=== PATIENT | female | born 1970 | race Caucasian/White ===

== ENCOUNTER 2019-02-11 14:37 | Inpatient (IN) | payer OTHER ==
--- NOTE | 2019-02-11 16:55 | ED ---
Chest Pain HPI - General Chief Complaint: Chest Pain Stated Complaint: chest pain Time Seen by Provider: 02/11/19 14:40 Source: patient, RN/MD, EMS, RN notes reviewed Mode of arrival: EMS - History of Present Illness Initial Comments: Is a 48-year-old female history of heart disease and several stents in the LAD who presents from an outside facility for further evaluation of chest pain. He presented to the other facility with chest pain she did have workup done including troponins a CAT scan of the chest no evidence of pulmonary emboli however due to her symptoms and no cardiac availability she was sent to this facility. She currently is pain-free she denies any fevers chills nausea vomiting sweats or other symptoms she did recently quit smoking in the last 6 months MD Complaint: chest pain, other - Related Data Home Medications Medication Instructions Recorded Confirmed Aspirin EC [Ecotrin Low Dose] 81 mg PO DAILY 02/11/19 02/11/19 Allergies Allergy/AdvReac Type Severity Reaction Status Date / Time cephalexin [From Keflex] Allergy Rash/Hives Verified 02/11/19 15:42 isosorbide [From Imdur] Allergy Anaphylaxis Verified 02/11/19 15:42 Review of Systems ROS Statement: Those systems with pertinent positive or pertinent negative responses have been documented in the HPI. ROS Other: All systems not noted in ROS Statement are negative. EKG Findings - EKG Results: EKG: interpreted by PRINCESS (EKG shows sinus rhythm a 67. Interval 168 QRS duration 70 QT since QTC 438/462 unifocal PVCs noted) Past Medical History Past Medical History: Coronary Artery Disease (CAD), Myocardial Infarction (MD) History of Any Multi-Drug Resistant Organisms: None Reported Past Surgical History: Section, Heart Catheterization With Stent Past Psychological History: No Psychological Hx Reported Smoking Status: Former smoker Past Alcohol Use History: None Reported Past Drug Use History: None Reported General Exam - General Exam Comments Initial Comments: This is a well-developed well-nourished awake alert oriented 3 female General appearance: alert, in no apparent distress Head exam: Present: atraumatic, normocephalic, normal inspection Eye exam: Present: normal appearance, PERRL, EOMI. Absent: scleral icterus, conjunctival injection, periorbital swelling ENT exam: Present: normal exam, mucous membranes moist Neck exam: Present: normal inspection. Absent: tenderness, meningismus, lymphadenopathy Respiratory exam: Present: normal lung sounds bilaterally. Absent: respiratory distress, wheezes, rales, rhonchi, stridor Cardiovascular Exam: Present: regular rate, normal rhythm, normal heart sounds. Absent: systolic murmur, diastolic murmur, rubs, gallop, clicks GI/Abdominal exam: Present: soft, normal bowel sounds. Absent: distended, tenderness, guarding, rebound, rigid Extremities exam: Present: normal inspection, full ROM, normal capillary refill. Absent: tenderness, pedal edema, joint swelling, calf tenderness Back exam: Present: normal inspection Neurological exam: Present: alert, oriented X3, CN II-XII intact Psychiatric exam: Present: normal affect, normal mood Skin exam: Present: warm, dry, intact, normal color. Absent: rash Course Vital Signs 02/11/19 02/11/19 14:48 16:36 Temperature 97.8 F Pulse Rate 60 56 L Respiratory 18 16 Rate Blood Pressure 104/65 125/74 O2 Sat by Pulse 98 99 Oximetry Chest Pain MDM - MDM Did review the materials from the outside facility I did discuss the case with Dr. Smith patient will be admitted with cardiology consultation. Disposition Clinical Impression: Unstable angina pectoris, PVC's (premature ventricular contractions) Disposition: ADMITTED IP TO THIS HOSP Condition: Fair Referrals: None,Stated [Primary Care Provider] - 1-2 days
[2019-02-11] MEDS ORDERED: NITROGLYCERIN SL TABS 0.4 MG TAB SUBLINGUAL PRN (17:02)
[2019-02-11] MEDS ORDERED: HEPARIN SODIUM,PORCINE 5,000 UNIT/ML 1 ML VIAL IV ONE (17:02)
[2019-02-11] MEDS ORDERED: HEPARIN SOD,PORK IN 0.45% NACL 25,000 UNIT in 0.45% NACL 1 250ML.BAG IV SCH (17:15)
[2019-02-11] MEDS ORDERED: ACETAMINOPHEN TAB 325 MG TAB PO PRN (17:23)
--- NOTE | 2019-02-11 17:28 | P.HPIM ---
History of Present Illness H&P Date: 02/11/19 Chief Complaint: Chest pain transfer from [facility] The patient is a 48-year-old female with a past medical history of, essential hypertension, coronary artery disease with stenting of the mid LAD 04/30/17, history of AL who presents to the ER after being transferred from [facility] where she initially presented earlier today with chest pain. Apparently the patient began having chest pain at rest while she was watching TV, she reports chest squeezing and tightness on the left side of her chest with some associated nausea and dry heaves and radiation into her left upper extremity. She reports some shortness of breath and diaphoresis. She denies any lower extremity swelling, she denies palpitations. The patient reported taking a single dose of nitroglycerin with no improvement subsequent repeat dose of nitroglycerin improved her discomfort now rating it at a 2 out of 10. The patient is a former smoker and quit smoking approximate 6 months ago The patient reports her last heart catheterization was when she had her AL in 2011 at [facility] performed by Dr. Ospina. The portion reports that she was supposed to be taking Plavix but has been unable to fill any of her medications secondary to losing insurance over a year ago. She only reports to be taking a daily baby aspirin. The patient had a workup with a negative troponin less than 0.012, chest x-ray showed basilar atelectasis. EKG apparently showed ventricular bigeminy, CTA of the chest was negative for PE but was consistent with calcifications along the left cardiac silhouett, there is nonspecific thickening of the adrenal gland correlate for adrenal hyperplasia. Her other labs were relatively benign Review of Systems Pertinent positives per HPI all other review of systems was negative Past Medical History Past Medical History: Coronary Artery Disease (CAD), Myocardial Infarction (AL) History of Any Multi-Drug Resistant Organisms: None Reported Past Surgical History: Section, Heart Catheterization With Stent Past Psychological History: No Psychological Hx Reported Smoking Status: Former smoker Past Alcohol Use History: None Reported Past Drug Use History: None Reported Medications and Allergies Home Medications Medication Instructions Recorded Confirmed Type Aspirin EC [Ecotrin Low Dose] 81 mg PO DAILY 02/11/19 02/11/19 History Allergies Allergy/AdvReac Type Severity Reaction Status Date / Time cephalexin [From Keflex] Allergy Rash/Hives Verified 10/16/19 15:42 isosorbide [From Imdur] Allergy Anaphylaxis Verified 02/11/19 15:42 Physical Exam Vitals: Vital Signs Temp Pulse Resp BP Pulse Ox 02/11/19 16:36 56 L 16 125/74 99 02/11/19 14:48 97.8 F 60 18 104/65 98 Intake and Output 02/11/19 02/11/19 02/11/19 06:59 14:59 22:59 Other: Weight 81.647 kg Constitutional: No acute distress, conversant, pleasant Eyes: Anicteric sclerae, moist conjunctiva, no lid-lag, PERRLA ENMT: NC/AT,Oropharynx clear, no erythema, exudates Neck:Supple, FROM, no masses, or JVD, No carotid bruits; No thyromegaly Lungs: Clear to auscultation, Clear to percussion, Normal respiratory effort, no accessory muscle use Cardiovascular: Heart regular in rate and rhythm, No murmurs, gallops, or rubs no peripheral edema Abdominal: Soft Nontender, nom distended, no guarding, no rebound or rigidity, Normoactive bowel sounds No hepatomegaly, No splenomegaly, No palpable mass No abdominal wall hernia noted Skin: Normal temperature, tone, texture, turgor, No induration No subcutaneous nodules, No rash, lesions, No ulcers Extremities:No digital cyanosis No clubbing, Pedal pulses intact and symmetrical Radial pulses intact and symmetrical Normal gait and station, No calf tenderness Psychiatric: Alert and oriented to person, place and time, Appropriate affect Intact judgement Neuro: Muscles Strength 5/5 in all 4 extremities, Sensation to light touch grossly present throughout, Cranial nerves II-XII grossly intact. No focal sensory deficits Assessment and Plan Assessment: Chest pain Coronary artery disease with history of stenting History of AL Essential hypertension Dyslipidemia Former smoker Plan: The patient observation anticipated less than 2 midnight stay with chest pain in a patient with a history of AL with CAD with stenting and has been noncompliant with pharmacological therapy over the last year secondary to losing insurance. She is continued on chest pain protocol to rule out ACS, continue to trend her cardiac enzymes initial has been negative, EKG did show ventricular bigeminy without any acute sedation of ischemia. The patient will be started on dual antiplatelet therapy with Plavix and aspirin, we'll check a lipid panel and start her on statin therapy with Lipitor, the patient is continued on heparin drip per protocol will order echocardiogram consult cardiology and await further recommendations CODE STATUS: DNI CPR/chest compressions and medications are acceptable Expected dischar-2 days Surrogate decision-maker: Blaise Samaniegojuliane Jasen Anticipated discharge place: Home Prophylaxis SCDs heparin
[2019-02-11 17:48] VITALS: RESP 18
[2019-02-11] MEDS: NITROGLYCERIN OINT 1 INCH/GM PACKET TOPICAL SCH ×2 (20:56→20:59)
[2019-02-11] MEDS: METOPROLOL TARTRATE 25 MG TAB PO SCH (20:56)
[2019-02-11] MEDS: ATORVASTATIN 40 MG TAB PO SCH (20:56)
[2019-02-12] MEDS ORDERED: HEPARIN SODIUM,PORCINE 5,000 UNIT/ML 1 ML VIAL IV PRN (02:34)
[2019-02-12 04:20] LABS: Cholesterol 167 mg/dL (<200); HDL Cholesterol 46 mg/dL (40-60); LDL Cholesterol,Calculated 95 mg/dL (0-99); Triglycerides 131 mg/dL (<150)
[2019-02-12] MEDS ORDERED: CLOPIDOGREL 75 MG TAB PO SCH (09:00)
[2019-02-12] MEDS ORDERED: ASPIRIN 325 MG TAB PO SCH (09:00)
--- NOTE | 2019-02-12 09:09 | P.PN ---
Subjective Progress Note Date: 02/12/19 Principal diagnosis: cp Denies chest pain today, no abdominal pain, no shortness of breath. He had a run of V. tach overnight. Objective - Vital Signs Vital signs: Vital Signs Temp 98.0 F 02/12/19 07:00 Pulse 71 02/12/19 07:00 Resp 18 02/12/19 07:00 BP 106/69 02/12/19 07:00 Pulse Ox 99 02/12/19 07:15 Intake & Output 02/11/19 02/12/19 02/12/19 18:59 06:59 18:59 Intake Total 87.855 Balance 87.855 Weight 81.647 kg Intake: Intake, IV Titration 87.855 Amount Heparin Sod,Pork in 0.45% 87.855 NaCl 25,000 unit In 0.45 % NaCl 1 250ml.bag @ 12 UNITS/KG/HR 9.798 mls/hr IV .Q24H [facility] Rx#: [id number] Other: Voiding Method Toilet Toilet # Voids 1 - Exam Constitutional: No acute distress, conversant, pleasant Eyes: Anicteric sclerae, moist conjunctiva, no lid-lag, PERRLA ENMT: NC/AT Neck:Supple, FROM, no masses, or JVD Lungs: Clear to auscultation, Clear to percussion Cardiovascular: Heart regular in rate and rhythm Abdominal: Soft Nontender, non distended, no guarding, no rebound or rigidity, Skin: Normal temperature, tone, texture, turgor Extremities:No digital cyanosis No clubbing Psychiatric: Alert and oriented to person, place and time, Appropriate affect Intact judgement Neuro: Muscles Strength 5/5 in all 4 extremities, Sensation to light touch grossly present throughout, Cranial nerves II-XII grossly intact. No focal sensory deficits - Labs Labs: Abnormal Lab Results - Last 24 Hours (Table) 02/12/19 02/12/19 Range/Units 01:42 08:08 APTT 37.1 H 81.8 H (22.0-30.0) sec Assessment and Plan Plan: Chest pain: Continue to monitor, negative cardiac enzymes, appreciate cardiology input. Continue on Plavix and aspirin. On heparin Coronary artery disease with history of stenting and an episode of V. tach: Cardiology following, echo today, possible cath tomorrow History of ID negative cardiac enzymes: Monitor Essential hypertension: Continue lisinopril and metoprolol Dyslipidemia: Continue Lipitor Former smoker without evidence of withdrawal Change to inpatient Disposition: Pending clinical progression
[2019-02-12] MEDS: LISINOPRIL 5 MG TAB PO SCH (10:46)
[2019-02-12] MEDS: PANTOPRAZOLE 40 MG TABLET PO SCH (10:47)
[2019-02-12] MEDS: ASPIRIN 81 MG PO SCH (10:47)
[2019-02-12] MEDS ORDERED: AMINOPHYLLINE 500 MG/20 ML VIAL IV PRN (10:56)
[2019-02-12] MEDS ORDERED: CAFFEINE CITRATE 60 MG/3 ML VIAL IV PRN (10:56)
[2019-02-12] MEDS: METOPROLOL TARTRATE 25 MG TAB PO SCH (11:14)
[2019-02-12] MEDS ORDERED: SODIUM CHLORIDE 0.9% IV ONE (11:15)
[2019-02-12] MEDS ORDERED: DIPYRIDAMOLE IV ONE (11:15)
--- NOTE | 2019-02-12 11:17 | P.CRDCN ---
History of Present Illness History of present illness: This is a pleasant 48-year-old female past medical history significant for coronary artery disease and myocardial infarction in 2011 with stent placement to the mid-LAD then subsequent stenting to the mid-LAD again in 2014 and most recently in April 2017. She also states she has a history of an LV thrombus for which she was on coumadin however lost her insurance around 1-year ago and has not been on meds since that time. She quit smoking 6 months ago. Her cardiology care was all done at [facility]. We have been asked to see her in consultation for chest pain. She initially presented to [facility] and was transferred here for further cardiac evaluation. She states yesterday morning after waking up she was sitting down on the couch watching TV and she felt an acute onset of a squeezing pain in the left precordial region associated with shortness of breath, nausea with dry heaves and mild diaphoresis. The discomfort persisted for the car ride from [place] to [place] despite taking a nitro SL at home. On arrival there she was given 2 more nitro and aspirin. Shortly thereafter the discomfort subsided. She has had no further symptoms. There was no radiation to the arm, back, neck or jaw. She does states this felt different than when she had her GA in 2012 or the in-stent restenosis events. Telemetry tracings reviewed and last evening around 2119 she had a run of 11-beats of wide complex ventricular rhythm. EKG on arrival reveals sinus mechanism with PVC's, inferior Q-wave, poor R-wave progression with heart rate of 67. Chest x-ray obtained to [facility] is negative for an acute cardiopulmonary process. CT of the chest pain to [facility] is negative for pulmonary embolism with evidence of coronary calcification. Laboratory data reviewed, [facility] records reviewed creatinine 0.7, WBC 10.2 and troponin negative 1. Troponins obtained at this facility negative 3 with an LDL of 95. Current cardiac medications include aspirin 81 mg daily. At the time of my exam: CONSTITUTIONAL: Denies fever. Denies chills. EYES: Denies blurred vision. Denies vision changes. Denies eye pain. EARS, NOSE, MOUTH & THROAT: Denies headache. Denies sore throat. Denies ear pain. CARDIOVASCULAR: Denies chest pain. Denies shortness of breath. Denies orthopnea. Denies PND. Denies palpitations. RESPIRATORY: Denies cough. GASTROINTESTINAL: Denies abdominal pain. Denies diarrhea. Denies constipation. Denies nausea. Denies vomiting. MUSCULOSKELETAL: Denies myalgias. INTEGUMENTARY: Denies pruitis. Denies rash. NEUROLOGIC: Denies numbness. Denies tingling. Denies weakness. PSYCHIATRIC: Denies anxiety. Denies depression. ENDOCRINE: Denies fatigue. Denies weight change. Denies polydipsia. Denies polyurina. GENITOURINARY: Denies burning, hematuria or urgency with micturation. HEMATOLOGIC: Denies history of anemia. Denies bleeding. Blood pressure 106/69 heart rate 71 afebrile maintaining oxygen saturation on room air GENERAL: This is a 48-year-old female in no apparent distress at the time of my examination. HEENT: Head is atraumatic, normocephalic. Pupils are equal, round. Sclerae anicteric. Conjunctivae are clear. Mucous membranes of the mouth are moist. Neck is supple. There is no jugular venous distention. No carotid bruit is heard. LUNGS: Clear to auscultation no wheezes, rales or rhonchi. No chest wall tenderness is noted on palpation or with deep breathing. HEART: Regular rate and rhythm with systolic ejection murmur at the left sternal border, no rubs or gallops. S1 and S2 heard. ABDOMEN: Soft, nontender. Bowel sounds are heard. No organomegaly noted. EXTREMITIES: No evidence of peripheral edema and no calf tenderness noted. VASCULAR: Radial and dorsalis pedis pulses palpated, no evidence of clubbing. NEUROLOGIC: Patient is awake, alert and oriented x3. ASSESSMENT Chest pain, an acute coronary event has been ruled out. History of coronary artery disease s/p stent placement to the mid-LAD with in- stent restenosis History of LV thrombus in the past History of myocardial infarction 2012 Former nicotine dependence, quit 6 months ago PLAN Symptoms occur at rest are more atypical, however given her prior history and no medications for over 1-year we recommend cardiac catheterization. However, the patient would like to have a stress test first, she feels her symptoms are different than in the past when she has needed a stent. This is an agreeable plan. We have discussed the need for heart cath if the stress test is abnormal and she is agreeable to that. An acute coronary event has been ruled out. Obtain 2D echocardiogram and doppler study to assess cardiac structure and function. Decrease aspirin to 81 mg daily. Perform persantine stress test it assess for reversible cardiac ischemia. Thank you kindly for this consultation. Nurse Practitioner note has been reviewed, I agree with a documented findings and plan of care. Patient was seen and examined. Past Medical History Past Medical History: Coronary Artery Disease (CAD), Myocardial Infarction (GA) Additional Past Medical History / Comment(s): pt states she had a blood clot in left ventricle and was on coumadin for a period of time and now is off coumadin. Last Myocardial Infarction Date:: April 2017 History of Any Multi-Drug Resistant Organisms: None Reported Past Surgical History: Section, Heart Catheterization With Stent Past Anesthesia/Blood Transfusion Reactions: No Reported Reaction Additional Past Anesthesia/Blood Transfusion Reaction / Comment(s): pt states she has never had a blood transfusion. Date of Last Stent Placement:: Apr 2017 Past Psychological History: No Psychological Hx Reported Smoking Status: Former smoker Past Alcohol Use History: None Reported Past Drug Use History: None Reported - Past Family History Mother Family Medical History: No Reported History Additional Family Medical History / Comment(s): pt does not know. pt is adopted. Father Family Medical History: No Reported History Additional Family Medical History / Comment(s): pt does not know. pt is adopted. Medications and Allergies Home Medications Medication Instructions Recorded Confirmed Type Aspirin EC [Ecotrin Low Dose] 81 mg PO DAILY 02/11/19 02/11/19 History Allergies Allergy/AdvReac Type Severity Reaction Status Date / Time cephalexin [From Keflex] Allergy Rash/Hives Verified 02/11/19 15:42 isosorbide [From Imdur] Allergy Anaphylaxis Verified 02/11/19 15:42 Physical Exam Vitals: Vital Signs Temp Pulse Pulse Pulse Resp BP BP 02/12/19 07:15 02/12/19 07:00 98.0 F 71 18 106/69 02/12/19 04:00 98.3 F 53 L 18 140/78 02/12/19 00:00 98.2 F 56 L 18 117/72 02/11/19 17:47 97.6 F 65 18 02/11/19 17:31 98 F 63 16 123/75 10/16/19 16:36 56 L 16 125/74 02/11/19 14:48 97.8 F 60 18 104/65 BP Pulse Ox 02/12/19 07:15 99 02/12/19 07:00 100 02/12/19 04:00 99 02/12/19 00:00 98 02/11/19 17:47 117/70 99 02/11/19 17:31 99 02/11/19 16:36 99 02/11/19 14:48 98 Intake and Output 02/11/19 02/12/19 02/12/19 22:59 06:59 14:59 Intake Total 87.855 Balance 87.855 Intake: Intake, IV Titration 87.855 Amount Heparin Sod,Pork in 0.45% 87.855 NaCl 25,000 unit In 0.45 % NaCl 1 250ml.bag @ 12 UNITS/KG/HR 9.798 mls/hr IV .Q24H [facility] Rx#: [id number] Other: Voiding Method Toilet Toilet # Voids 1 Results Cardiac Enzymes 02/11/19 02/11/19 02/12/19 Range/Units 15:07 20:44 03:28 Troponin I <0.012 <0.012 <0.012 (0.000-0.034) ng/mL Coagulation 02/12/19 Range/Units 01:42 APTT 37.1 H (22.0-30.0) sec Lipids 02/12/19 Range/Units 03:28 Triglycerides 131 (<150) mg/dL Cholesterol 167 (<200) mg/dL HDL Cholesterol 46 (40-60) mg/dL Current Medications Generic Name Dose Route Start Last Admin Trade Name Freq PRN Reason Stop Dose Admin Acetaminophen 650 mg 02/11/19 17:23 Tylenol Tab PO Q4HR PRN Pain Aspirin 325 mg 02/12/19 09:00 Aspirin PO DAILY [facility] Atorvastatin Calcium 40 mg 02/11/19 21:00 02/11/19 20:56 Lipitor PO 40 mg HS JASMIN Administration Clopidogrel Bisulfate 75 mg 02/12/19 09:00 Plavix PO DAILY [facility] Heparin Sodium (Porcine) 0 unit 02/12/19 02:34 02/12/19 03:59 Heparin IV 4,000 unit PER PROTOCOL PRN Administration Low PTT Protocol Heparin Sodium/Sodium Chloride 250 mls @ 9.798 mls/hr 02/11/19 17:15 02/12/19 02:27 25,000 unit/ Sodium Chloride IV 15 units/kg/hr .Q24H [facility] 12.247 mls/hr Titration Protocol 12 UNITS/KG/HR Lisinopril 5 mg 02/12/19 09:00 Zestril PO DAILY [facility] Metoprolol Tartrate 25 mg 02/11/19 21:00 02/11/19 20:56 Lopressor PO 25 mg BID [facility] Administration Nitroglycerin 0.4 mg 02/11/19 17:02 Nitrostat SUBLINGUAL Q5M PRN Chest Pain Nitroglycerin 1 inch 02/11/19 18:00 02/11/19 20:59 Nitro-Bid Oint TOPICAL Not Given Q6HR [facility] Pantoprazole Sodium 40 mg 02/12/19 07:30 Protonix PO AC-BRKFST [facility] Intake and Output 02/11/19 02/12/19 02/12/19 22:59 06:59 14:59 Intake Total 87.855 Balance 87.855 Intake: Intake, IV Titration 87.855 Amount Heparin Sod,Pork in 0.45% 87.855 NaCl 25,000 unit In 0.45 % NaCl 1 250ml.bag @ 12 UNITS/KG/HR 9.798 mls/hr IV .Q24H [facility] Rx#: [id number] Other: Voiding Method Toilet Toilet # Voids 1
[2019-02-12] MEDS ORDERED: AMINOPHYLLINE 500 MG/20 ML VIAL IV ONE (12:26)
--- NOTE | 2019-02-12 13:22 | NM ---
EXAMINATION TYPE: NM stress persantine cardiolit DATE OF EXAM: 02/12/2019 COMPARISON: NONE HISTORY: Chest pain, shortness of breath, palpitations, and history of tobacco abuse TECHNIQUE: After the intravenous administration of 9.99 mCi Tc 99m Sestamibi - Cardiolite resting SP ECT images acquired 45 minutes post injection. The patient received 46.5 mg Persantine, 26.1 mCi Tc 99m Sestamibi - Stress images obtained 30 minute s post injection FINDINGS: Review of stress and rest SPECT images demonstrates no reversible perfusion abnormality. Moderate fix ed defects are seen of the cardiac apex and of the inferior lateral wall with corresponding abnormal wall motion. Gated analysis shows normal wall motion with an estimated left ventricular ejection frac tion of 41 %. TID is within normal limits measuring 1.02. IMPRESSION: 1. No scintigraphic evidence for reversible ischemia. 2. Moderate fixed defects of the cardiac apex and inferior lateral wall representing old infarcts. 3. Estimated left ventricular ejection fraction of 41%.
--- NOTE | 2019-02-12 18:52 | P.STRESS ---
- Stress Test Note Stress Test Results/Findings: Exam Performed: NM stress persantine cardiolite Exam Date: 02/12/19 Reason for Exam: CHEST PAIN Height: 5 ft 4 in Weight: 81.647 kg Protocol: PERSANTINE Stage: NA Duration of Exercise: NA Resting Heart Rate: 52 Resting Blood Pressure: 109/66 Maximum Achieved Heart Rate: 65 Maximum Achieved Blood Pressure: 140/71 85% PMHR: NA 100% PMHR: NA METS: NA Technologist Comment: Stress Test Results/Findings: This is a 48-year-old female with history of ischemic heart disease with previous stent placement who was admitted to the hospital with complaints of chest pain and shortness of breath and palpitations. EKGs and enzymes were negative. Stress data: Baseline EKG showed sinus rhythm with normal CA interval and QRS duration with small Q waves in inferior leads. Blood pressure at rest is 109/66 with a pulse rate of 52. A standard dose of Persantine was infused. EKGs taken during and after the infusion did not reveal any significant changes from the baseline. Occasional PVCs are noted. Final impression: #1. Negative Persantine stress test #2. Report on the nuclear images to be given by the radiologist
--- NOTE | 2019-02-12 18:53 | ECHOF ---
Referral Reason:Acute Coronary Syndrome MEASUREMENTS -------- HEIGHT: 162.6 cm WEIGHT: 81.6 kg BP: 140/70 RVIDd: 3.5 cm (< 3.3) IVSd: 1.3 cm (0.6 - 1.1) LVIDd: 5.1 cm (3.9 - 5.3) LVPWd: 1.2 cm (0.6 - 1.1) IVSs: 1.5 cm LVIDs: 3.6 cm LVPWs: 1.7 cm LA Diam: 4.8 cm (2.7 - 3.8) LAESV Index (A-L): 41.86 ml/m Ao Diam: 2.8 cm (2.0 - 3.7) AV Cusp: 2.1 cm (1.5 - 2.6) LA Diam: 4.0 cm (2.7 - 3.8) MV EXCURSION: 22.560 mm (> 18.000) MV EF SLOPE: 89 mm/s (70 - 150) EPSS: 0.9 cm MV E Brent: 0.91 m/s MV A Brent: 0.64 m/s MV E/A Ratio: 1.43 RAP: 5.00 mmHg RVSP: 21.84 mmHg TAPSE: 25.08 mm FINDINGS -------- Sinus rhythm. This was a techncally difficult study with suboptimal views, , Lumason utilized for enhancement of im ages. The left ventricular size is normal. Left ventricular wall thickness is normal. Overall left vent ricular systolic function is moderate-severely impaired with, an EF between 30 - 35 %. Anterseptal Hypokinesis Inferior Hypokinesis Septal Hypokinesis Hammond Hypokinesis. The right ventricle is normal in size. The left atrium is markedly dilated. LA is severely dilated >40 ml/m2 The right atrial size is normal. 5.0mg OF Lumason UTLIZED: 2 OR MORE WALL SEGMENTS NOT VISUALIZED. The aortic valve is trileaflet, and appears structurally normal. No aortic stenosis or regurgitation. Mild mitral annular calcification present. Mild mitral regurgitation is present. No regurgitation noted Right ventricular systolic pressure is normal at < 35 mmHg. There is no ev idence of pulmonary hypertension. There is no pulmonic regurgitation present. The aortic root size is normal. There is no pericardial effusion. CONCLUSIONS -------- 1. Sinus rhythm. 2. This was a techncally difficult study with suboptimal views, , Lumason utilized for enhancement of images. 3. The left ventricular size is normal. 4. Left ventricular wall thickness is normal. 5. Overall left ventricular systolic function is moderate-severely impaired with, an EF between 30 - 35 %. 6. Anterseptal Hypokinesis 7. Inferior Hypokinesis 8. Septal Hypokinesis 9. Hammond Hypokinesis. 10. The right ventricle is normal in size. 11. The left atrium is markedly dilated. 12. LA is severely dilated >40 ml/m2 13. The right atrial size is normal. 14. 5.0mg OF Lumason UTLIZED: 2 OR MORE WALL SEGMENTS NOT VISUALIZED. 15. The aortic valve is trileaflet, and appears structurally normal. No aortic stenosis or regurgitat ion. 16. Mild mitral annular calcification present. 17. Mild mitral regurgitation is present. 18. No regurgitation noted 19. Right ventricular systolic pressure is normal at < 35 mmHg. 20. There is no evidence of pulmonary hypertension. 21. There is no pulmonic regurgitation present. 22. The aortic root size is normal. 23. There is no pericardial effusion. STRAIGHT CUTTER MACHINE: Coco Ballesteros RDCS
[2019-02-12] MEDS: METOPROLOL TARTRATE 12.5 MG TAB PO SCH (20:24)
[2019-02-12] MEDS: ATORVASTATIN 40 MG TAB PO SCH (20:24)
[2019-02-13 06:39] LABS: HCT 37.4 % (34.0-46.0); HGB 12.4 gm/dL (11.4-16.0); MCH 31.2 pg (25.0-35.0); MCV 94.5 fL (80.0-100.0); Mean Platelet Volume 6.3; Platelet Count 252 k/uL (150-450); RBC 3.96 m/uL (3.80-5.40); RDW 13.1 % (11.5-15.5); WBC 8.9 k/uL (3.8-10.6)
[2019-02-13 06:43] LABS: ALT 28 U/L (9-52); AST 26 U/L (14-36); African American GFR (CKD) >90 (>60 ml/min/1.73 sqM); Albumin 3.5 g/dL (3.5-5.0); Alkaline Phosphatase 45 U/L (38-126); Anion Gap 6 mmol/L; Blood Urea Nitrogen 14 mg/dL (7-17); Calcium 8.4 mg/dL (8.4-10.2); Carbon Dioxide 28 mmol/L (22-30); Chloride 105 mmol/L (98-107); Glucose 92 mg/dL (74-99); Sodium 139 mmol/L (137-145); Total Bilirubin 0.3 mg/dL (0.2-1.3); Total Protein 6.3 g/dL (6.3-8.2)
[2019-02-13 07:43] LABS: Eosinophils # (M) 0.09 k/uL (0-0.7); Lymphocytes # (M) 2.94 k/uL (1.0-4.8); Monocytes # (M) 0.45 k/uL (0-1.0); Neutrophils % (M) 61 %; Nucleated Red Blood Cells 0 /100 WBC (0-0); Total Cells Counted 100
--- NOTE | 2019-02-13 09:51 | P.PN ---
Subjective This is a pleasant 48-year-old female past medical history significant for coronary artery disease and myocardial infarction in 2011 with stent placement to the mid-LAD then subsequent stenting to the mid-LAD again in 2014 and most recently in April 2017. She also states she has a history of an LV thrombus for which she was on coumadin however lost her insurance around 1-year ago and has not been on meds since that time. She quit smoking 6 months ago. She is seen and examined sitting up in bed in no acute distress. She denies an f urther symptoms of chest discomfort. No shortness of breath, dizziness or palpitations. Blood pressure 114/70 heart rate 58 afebrile maintaining oxygen saturation on room air. Persantine stress test is negative for reversible ischemia with a moderate fixed defect at the cardiac apex and inferior lateral wall. LVEF 41%. Echocardiogram revealed impaired LV systolic function with ejection fraction 30-35%, anterior septal, inferior, septal and apical hypokinesia, mild mitral regurgitation noted. Currently maintained on aspirin 81 mg daily, atorvastatin 40 mg daily, lisinopril 5 mg daily metoprolol 12.5 mg twice a day. Laboratory data reviewed, creatinine 0.74, potassium 4.0. GENERAL: This is a 48-year-old female in no apparent distress at the time of my examination. HEENT: Head is atraumatic, normocephalic. Pupils are equal, round. Sclerae anicteric. Conjunctivae are clear. Mucous membranes of the mouth are moist. Neck is supple. There is no jugular venous distention. No carotid bruit is heard. LUNGS: Clear to auscultation no wheezes, rales or rhonchi. No chest wall tende rness is noted on palpation or with deep breathing. HEART: Regular rate and rhythm with systolic ejection murmur at the left sternal border, no rubs or gallops. S1 and S2 heard. EXTREMITIES: No evidence of peripheral edema and no calf tenderness noted. ASSESSMENT Chest pain, an acute coronary event has been ruled out. History of coronary artery disease s/p stent placement to the mid-LAD with in- stent restenosis History of LV thrombus in the past History of myocardial infarction 2011 Former nicotine dependence, quit 6 months ago PLAN Stable for discharge from a cardiac perspective on the current regimen. Patient states she would like to follow-up in [place] for further cardiac care. A ppointment will be made for her to see Dr. Hart in the office in 2 weeks. Nurse Practitioner note has been reviewed, I agree with a documented findings and plan of care. Patient was seen and examined. Objective - Vital Signs Vital signs: Vital Signs Temp 98.5 F 02/13/19 08:00 Pulse 50 L 02/13/19 08:00 Resp 18 02/13/19 08:00 BP 114/70 02/13/19 08:00 Pulse Ox 98 02/13/19 08:00 Intake & Output 02/12/19 02/13/19 02/13/19 18:59 06:59 18:59 Weight 81.647 kg Other: Voiding Method Toilet Toilet # Voids 1 - Labs CBC & Chem 7: 02/13/19 06:11 02/13/19 06:11
[2019-02-13] MEDS: METOPROLOL TARTRATE 12.5 MG TAB PO SCH (09:59)
[2019-02-13] MEDS: ASPIRIN 81 MG PO SCH (09:59)
[2019-02-13] MEDS: LISINOPRIL 5 MG TAB PO SCH (09:59)
[2019-02-13] MEDS: PANTOPRAZOLE 40 MG TABLET PO SCH (09:59)
[2019-02-13 11:30] VITALS: BP 135/80; PULSE 60; TEMP 98.1
--- NOTE | 2019-02-13 12:29 | P.DS ---
Providers Date of admission: 02/12/19 09:09 Expected date of discharge: 02/13/19 Attending physician: Ishan Smith MD Consults: 02/11/19 17:02 Consult Physician Urgent Consulting Provider: Ab Mckeon Consult Reason/Comments: Chest pain, unstable angina, PVCs Do you want consulting provider notified?: Yes Primary care physician: Stated None Hospital Course: Diagnoses upon discharge: 1. Chest pain, unspecified etiology 2. History of left ventricular thrombus in the past 3. History of myocardial infarction 4. History of tobacco use without evidence of withdrawal 5. Hyperlipidemia 6. Essential hypertension 7. Coronary artery disease 8. Obesity BMI 30.9 9. Chronic systolic congestive heart failure ejection fraction 30-35% HPI: The patient is a 48-year-old female with a past medical history of, essential hypertension, coronary artery disease with stenting of the mid LAD 04/30/17, history of MT who presents to the ER after being transferred from [facility] where she initially presented earlier today with chest pain. Apparently the patient began having chest pain at rest while she was watching TV, she reports chest squeezing and tightness on the left side of her chest with some associated nausea and dry heaves and radiation into her left upper extremity. She reports some shortness of breath and diaphoresis. She denies any lower extremity swelling, she denies palpitations. The patient reported taking a single dose of nitroglycerin with no improvement subsequent repeat dose of nitroglycerin improved her discomfort now rating it at a 2 out of 10. The patient is a former smoker and quit smoking approximate 6 months ago The patient reports her last heart catheterization was when she had her MT in 2011 at [facility] performed by Dr. Ospina. The portion reports that she was supposed to be taking Plavix but has been unable to fill any of her medications secondary to losing insurance over a year ago. She only reports to be taking a daily baby aspirin. The patient had a workup with a negative troponin less than 0.012, chest x-ray showed basilar atelectasis. EKG apparently showed ventricular bigeminy, CTA of the chest was negative for PE but was consistent with calcifications along the left cardiac silhouett, there is nonspecific thickening of the adrenal gland correlate for adrenal hyperplasia. Her other labs were relatively benign Hospital course and treatment: Patient was admitted to the hospital with chest pain, cardiac enzymes were negative. 2-D echo was consistent with EF 30-35%, she was evaluated by cardiology, medications were optimized and prescribed by cardiology. She underwent a stress test which was negative. Her chest pain resolved, she remained hemodynamically stable. Labs were otherwise unremarkable. She was cleared for discharge by cardiology, she will be discharged home to follow-up with PCP and cardiology as an outpatient. Patient Condition at Discharge: Fair Plan - Discharge Summary Discharge Rx Participant: Yes New Discharge Prescriptions: New Atorvastatin [Lipitor] 40 mg PO HS #90 tab Metoprolol Tartrate [Lopressor] 12.5 mg PO BID #180 tab Lisinopril [Zestril] 5 mg PO DAILY #90 tab Aspirin 81 mg PO DAILY chew Pantoprazole [Protonix] 40 mg PO AC-BRKFST tablet. Continue Aspirin EC [Ecotrin Low Dose] 81 mg PO DAILY Discharge Medication List Aspirin EC [Ecotrin Low Dose] 81 mg PO DAILY 02/11/19 [History] Aspirin 81 mg PO DAILY chew 02/13/19 [Rx] Atorvastatin [Lipitor] 40 mg PO HS #90 tab 02/13/19 [Rx] Lisinopril [Zestril] 5 mg PO DAILY #90 tab 02/13/19 [Rx] Metoprolol Tartrate [Lopressor] 12.5 mg PO BID #180 tab 02/13/19 [Rx] Pantoprazole [Protonix] 40 mg PO AC-BRKFST tablet. 02/13/19 [Rx] Follow up Appointment(s)/Referral(s): None,Stated [Primary Care Provider] - 1-2 days Edwin Hart MD [STAFF PHYSICIAN] - 2 Weeks Activity/Diet/Wound Care/Special Instructions: Cardiac diet, activity as tolerated Discharge Disposition: HOME SELF-CARE
--- NOTE | 2019-02-13 12:49 | EST ---
Stress Test Results/Findings: Exam Performed: NM stress persantine cardiolite Exam Date: 02/12/19 Reason for Exam: CHEST PAIN Height: 5 ft 4 in Weight: 81.647 kg Protocol: PERSANTINE Stage: NA Duration of Exercise: NA Resting Heart Rate: 52 Resting Blood Pressure: 109/66 Maximum Achieved Heart Rate: 65 Maximum Achieved Blood Pressure: 140/71 85% PMHR: NA 100% PMHR: NA METS: NA Technologist Comment: Stress Test Results/Findings: This is a 48-year-old female with history of ischemic heart disease with previous stent placement who was admitted to the hospital with complaints of chest pain and shortness of breath and palpitations. EKGs and enzymes were negative. Stress data: Baseline EKG showed sinus rhythm with normal MT interval and QRS duration with small Q waves in inferior leads. Blood pressure at rest is 109/66 with a pulse rate of 52. A standard dose of Persantine was infused. EKGs taken during and after the infusion did not reveal any significant changes from the baseline. Occasional PVCs are noted. Final impression: #1. Negative Persantine stress test #2. Report on the nuclear images to be given by the radiologist SOUMYA
== END 2019-02-13 12:58 | disposition home or self-care (01) | DRG 313 ==
LOC: EC 14:37 → 1SOBS 17:02 → OBSVTOIN 02-12 09:09
PROVIDERS: ADMIT Family Medicine; ATTEND Family Medicine
DX: R07.89 Other chest pain (principal); I47.2 Ventricular tachycardia; I50.22 Chronic systolic (congestive) heart failure; E66.9 Obesity, unspecified; E78.5 Hyperlipidemia, unspecified; I11.0 Hypertensive heart disease with heart failure; I25.10 Atherosclerotic heart disease of native coronary artery without angina pectoris; I25.2 Old myocardial infarction; I49.3 Ventricular premature depolarization; Z68.30 Body mass index [BMI] 30.0-30.9, adult; Z79.82 Long term (current) use of aspirin; Z87.891 Personal history of nicotine dependence; Z95.5 Presence of coronary angioplasty implant and graft; T45.526A Underdosing of antithrombotic drugs, initial encounter; Z91.120 Patient's intentional underdosing of medication regimen due to financial hardship; Z86.718 Personal history of other venous thrombosis and embolism; Z88.1 Allergy status to other antibiotic agents
CPT/HCPCS: 36415; 78452; 80053; 80061; 84484; 85025; 85730; 93005; 93017; 93306; 94760; 96374; 99285

== ENCOUNTER 2019-11-04 20:38 | Emergency (ER) | payer OTHER ==
[2019-11-04] MEDS ORDERED: ACET/COD 300 MG/30 MG STARTER PACK 6 TAB BTL PO STA (22:32)
--- NOTE | 2019-11-04 22:35 | ED ---
Back Pain HPI - General Chief Complaint: Back Pain/Injury Stated Complaint: sciatic nerve pain Time Seen by Provider: 11/04/19 21:03 Source: patient Limitations: no limitations - History of Present Illness Initial Comments: Patient is a 49-year-old female with history of sciatica presenting to emergency Department with a chief complaint of sciatic. Patient states she has been dealing with sciatica-type symptoms radiating to the left lower extremity for approximately one year. Patient reports she woke up this morning with sudden onset of pain that starts near the left sacral region and radiates along the posterior aspect of the left lower extremity to the foot. Patient denies any saddle anesthesia, urinary bowel incontinence. Does report taking [id number] analgesics at home with minimal improvement in symptoms. Denies night sweats or chills. Denies recent weight loss. States she is currently going through difficulties with Medicaid and unable to obtain a primary care physician at this time. - Related Data Home Medications Medication Instructions Recorded Confirmed Aspirin EC [Ecotrin Low Dose] 81 mg PO DAILY 02/11/19 02/11/19 Previous Rx's Medication Instructions Recorded Aspirin 81 mg PO DAILY chew 02/13/19 Atorvastatin [Lipitor] 40 mg PO HS #90 tab 02/13/19 Lisinopril [Zestril] 5 mg PO DAILY #90 tab 02/13/19 Metoprolol Tartrate [Lopressor] 12.5 mg PO BID #180 tab 02/13/19 Pantoprazole [Protonix] 40 mg PO AC-BRKFST tablet. 02/13/19 Cyclobenzaprine [Flexeril] 10 mg PO TID PRN #15 tab 11/04/19 Lidocaine 5% Patch [Lidoderm] 1 patch TOPICAL DAILY #6 patch 11/04/19 Allergies Allergy/AdvReac Type Severity Reaction Status Date / Time cephalexin [From Keflex] Allergy Rash/Hives Verified 02/11/19 15:42 isosorbide [From Imdur] Allergy Anaphylaxis Verified 02/11/19 15:42 Review of Systems ROS Statement: Those systems with pertinent positive or pertinent negative responses have been documented in the HPI. ROS Other: All systems not noted in ROS Statement are negative. Past Medical History Past Medical History: Coronary Artery Disease (CAD), Myocardial Infarction ([place]) Additional Past Medical History / Comment(s): pt states she had a blood clot in left ventricle and was on coumadin for a period of time and now is off coumadin. Last Myocardial Infarction Date:: April 2017 History of Any Multi-Drug Resistant Organisms: None Reported Past Surgical History: Section, Heart Catheterization With Stent Past Anesthesia/Blood Transfusion Reactions: No Reported Reaction Additional Past Anesthesia/Blood Transfusion Reaction / Comment(s): pt states sh denise has never had a blood transfusion. Date of Last Stent Placement:: Apr 2017 Past Psychological History: No Psychological Hx Reported Smoking Status: Former smoker Past Alcohol Use History: None Reported Past Drug Use History: None Reported - Past Family History Mother Family Medical History: No Reported History Additional Family Medical History / Comment(s): pt does not know. pt is adopted. Father Family Medical History: No Reported History Additional Family Medical History / Comment(s): pt does not know. pt is adopted. General Exam Limitations: no limitations General appearance: alert, in no apparent distress, obese Head exam: Present: atraumatic, normocephalic, normal inspection Eye exam: Present: normal appearance, PERRL, EOMI Pupils: Present: normal accommodation ENT exam: Present: normal exam, normal oropharynx, mucous membranes moist. Absent: TM's normal bilaterally, normal external ear exam Neck exam: Present: normal inspection, full ROM. Absent: tenderness Respiratory exam: Present: normal lung sounds bilaterally. Absent: respiratory distress, wheezes Cardiovascular Exam: Present: regular rate, normal rhythm, normal heart sounds GI/Abdominal exam: Present: soft. Absent: distended, tenderness, guarding Extremities exam: Present: normal inspection, full ROM, normal capillary refill. Absent: tenderness Back exam: Present: normal inspection, tenderness, paraspinal tenderness, other (Positive leg raise test on the left leg.). Absent: full ROM (Lateral range of motion with extension.) Neurological exam: Present: alert, oriented X3 Psychiatric exam: Present: normal affect, normal mood Skin exam: Present: warm, dry, intact, normal color Course Vital Signs 11/04/19 20:50 Temperature 98.5 F Pulse Rate 85 Respiratory 16 Rate Blood Pressure 111/71 O2 Sat by Pulse 97 Oximetry Medical Decision Making - Medical Decision Making Patient is a 49-year-old female history of sciatica presenting to emergency Department with chief complaint of sciatica. On exam patient has positive leg raise test. No cauda equina. No red flags. Patient was given Toradol, Lidoderm patch and Flexeril. On reevaluation patient reports improvement in symptoms. She appears to have acute on chronic sciatica type pain. I gave the patient recommendations for a primary care physician as well as an orthopedic spine surgeon. Advised to return to emergency department if symptoms worsen. Will be discharged with Tylenol 3 starter pack, prescription of Flexeril and Lidoderm. Patient advised not to take the Flexeril and Tylenol 3 to go. She was advised about the side effects of medication. Return parameters were thoroughly discussed the patient was understanding and agreeable. Case discussed with physician. Disposition Clinical Impression: Sciatica of left side Disposition: HOME SELF-CARE Instructions (If sedation given, give patient instructions): Sciatica (ED), Lumbar Radiculopathy (ED), Lower Back Exercises (ED) Additional Instructions: Take prescribed medication as directed. Follow with primary care. Return to emergency department if symptoms worsen. Prescriptions: Cyclobenzaprine [Flexeril] 10 mg PO TID PRN #15 tab PRN Reason: Muscle Spasm Lidocaine 5% Patch [Lidoderm] 1 patch TOPICAL DAILY #6 patch Is patient prescribed a controlled substance at d/c from ED?: No Referrals: None,Stated [Primary Care Provider] - 1-2 days Stephane Gomez MD [REFERRING] - 1-2 days Denise Grey DO [Doctor of Osteopathic Medicine] - 1-2 days Time of Disposition: 22:39
[2019-11-06 09:42] VITALS: BP 117/65; PULSE 66; RESP 18; TEMP 97.9
== END 2019-11-04 23:12 | disposition home or self-care (01) ==
LOC: EC 20:38
DX: M54.32 Sciatica, left side (principal); I25.10 Atherosclerotic heart disease of native coronary artery without angina pectoris; I25.2 Old myocardial infarction; Z79.82 Long term (current) use of aspirin; Z88.1 Allergy status to other antibiotic agents; Z88.8 Allergy status to other drugs, medicaments and biological substances; Z95.5 Presence of coronary angioplasty implant and graft; Z87.891 Personal history of nicotine dependence
CPT/HCPCS: 99283

== ENCOUNTER 2019-11-05 22:14 | Emergency (ER) | payer OTHER ==
[2019-11-05] MEDS ORDERED: MORPHINE SULFATE 4 MG/ML SYRINGE IM STA (23:14)
[2019-11-05] MEDS ORDERED: KETOROLAC 60 MG/2 ML VIAL IM STA (23:14)
[2019-11-05] MEDS ORDERED: predniSONE 50 MG TAB PO STA (23:14)
[2019-11-05] MEDS ORDERED: ONDANSETRON ODT 4 MG TAB PO STA (23:14)
--- NOTE | 2019-11-05 23:54 | CT ---
EXAMINATION TYPE: CT lumbar spine wo con DATE OF EXAM: 11/05/2019 COMPARISON: None HISTORY: pain CT DLP: 1543.6 mGycm Automated exposure control for dose reduction was used. Images were obtained from the level of T12-S3 vertebra with no contrast. Normal spacing and alignment. Posterior elements are intact. Facet joints are intact. There is minor spurring of the endplates. There is no compression fracture. There is no lumbar paraspinal mass. I se e no bony destructive process. Sacroiliac joints appear intact. IMPRESSION: Minor degenerative spur formation. No fracture seen. No sign of any significant disc herniation or sp inal stenosis. There is noted sigmoid diverticulosis without diverticulitis.
--- NOTE | 2019-11-06 01:16 | ED ---
General Adult HPI - General Chief complaint: Back Pain/Injury Stated complaint: Pinched sciatic nerve Time Seen by Provider: 11/05/19 22:32 Source: patient, RN notes reviewed, old records reviewed Mode of arrival: wheelchair Limitations: no limitations - History of Present Illness Initial comments: 49-year-old female patient past history of chronic back pain sciatica NC chief complaint of left paralumbar back pain and left gluteal pain. Patient reports the symptoms of ongoing for years, worse the last week. Patient seen this [facility] department yesterday. Patient is unable to get a primary care provider. Patient is denying any paresthesias, weakness, loss of bowel or bladder control, recent falls or trauma. Denies any other areas of pain. States that she cannot Be as she is postmenopausal. Systemic: Pt denies fatigue, fever/chills, rash. Pt denies weakness, night sweats, weight loss. Neuro: Pt denies headache, visual disturbances, syncope or pre-syncope. HEENT: Pt denies ocular discharge or irritation, otalgia, rhinorrhea, pharyngitis or notable lymphadenopathy. Cardiopulmonary: Pt denies chest pain, SOB, heart palpitations, dyspnea on exertion. Abdominal/GI: Pt denies abdominal pain, n/v/d. : Pt denies dysuria, burning w/ urination, frequency/urgency. Denies new onset urinary or bowel incontinence. MSK: Pt denies loss of strength or function in extremities. Neuro: Pt denies new onset weakness, paresthesias. - Related Data Home Medications Medication Instructions Recorded Confirmed Aspirin EC [Ecotrin Low Dose] 81 mg PO DAILY 02/11/19 02/11/19 Previous Rx's Medication Instructions Recorded Aspirin 81 mg PO DAILY chew 02/13/19 Atorvastatin [Lipitor] 40 mg PO HS #90 tab 02/13/19 Lisinopril [Zestril] 5 mg PO DAILY #90 tab 02/13/19 Metoprolol Tartrate [Lopressor] 12.5 mg PO BID #180 tab 02/13/19 Pantoprazole [Protonix] 40 mg PO AC-BRKFST tablet. 02/13/19 Cyclobenzaprine [Flexeril] 10 mg PO TID PRN #15 tab 11/04/19 Lidocaine 5% Patch [Lidoderm] 1 patch TOPICAL DAILY #6 patch 11/04/19 predniSONE 50 mg PO DAILY #4 tab 11/06/19 Allergies Allergy/AdvReac Type Severity Reaction Status Date / Time cephalexin [From Keflex] Allergy Rash/Hives Verified 02/11/19 15:42 isosorbide [From Imdur] Allergy Anaphylaxis Verified 02/11/19 15:42 Review of Systems ROS Statement: Those systems with pertinent positive or pertinent negative responses have been documented in the HPI. ROS Other: All systems not noted in ROS Statement are negative. Past Medical History Past Medical History: Coronary Artery Disease (CAD), Myocardial Infarction ([place]) Additional Past Medical History / Comment(s): pt states she had a blood clot in left ventricle and was on coumadin for a period of time and now is off coumadin. Last Myocardial Infarction Date:: April 2017 History of Any Multi-Drug Resistant Organisms: None Reported Past Surgical History: Section, Heart Catheterization With Stent Past Anesthesia/Blood Transfusion Reactions: No Reported Reaction Additional Past Anesthesia/Blood Transfusion Reaction / Comment(s): pt states she has never had a blood transfusion. Date of Last Stent Placement:: Apr 2017 Past Psychological History: No Psychological Hx Reported Smoking Status: Former smoker Past Alcohol Use History: None Reported Past Drug Use History: None Reported - Past Family History Mother Family Medical History: No Reported History Additional Family Medical History / Comment(s): pt does not know. pt is adopted. Father Family Medical History: No Reported History Additional Family Medical History / Comment(s): pt does not know. pt is adopted. General Exam - General Exam Comments Initial Comments: Constitutional: NAD, AOX3, Pt has pleasant affect. HEENT: NC/AT, trachea midline, neck supple, no lymphadenopathy. Posterior pharynx non erythematous, without exudates. External ears appear normal, without discharge. Mucous membranes moist. Eyes PERRLA, EOM intact. There is no scleral icterus. No pallor noted. Cardiopulmonary: RRR, no murmurs, rubs or gallops, no JVD noted. Lungs CTAB in anterior and posterior proctor. No peripheral edema. Abdominal exam: Abdomen soft and non-distended. Abdomen non-tender to palpation in all 4 quadrants. Bowel sounds active in LLQ. No hepatosplenomegaly. No ecchymosis Neuro: CN II-XII grossly intact. No nuchal rigidity. No raccon eyes, no bradley sign, MSK: Left paralumbar left gluteal region is mildly tender to palpation. No skin changes. No midline Tenderness. No posterior calf tenderness bilaterally, homans sign negative bilaterally. Posterior tibialis +2 bilaterally. Sensation intact in upper and lower extremities. Full active ROM in upper and lower extremities, 5/5 stregnth. Left straight leg raise is positive. Patient is ambulatory. Limitations: no limitations Course Vital Signs 11/05/19 22:16 Temperature 98.3 F Pulse Rate 79 Respiratory 18 Rate Blood Pressure 119/60 O2 Sat by Pulse 98 Oximetry Medical Decision Making - Medical Decision Making 49-year-old female patient past history of chronic back pain sciatica [place] chief complaint of left paralumbar back pain and left gluteal pain. Patient reports the symptoms of ongoing for years, worse the last week. Patient seen this [facility] department yesterday. Patient is unable to get a primary care provider. Patient is denying any paresthesias, weakness, loss of bowel or bladder control, recent falls or trauma. Denies any other areas of pain. States that she cannot Be as she is postmenopausal. Pt VSS, afebrile. Physical exam displayed: Left paralumbar left gluteal region is mildly tender to palpation. No skin changes. No midline Tenderness. No posterior calf tenderness bilaterally, homans sign negative bilaterally. Posterior tibialis pulse +2 bilaterally. Sensation intact in upper and lower extremities. Full active ROM in upper and lower extremities, 5/5 stregnth. Left straight leg raise is positive. Patient is ambulatory. CT lumbar spine as a minor degenerative spur formation. No fracture seen. No sign of any significant disc herniation or spinal stenosis. Patient is feeling much improved. Patient discharged with outpatient orthopedic follow-up as well as steroids. Case discussed with Dr. Marvin. Disposition Clinical Impression: Lumbar back pain Disposition: HOME SELF-CARE Condition: Stable Instructions (If sedation given, give patient instructions): Acute Low Back Pain (ED) Additional Instructions: Take medications as directed. Follow-up with primary care provider and orthopedic consult tomorrow. Return to ER if condition worsens. Prescriptions: predniSONE 50 mg PO DAILY #4 tab Is patient prescribed a controlled substance at d/c from ED?: No Referrals: None,Stated [Primary Care Provider] - 1-2 days Denise Grey, [Doctor of Osteopathic Medicine] - 1-2 days Merlin Cartagena [STAFF PHYSICIAN] - 1-2 days
[2019-11-06 10:30] VITALS: BP 119/60; PULSE 79; RESP 18; TEMP 98.3
== END 2019-11-06 01:37 | disposition home or self-care (01) ==
LOC: EC 22:14
DX: G89.29 Other chronic pain (principal); M54.42 Lumbago with sciatica, left side; I25.10 Atherosclerotic heart disease of native coronary artery without angina pectoris; I25.2 Old myocardial infarction; Z79.82 Long term (current) use of aspirin; Z88.1 Allergy status to other antibiotic agents; Z88.8 Allergy status to other drugs, medicaments and biological substances; Z78.0 Asymptomatic menopausal state; Z87.891 Personal history of nicotine dependence; Z95.5 Presence of coronary angioplasty implant and graft
CPT/HCPCS: 72131; 96372 ×2; 99284; J2270; J1885; J7512

== ENCOUNTER 2019-11-08 00:14 | Emergency (ER) | payer OTHER ==
[2019-11-08 00:21] VITALS: TEMP 98.4
[2019-11-08] MEDS ORDERED: IBUPROFEN 400 MG TAB PO STA (01:00)
[2019-11-08] MEDS ORDERED: HYDROcodone/APAP 7.5-325MG 1 EACH TAB PO ONE (01:01)
[2019-11-08] MEDS ORDERED: ORPHENADRINE 30 MG/ML 2 ML VIAL IM STA (01:28)
[2019-11-08] MEDS ORDERED: KETOROLAC 60 MG/2 ML VIAL IM STA (01:28)
[2019-11-08 01:54] VITALS: BP 114/69; PULSE 60; RESP 18
--- NOTE | 2019-11-08 02:38 | ED ---
Back Pain HPI - General Chief Complaint: Back Pain/Injury Stated Complaint: Pinched sciatic nerve Time Seen by Provider: 11/08/19 00:25 Source: patient Limitations: no limitations - History of Present Illness Initial Comments: This patient is a 49-year-old woman who states she has history of previous sciatic back pain. Patient states she has had worsening of this over the past few days. She was seen here and given a starter pack of Tylenol with Codeine. She was given Flexeril. She states that she had taken these but they're not really helping the symptoms. She is not having any change in bladder or bowel function. No saddle anesthesia. MD Complaint: back pain -: days(s) Similar Symptoms Previously: Yes Place: home Radiation: left leg Severity: severe Severity scale (1-10): 10 Quality: burning, aching Consistency: constant Improves With: none Worsens With: sitting upright Associated Symptoms: denies other symptoms - Related Data Home Medications Medication Instructions Recorded Confirmed Aspirin EC [Ecotrin Low Dose] 81 mg PO DAILY 02/11/19 02/11/19 Previous Rx's Medication Instructions Recorded Aspirin 81 mg PO DAILY chew 02/13/19 Atorvastatin [Lipitor] 40 mg PO HS #90 tab 02/13/19 Lisinopril [Zestril] 5 mg PO DAILY #90 tab 02/13/19 Metoprolol Tartrate [Lopressor] 12.5 mg PO BID #180 tab 02/13/19 Pantoprazole [Protonix] 40 mg PO AC-BRKFST tablet. 02/13/19 Cyclobenzaprine [Flexeril] 10 mg PO TID PRN #15 tab 11/04/19 Lidocaine 5% Patch [Lidoderm] 1 patch TOPICAL DAILY #6 patch 11/04/19 predniSONE 50 mg PO DAILY #4 tab 11/06/19 HYDROcodone/APAP 7.5-325MG [[place] 1 tab PO Q4H PRN 3 Days #18 tab 11/08/19 7.5-325] Methocarbamol [Robaxin-750] 750 mg PO TID PRN #30 tablet 11/08/19 Allergies Allergy/AdvReac Type Severity Reaction Status Date / Time cephalexin [From Keflex] Allergy Rash/Hives Verified 02/11/19 15:42 isosorbide [From Imdur] Allergy Anaphylaxis Verified 02/11/19 15:42 Review of Systems ROS Statement: Those systems with pertinent positive or pertinent negative responses have been documented in the HPI. ROS Other: All systems not noted in ROS Statement are negative. Constitutional: Denies: fever, chills, weakness Respiratory: Denies: cough, dyspnea Cardiovascular: Denies: chest pain, palpitations, edema Gastrointestinal: Denies: abdominal pain, nausea, vomiting, diarrhea, constipation Genitourinary: Denies: dysuria, frequency, hematuria Musculoskeletal: Reports: as per HPI, back pain Skin: Denies: rash Neurological: Denies: weakness, numbness Past Medical History Past Medical History: Coronary Artery Disease (CAD), Myocardial Infarction ([place]) Additional Past Medical History / Comment(s): pt states she had a blood clot in left ventricle and was on coumadin for a period of time and now is off coumadin. Last Myocardial Infarction Date:: April 2017 History of Any Multi-Drug Resistant Organisms: None Reported Past Surgical History: Section, Heart Catheterization With Stent Past Anesthesia/Blood Transfusion Reactions: No Reported Reaction Additional Past Anesthesia/Blood Transfusion Reaction / Comment(s): pt states sh e has never had a blood transfusion. Date of Last Stent Placement:: Apr 2017 Past Psychological History: No Psychological Hx Reported Smoking Status: Former smoker Past Alcohol Use History: None Reported Past Drug Use History: None Reported - Past Family History Mother Family Medical History: No Reported History Additional Family Medical History / Comment(s): pt does not know. pt is adopted. Father Family Medical History: No Reported History Additional Family Medical History / Comment(s): pt does not know. pt is adopted. General Exam Limitations: no limitations General appearance: alert, in no apparent distress Head exam: Present: atraumatic, normocephalic Respiratory exam: Present: normal lung sounds bilaterally. Absent: respiratory distress, wheezes, rales, rhonchi, stridor Cardiovascular Exam: Present: regular rate, normal rhythm, normal heart sounds. Absent: systolic murmur, diastolic murmur, rubs, gallop GI/Abdominal exam: Present: soft. Absent: distended, tenderness, guarding, rebound, rigid, mass, pulsatile mass Extremities exam: Present: normal inspection, normal capillary refill. Absent: pedal edema, calf tenderness Neurological exam: Present: alert, reflexes normal. Absent: motor sensory deficit Skin exam: Present: warm, dry, intact, normal color. Absent: rash Course Vital Signs 11/08/19 11/08/19 00:18 01:53 Temperature 98.4 F Pulse Rate 83 60 Respiratory 16 18 Rate Blood Pressure 113/71 114/69 O2 Sat by Pulse 100 98 Oximetry Medical Decision Making - Medical Decision Making Patient's 49-year-old woman with exacerbation of lumbar radicular pain. She has had decent relief of symptoms with analgesia here and would like to go home for rest. No red flag signs or symptoms. Discussed appropriate follow-up with back specialist and having MRI. Patient will return should there be any worsening. Disposition Clinical Impression: Sciatica Disposition: HOME SELF-CARE Condition: Good Instructions (If sedation given, give patient instructions): Acute Low Back Pain (ED) Prescriptions: HYDROcodone/APAP 7.5-325MG [[place] 7.5-325] 1 tab PO Q4H PRN 3 Days #18 tab PRN Reason: Pain Methocarbamol [Robaxin-750] 750 mg PO TID PRN #30 tablet PRN Reason: pain Is patient prescribed a controlled substance at d/c from ED?: No Referrals: None,Stated [Primary Care Provider] - 1-2 days Denise Grey DO [Doctor of Osteopathic Medicine] - 1-2 days
== END 2019-11-08 03:05 | disposition home or self-care (01) ==
LOC: EC 00:14
DX: M54.42 Lumbago with sciatica, left side (principal); M54.16 Radiculopathy, lumbar region; I25.10 Atherosclerotic heart disease of native coronary artery without angina pectoris; I25.2 Old myocardial infarction; Z79.82 Long term (current) use of aspirin; Z87.891 Personal history of nicotine dependence; Z88.1 Allergy status to other antibiotic agents; Z88.8 Allergy status to other drugs, medicaments and biological substances
CPT/HCPCS: 96372 ×2; 99283; J2360; J1885

== ENCOUNTER 2020-06-23 06:48 | Emergency (ER) | payer OTHER ==
[2020-06-23 07:02] VITALS: BP 133/90; PULSE 75; RESP 20; TEMP 98.5
[2020-06-23] MEDS ORDERED: KETOROLAC 15 MG/ML 1 ML VIAL IM STA (07:22)
--- NOTE | 2020-06-23 07:27 | ED ---
General Adult HPI - General Chief complaint: Extremity Injury, Lower Stated complaint: Fall, R Knee Injury Time Seen by Provider: 06/23/20 07:04 Source: patient, family Mode of arrival: wheelchair Limitations: no limitations - History of Present Illness Initial comments: 49-year-old female presents to the emergency room for bilateral knee pain. Patient slipped on ice this morning and fell on her bilateral knees. Patient states she has severe arthritis in both of her knees and this worsened her pain. Sates her right knee is worse than her left. States she is able to walk but stifflegged. States it is painful to bend her knees. She did not hit her head. She did not sustain any other injuries. Patient has no other complaints at this time including shortness of breath, chest pain, abdominal pain, nausea or vomiting, headache, or visual changes. - Related Data Home Medications Medication Instructions Recorded Confirmed Aspirin EC [Ecotrin Low Dose] 81 mg PO DAILY 02/11/19 02/11/19 Previous Rx's Medication Instructions Recorded Aspirin 81 mg PO DAILY chew 02/13/19 Atorvastatin [Lipitor] 40 mg PO HS #90 tab 02/13/19 Metoprolol Tartrate [Lopressor] 12.5 mg PO BID #180 tab 02/13/19 Pantoprazole [Protonix] 40 mg PO AC-BRKFST tablet. 02/13/19 lisinopriL [Zestril] 5 mg PO DAILY #90 tab 02/13/19 Cyclobenzaprine [Flexeril] 10 mg PO TID PRN #15 tab 11/04/19 Lidocaine 5% Patch [Lidoderm] 1 patch TOPICAL DAILY #6 patch 11/04/19 predniSONE 50 mg PO DAILY #4 tab 11/06/19 HYDROcodone/APAP 7.5-325MG [[place] 1 tab PO Q4H PRN 3 Days #18 tab 11/08/19 7.5-325] Methocarbamol [Robaxin-750] 750 mg PO TID PRN #30 tablet 11/08/19 Allergies Allergy/AdvReac Type Severity Reaction Status Date / Time cephalexin [From Keflex] Allergy Rash/Hives Verified 02/11/19 15:42 isosorbide [From Imdur] Allergy Anaphylaxis Verified 02/11/19 15:42 Review of Systems ROS Statement: Those systems with pertinent positive or pertinent negative responses have been documented in the HPI. ROS Other: All systems not noted in ROS Statement are negative. Past Medical History Past Medical History: Coronary Artery Disease (CAD), Myocardial Infarction ([place]) Additional Past Medical History / Comment(s): pt states she had a blood clot in left ventricle and was on coumadin for a period of time and now is off coumadin. Last Myocardial Infarction Date:: April 2017 History of Any Multi-Drug Resistant Organisms: None Reported Past Surgical History: Section, Heart Catheterization With Stent Past Anesthesia/Blood Transfusion Reactions: No Reported Reaction Additional Past Anesthesia/Blood Transfusion Reaction / Comment(s): pt states she has never had a blood transfusion. Date of Last Stent Placement:: Apr 2017 Past Psychological History: No Psychological Hx Reported Smoking Status: Former smoker Past Alcohol Use History: None Reported Past Drug Use History: None Reported - Past Family History Mother Family Medical History: No Reported History Additional Family Medical History / Comment(s): pt does not know. pt is adopted. Father Family Medical History: No Reported History Additional Family Medical History / Comment(s): pt does not know. pt is adopted. General Exam Limitations: no limitations General appearance: alert, in no apparent distress Head exam: Present: atraumatic, normocephalic, normal inspection Eye exam: Present: normal appearance, PERRL, EOMI. Absent: scleral icterus, conjunctival injection ENT exam: Present: normal exam, mucous membranes moist Neck exam: Present: normal inspection, full ROM. Absent: tenderness Respiratory exam: Present: normal lung sounds bilaterally. Absent: respiratory distress, wheezes Cardiovascular Exam: Present: regular rate, normal rhythm, normal heart sounds GI/Abdominal exam: Present: soft, normal bowel sounds. Absent: distended, tenderness Extremities exam: Present: tenderness (No tenderness to the anterior left knee however patient does have tenderness to the right patella.), normal capillary refill (cap refill less than 2 seconds, DP pulse 2+ right lower extremity), other (Sensation intact bilateral lower extremities.. No lacerations or abrasions.). Absent: full ROM (Patient has about 45 flexion of the bilateral knees, extension to neutral position.), calf tenderness Course Vital Signs 06/23/20 06:56 Temperature 98.5 F Pulse Rate 75 Respiratory 20 Rate Blood Pressure 133/90 O2 Sat by Pulse 100 Oximetry Medical Decision Making - Medical Decision Making Review of the left knee shows no acute fracture or dislocation. X-ray of the right knee for view shows no acute fracture or dislocation. Small joint effusion is present. Patient was given Toradol. Patient should continue Motrin and Tylenol and follow-up with orthopedics. Referral given. She will return here for any worsening symptoms. Disposition Clinical Impression: Knee pain, bilateral Disposition: HOME SELF-CARE Condition: Good Instructions (If sedation given, give patient instructions): Knee Pain (ED) Additional Instructions: Please take Motrin and Tylenol for pain. Please follow-up with orthopedics by calling today for an appointment. Return to the emergency room for worsening symptoms. Is patient prescribed a controlled substance at d/c from ED?: No Referrals: Milton Man MD [STAFF PHYSICIAN] - 1-2 days Time of Disposition: 08:06
--- NOTE | 2020-06-23 07:58 | XR ---
EXAMINATION TYPE: XR knee complete LT DATE OF EXAM: 06/23/2020 CLINICAL HISTORY: pain TECHNIQUE: Frontal, lateral and oblique images of the left foot are obtained. COMPARISON: None. FINDINGS: There is no acute fracture/dislocation evident. The joint spaces appear severely narrowed . The overlying soft tissue appears unremarkable. IMPRESSION: There is no acute fracture or dislocation. ICD 10 NO FRACTURE, INITIAL EVALUATION
--- NOTE | 2020-06-23 07:59 | XR ---
EXAMINATION TYPE: XR knee 4V RT DATE OF EXAM: 06/23/2020 CLINICAL HISTORY: pain TECHNIQUE: 4 views of the right knee are obtained. COMPARISON: None. FINDINGS: There is no acute fracture/dislocation. The tri-compartment joint spaces appear moderatel y narrowed. The overlying soft tissue appears unremarkable. Small joint effusion. IMPRESSION: There is no acute fracture or dislocation.ICD 10 NO FRACTURE, INITIAL EVALUATION
== END 2020-06-23 08:10 | disposition home or self-care (01) ==
LOC: EC 06:48
DX: M25.562 Pain in left knee (principal); M25.561 Pain in right knee; M17.0 Bilateral primary osteoarthritis of knee; I25.2 Old myocardial infarction; Z79.82 Long term (current) use of aspirin; Z88.1 Allergy status to other antibiotic agents; Z88.8 Allergy status to other drugs, medicaments and biological substances; Z87.891 Personal history of nicotine dependence
CPT/HCPCS: 73562; 73564; 99283; 96372; J1885

== ENCOUNTER 2021-02-22 11:03 | Emergency (ER) | payer OTHER ==
[2021-02-22 11:24] VITALS: RESP 18; TEMP 98
[2021-02-22] MEDS ORDERED: MORPHINE SULFATE 4 MG/ML SYRINGE IVP STA (13:03)
--- NOTE | 2021-02-22 13:11 | ED ---
General Adult HPI - General Source: patient, RN notes reviewed Mode of arrival: ambulatory Limitations: no limitations <Jeffry Marte - Last Filed: 02/22/21 15:17> <Brayan Jackson - Last Filed: 02/22/21 16:55> - General Chief complaint: Recheck/Abnormal Lab/Rx Stated complaint: Abnormal EKG per urgent care Time Seen by Provider: 02/22/21 12:37 - History of Present Illness Initial comments: 80-year-old female with a past medical history of CAD, OR in 2018 presents to the emergency room for a chief complaint of left flank pain. Patient states she developed mild left leg pain last night. States it radiates up from her flank to her neck and head. Patient states that it has gradually worsened throughout the day today. Patient denies pain with movement. Patient denies any chest pain or shortness of breath. Patient was previously seen in urgent care and had an EKG performed which they thought looked abnormal so they sent her to the emergency room. (Jeffry Marte) - Related Data Previous Rx's Medication Instructions Recorded Aspirin 81 mg PO DAILY chew 02/13/19 Sulfamethox-Tmp 800-160Mg [Bactrim 1 tab PO Q12HR #28 tab 02/22/21 DS 800-160 mg] Allergies Allergy/AdvReac Type Severity Reaction Status Date / Time cephalexin [From Keflex] Allergy Rash/Hives Verified 02/22/21 14:17 isosorbide [From Imdur] Allergy Anaphylaxis Verified 02/22/21 14:17 Review of Systems ROS Other: All systems not noted in ROS Statement are negative. <Jeffry Marte - Last Filed: 02/22/21 15:17> ROS Other: All systems not noted in ROS Statement are negative. <Brayan Jackson - Last Filed: 02/22/21 16:55> ROS Statement: Those systems with pertinent positive or pertinent negative responses have been documented in the HPI. Past Medical History Past Medical History: Coronary Artery Disease (CAD), Myocardial Infarction ([place]) Additional Past Medical History / Comment(s): pt states she had a blood clot in left ventricle and was on coumadin for a period of time and now is off coumadin. Last Myocardial Infarction Date:: April 2017 History of Any Multi-Drug Resistant Organisms: None Reported Past Surgical History: Section, Heart Catheterization With Stent Past Anesthesia/Blood Transfusion Reactions: No Reported Reaction Additional Past Anesthesia/Blood Transfusion Reaction / Comment(s): pt states she has never had a blood transfusion. Date of Last Stent Placement:: Apr 2017 Past Psychological History: No Psychological Hx Reported Smoking Status: Former smoker Past Alcohol Use History: None Reported Past Drug Use History: None Reported - Past Family History Mother Family Medical History: No Reported History Additional Family Medical History / Comment(s): pt does not know. pt is adopted. Father Family Medical History: No Reported History Additional Family Medical History / Comment(s): pt does not know. pt is adopted. <Jeffry Marte P - Last Filed: 02/22/21 15:17> General Exam Limitations: no limitations General appearance: alert, in no apparent distress Head exam: Present: atraumatic Eye exam: Present: normal appearance, PERRL, EOMI. Absent: scleral icterus, conjunctival injection ENT exam: Present: normal exam, mucous membranes moist Neck exam: Present: normal inspection, full ROM. Absent: tenderness Respiratory exam: Present: normal lung sounds bilaterally. Absent: respiratory distress, wheezes Cardiovascular Exam: Present: regular rate, normal rhythm, normal heart sounds GI/Abdominal exam: Present: soft, normal bowel sounds. Absent: distended, tenderness Back exam: Absent: CVA tenderness (R), CVA tenderness (L) Neurological exam: Present: alert <Jeffry Marte P - Last Filed: 02/22/21 15:17> Course Vital Signs 02/22/21 02/22/21 02/22/21 11:21 12:44 14:24 Temperature 98 F Pulse Rate 85 82 Pulse Rate [ 82 Sitting Pulse Oximetery] Respiratory 18 18 Rate Blood Pressure 133/83 130/78 O2 Sat by Pulse 96 97 Oximetry 02/22/21 16:24 Temperature Pulse Rate 84 Pulse Rate [ Sitting Pulse Oximetery] Respiratory 18 Rate Blood Pressure 132/78 O2 Sat by Pulse 97 Oximetry EKG Findings - EKG Comments: EKG Findings:: Sinus rhythm, ventricular rate 86, pr int 148, QTC 454 <Jeffry Marte P - Last Filed: 02/22/21 15:17> Medical Decision Making - Lab Data Result diagrams: 02/22/21 13:04 02/22/21 13:04 <Jeffry Marte - Last Filed: 02/22/21 15:17> - Lab Data Result diagrams: 02/22/21 13:04 02/22/21 13:04 <Brayan Jackson - Last Filed: 02/22/21 16:55> - Medical Decision Making Vitals are stable. Patient is well-appearing. EKG is unremarkable. CBC does show leukocytosis. CMP unremarkable. Troponin negative. Urinalysis does show positive nitrate with 8 white blood cells and many bacteria. Urine culture pen ding. D-dimer was elevated and therefore CT was ordered (Jeffry Marte) Patient had been sent in to rule out an atypical presentation of ACS from the urgent care. Chief complaint was flank pain this did radiate into her upper back. EKG was negative for ST segment elevation. Troponin and laboratory workup was ordered. Initial troponin negative, I did perform a repeat to ensure us was negative, this was also negative. She had a leukocytosis of uncertain etiology. Urinalysis does show nitrate positive, concerning for UTI. Patient will be covered with Bactrim. Strict return parameters are discussed. (Brayan Jackson) - Lab Data Lab Results 02/22/21 02/22/21 02/22/21 Range/Units 13:04 13:04 13:04 WBC 15.4 H (3.8-10.6) k/uL RBC 4.55 (3.80-5.40) m/uL Hgb 13.8 (11.4-16.0) gm/dL Hct 40.7 (34.0-46.0) % MCV 89.3 (80.0-100.0) fL MCH 30.4 (25.0-35.0) pg MCHC 34.0 (31.0-37.0) g/dL RDW 14.3 (11.5-15.5) % Plt Count 369 (150-450) k/uL MPV 7.2 Neutrophils % (Manual) 77 % Lymphocytes % (Manual) 19 % Monocytes % (Manual) 3 % Basophils % (Manual) 1 % Neutrophils # (Manual) 11.86 H (1.3-7.7) k/uL Lymphocytes # (Manual) 2.93 (1.0-4.8) k/uL Monocytes # (Manual) 0.46 (0-1.0) k/uL Basophils # (Manual) 0.15 (0-0.2) k/uL Nucleated RBCs 0 (0-0) /100 WBC Manual Slide Review Performed D-Dimer (<0.60) mg/L FEU Sodium 134 L (137-145) mmol/L Potassium 4.3 (3.5-5.1) mmol/L Chloride 99 (98-107) mmol/L Carbon Dioxide 25 (22-30) mmol/L Anion Gap 10 mmol/L BUN 11 (7-17) mg/dL Creatinine 0.74 (0.52-1.04) mg/dL Est GFR (CKD-EPI)AfAm >90 (>60 ml/min/1.73 sqM) Est GFR (CKD-EPI)NonAf >90 (>60 ml/min/1.73 sqM) Glucose 110 H (74-99) mg/dL Calcium 9.1 (8.4-10.2) mg/dL Magnesium 1.9 (1.6-2.3) mg/dL Total Bilirubin 0.4 (0.2-1.3) mg/dL AST 17 (14-36) U/L ALT 12 (4-34) U/L Alkaline Phosphatase 75 (38-126) U/L Troponin I (0.000-0.034) ng/mL Total Protein 7.5 (6.3-8.2) g/dL Albumin 4.0 (3.5-5.0) g/dL Urine Color Yellow Urine Appearance Clear (Clear) Urine pH 6.0 (5.0-8.0) Ur Specific [place] 1.012 (1.001-1.035) Urine Protein Negative (Negative) Urine Glucose (UA) Negative (Negative) Urine Ketones Negative (Negative) Urine Blood Moderate H (Negative) Urine Nitrite Positive H (Negative) Urine Bilirubin Negative (Negative) Urine Urobilinogen <2.0 (<2.0) mg/dL Ur Leukocyte Esterase Small H (Negative) Urine RBC 7 H (0-5) /hpf Urine WBC 8 H (0-5) /hpf Urine Bacteria Many H (None) /hpf Urine Mucus Occasional H (None) /hpf 02/22/21 02/22/21 02/22/21 Range/Units 13:04 13:05 16:00 WBC (3.8-10.6) k/uL RBC (3.80-5.40) m/uL Hgb (11.4-16.0) gm/dL Hct (34.0-46.0) % MCV (80.0-100.0) fL MCH (25.0-35.0) pg MCHC (31.0-37.0) g/dL RDW (11.5-15.5) % Plt Count (150-450) k/uL MPV Neutrophils % (Manual) % Lymphocytes % (Manual) % Monocytes % (Manual) % Basophils % (Manual) % Neutrophils # (Manual) (1.3-7.7) k/uL Lymphocytes # (Manual) (1.0-4.8) k/uL Monocytes # (Manual) (0-1.0) k/uL Basophils # (Manual) (0-0.2) k/uL Nucleated RBCs (0-0) /100 WBC Manual Slide Review D-Dimer 1.38 H (<0.60) mg/L FEU Sodium (137-145) mmol/L Potassium (3.5-5.1) mmol/L Chloride (98-107) mmol/L Carbon Dioxide (22-30) mmol/L Anion Gap mmol/L BUN (7-17) mg/dL Creatinine (0.52-1.04) mg/dL Est GFR (CKD-EPI)AfAm (>60 ml/min/1.73 sqM) Est GFR (CKD-EPI)NonAf (>60 ml/min/1.73 sqM) Glucose (74-99) mg/dL Calcium (8.4-10.2) mg/dL Magnesium (1.6-2.3) mg/dL Total Bilirubin (0.2-1.3) mg/dL AST (14-36) U/L ALT (4-34) U/L Alkaline Phosphatase (38-126) U/L Troponin I <0.012 <0.012 (0.000-0.034) ng/mL Total Protein (6.3-8.2) g/dL Albumin (3.5-5.0) g/dL Urine Color Urine Appearance (Clear) Urine pH (5.0-8.0) Ur Specific [place] (1.001-1.035) Urine Protein (Negative) Urine Glucose (UA) (Negative) Urine Ketones (Negative) Urine Blood (Negative) Urine Nitrite (Negative) Urine Bilirubin (Negative) Urine Urobilinogen (<2.0) mg/dL Ur Leukocyte Esterase (Negative) Urine RBC (0-5) /hpf Urine WBC (0-5) /hpf Urine Bacteria (None) /hpf Urine Mucus (None) /hpf Disposition <Jeffry Marte P - Last Filed: 02/22/21 15:17> Is patient prescribed a controlled substance at d/c from ED?: No Time of Disposition: 16:55 <Brayan Jackson - Last Filed: 02/22/21 16:55> Clinical Impression: UTI (urinary tract infection), Flank pain Disposition: HOME SELF-CARE Condition: Fair Instructions (If sedation given, give patient instructions): Urinary Tract Infection in Women (ED), Flank Pain (ED) Prescriptions: Sulfamethox-Tmp 800-160Mg [Bactrim DS 800-160 mg] 1 tab PO Q12HR #28 tab Referrals: None,Stated [Primary Care Provider] - 1-2 days Merlin Cartagena [STAFF PHYSICIAN] - 1-2 days Tati Clemens MD [REFERRING] - 1-2 days
[2021-02-22 13:34] LABS: Appearance,Urine Clear (Clear); Bacteria,Urine Many /hpf; Bilirubin,Urine Negative (Negative); Blood,Urine Moderate (Negative); Color,Urine Yellow; Glucose,Urine (UA) Negative (Negative); Ketones,Urine Negative (Negative); Leukocyte Esterase,Urine Small (Negative); Mucus,Urine Occasional /hpf; Nitrite,Urine Positive (Negative); Protein,Urine Negative (Negative); RBC,Urine 7 /hpf (0-5); Specific Gravity,Urine 1.012 (1.001-1.035); Urobilinogen,Urine <2.0 mg/dL (<2.0); WBC,Urine 8 /hpf (0-5)
[2021-02-22] MEDS ORDERED: ONDANSETRON 4 MG/2 ML VIAL IVP STA (13:41)
[2021-02-22 13:52] LABS: HCT 40.7 % (34.0-46.0); HGB 13.8 gm/dL (11.4-16.0); MCH 30.4 pg (25.0-35.0); MCV 89.3 fL (80.0-100.0); Mean Platelet Volume 7.2; Platelet Count 369 k/uL (150-450); RBC 4.55 m/uL (3.80-5.40); RDW 14.3 % (11.5-15.5); WBC 15.4 k/uL (3.8-10.6)
[2021-02-22 13:58] LABS: ALT 12 U/L (4-34); AST 17 U/L (14-36); African American GFR (CKD) >90 (>60 ml/min/1.73 sqM); Alkaline Phosphatase 75 U/L (38-126); Anion Gap 10 mmol/L; Blood Urea Nitrogen 11 mg/dL (7-17); Calcium 9.1 mg/dL (8.4-10.2); Carbon Dioxide 25 mmol/L (22-30); Chloride 99 mmol/L (98-107); Glucose 110 mg/dL (74-99); Magnesium 1.9 mg/dL (1.6-2.3); Non-African American GFR(CKD) >90 (>60 ml/min/1.73 sqM); Potassium 4.3 mmol/L (3.5-5.1); Sodium 134 mmol/L (137-145); Total Bilirubin 0.4 mg/dL (0.2-1.3); Total Protein 7.5 g/dL (6.3-8.2)
[2021-02-22 14:24] LABS: Basophils # (M) 0.15 k/uL (0-0.2); Lymphocytes # (M) 2.93 k/uL (1.0-4.8); Monocytes # (M) 0.46 k/uL (0-1.0); Neutrophils # (M) 11.86 k/uL (1.3-7.7); Neutrophils % (M) 77 %; Nucleated Red Blood Cells 0 /100 WBC (0-0); Total Cells Counted 100
[2021-02-22] MEDS ORDERED: HYDROmorphone 0.5 MG/0.5 ML SYRINGE IVP STA (15:44)
--- NOTE | 2021-02-22 15:51 | CT ---
EXAMINATION TYPE: CT angio thor/abd pel aorta DATE OF EXAM: 02/22/2021 COMPARISON: None HISTORY: Abnormal EKG, sharp mid back pain CT DLP: 1958.2 mGycm CONTRAST: CTA thoracic and abdominal aorta with 3-D reconstruction is performed and without and with IV Contras t, patient injected with 100 mL of Isovue 370. Contrast CTA of the thoracic and abdominal aorta was performed from the lung apex through the base of the pelvis. 3-D reconstruction imaging obtained at a separate workstation. CT Chest: THORACIC AORTA: There is no evidence for aneurysm. No dissection or mediastinal hematoma. Mild ath eromatous changes are seen. LUNGS: The lungs are clear and free of infiltrate or atelectasis. No pulmonary nodule or mass is det ected. No pleural effusion or CT evidence of interstitial lung disease. MEDIASTINUM: The heart is not enlarged. No evidence for mediastinal mass or adenopathy. HILAR STRUCTURES: No evidence for mass. No hilar adenopathy is appreciated. OTHER: Small hiatal hernia. CONTRAST CT ABDOMEN AND PELVIS ABDOMINAL AORTA: No evidence for abdominal aortic aneurysm. No dissection. Iliac vessels are symmet julianne and patent. LIVER/GB- No significant abnormality is seen. PANCREAS- No significant abnormality is seen. SPLEEN- No significant abnormality is seen. ADRENALS- No significant abnormality is seen. KIDNEYS/BLADDER- No significant abnormality is seen. BOWEL-sigmoid diverticulosis without diverticulitis. GENITAL ORGANS: No gross abnormality seen. LYMPH NODES- No greater than 1cm abdominal or pelvic lymph nodes are appreciated. OSSEOUS STRUCTURES- No significant abnormality is seen. OTHER- No significant abnormality is seen. IMPRESSION- 1. No evidence for thoracic or abdominal aortic aneurysm or dissection.
[2021-02-22 16:30] VITALS: BP 132/78; PULSE 84
[2021-02-22] MEDS ORDERED: SULFAMETHOX-TMP 800-160MG 1 EACH TAB PO STA (16:59)
== END 2021-02-22 17:09 | disposition home or self-care (01) ==
LOC: EC 11:03
DX: N39.0 Urinary tract infection, site not specified (principal); I25.10 Atherosclerotic heart disease of native coronary artery without angina pectoris; I25.2 Old myocardial infarction; Z79.82 Long term (current) use of aspirin; Z88.1 Allergy status to other antibiotic agents; Z87.891 Personal history of nicotine dependence
CPT/HCPCS: 99284; 96374; 96375 ×2; 36415; 85379; 80053; 83735; 84484; 85025; 81001; 87086; 71275; 74174; J2270; J2405; J1170; Q9967; 93005

== ENCOUNTER 2021-08-09 23:23 | Emergency (ER) | payer OTHER ==
[2021-08-10 00:07] VITALS: BP 145/89; PULSE 88; RESP 16; TEMP 97.4
--- NOTE | 2021-08-10 00:25 | XR ---
EXAMINATION TYPE: XR ankle complete LT DATE OF EXAM: 08/10/2021 COMPARISON: NONE HISTORY: Pain TECHNIQUE: 3 views FINDINGS: There is plantar and Achilles calcaneal spurring. Ankle mortise is anatomic. I see no fract ure nor dislocation. Subtalar joint is intact. IMPRESSION: Calcaneal spurring. No fracture seen.
[2021-08-10] MEDS ORDERED: ACETAMINOPHEN TAB 500 MG TAB PO STA (02:28)
--- NOTE | 2021-08-10 02:38 | ED ---
Lower Extremity Injury HPI - General Chief Complaint: Extremity Injury, Lower Stated Complaint: fall, left ankle injury Time Seen by Provider: 08/10/21 02:13 Source: patient, RN notes reviewed Mode of arrival: ambulatory - History of Present Illness MD Complaint: ankle injury (Patient was coming down the steps to go to work and slipped twisting her left ankle. She is describing inversion type injury. Pain to the lateral ankle.), other (No distal or proximal pain or injury. No paresthesias. Patient able to ambulate with antalgia) Onset/Timin -: hour(s) Injury: Ankle: Left Type of Injury: inversion Place: home Severity: moderate Severity scale (1-10): 6 Improves With: rest Worsens With: weight bearing, movement, palpation Context: other (Twisted) - Related Data Previous Rx's Medication Instructions Recorded Aspirin 81 mg PO DAILY chew 02/13/19 Sulfamethox-Tmp 800-160Mg [Bactrim 1 tab PO Q12HR #28 tab 02/22/21 DS 800-160 mg] Acetaminophen [Tylenol] 500 mg PO Q4-6H PRN #24 tab 08/10/21 Ibuprofen [Motrin] 600 mg PO Q8HR PRN #30 tab 08/10/21 Allergies Allergy/AdvReac Type Severity Reaction Status Date / Time cephalexin [From Keflex] Allergy Rash/Hives Verified 08/10/21 00:04 isosorbide [From Imdur] Allergy Anaphylaxis Verified 08/10/21 00:04 Review of Systems ROS Statement: Those systems with pertinent positive or pertinent negative responses have been documented in the HPI. ROS Other: All systems not noted in ROS Statement are negative. Past Medical History Past Medical History: Coronary Artery Disease (CAD), Myocardial Infarction ([place]) Additional Past Medical History / Comment(s): pt states she had a blood clot in left ventricle and was on coumadin for a period of time and now is off coumadin. Last Myocardial Infarction Date:: April 2017 History of Any Multi-Drug Resistant Organisms: None Reported Past Surgical History: Section, Heart Catheterization With Stent Past Anesthesia/Blood Transfusion Reactions: No Reported Reaction Additional Past Anesthesia/Blood Transfusion Reaction / Comment(s): pt states she has never had a blood transfusion. Date of Last Stent Placement:: Apr 2017 Past Psychological History: No Psychological Hx Reported Smoking Status: Former smoker Past Alcohol Use History: None Reported Past Drug Use History: None Reported - Past Family History Mother Family Medical History: No Reported History Additional Family Medical History / Comment(s): pt does not know. pt is adopted. Father Family Medical History: No Reported History Additional Family Medical History / Comment(s): pt does not know. pt is adopted. General Exam General appearance: alert, in no apparent distress Head exam: Present: atraumatic, normocephalic, normal inspection Eye exam: Present: normal appearance, PERRL, EOMI. Absent: scleral icterus, conjunctival injection, periorbital swelling ENT exam: Present: normal exam, mucous membranes moist Neck exam: Present: normal inspection. Absent: tenderness, meningismus, lymphadenopathy Respiratory exam: Present: normal lung sounds bilaterally. Absent: respiratory distress, wheezes, rales, rhonchi, stridor Cardiovascular Exam: Present: regular rate, normal rhythm, normal heart sounds. Absent: systolic murmur, diastolic murmur, rubs, gallop, clicks GI/Abdominal exam: Present: soft, normal bowel sounds. Absent: distended, tenderness, guarding, rebound, rigid Extremities exam: Present: normal inspection, full ROM, normal capillary refill. Absent: tenderness, pedal edema, joint swelling, calf tenderness Left Knee exam: Present: normal inspection, full ROM. Absent: tenderness, swelling, abrasion, laceration, ecchymosis, deformity, crepitus, dislocation, erythema, effusion Lower Leg exam: Present: normal inspection. Absent: full ROM, tenderness, swelling, abrasion Ankle exam: Present: tenderness (Tender over the anterior talofibular ligament, no bony point tenderness.), swelling. Absent: full ROM, abrasion, laceration, ecchymosis, deformity, crepitus, dislocation, erythema Foot/Toe exam: Present: normal inspection. Absent: full ROM, tenderness, swelling, abrasion, laceration Neurovascular tendon exam: Present: no vascular compromise. Absent: pulse deficit, abnormal cap refill, motor deficit, sensory deficit, tendon deficit, extremity cold to touch, pallor, abnormal 2-point discrimination, decreased fine/light touch, foot drop, peroneal nerve deficit, significant pain with passive ROM of distal joint Gait: antalgic Back exam: Present: normal inspection Neurological exam: Present: alert, oriented X3, CN II-XII intact Psychiatric exam: Present: normal affect, normal mood Skin exam: Present: warm, dry, intact, normal color. Absent: rash Course Vital Signs 08/10/21 00:04 Temperature 97.4 F L Pulse Rate 88 Respiratory 16 Rate Blood Pressure 145/89 O2 Sat by Pulse 98 Oximetry Procedures - Orthopedic Splinting/Casting Injury #1 Side: left Lower Extremity Injury Location: ankle Lower Extremity Immobilizer: [employer] Additional Comments: Distal neurovascular status intact both pre-and post-application. Splint applied by me. Medical Decision Making - Medical Decision Making Isolated left ankle injury. No evidence of fracture. Tender over the ATF ligament. Patient counseled on conservative therapy. All questions answered. Patient was told to return to the ER for any signs or symptoms worsen. Told to return immediately if any other problems arise. All questions answered. Treatment plan discussed. Patient in agreement Every effort has been made to ensure accuracy of this dictation. However, due to the limitations of electronic medical records and dictation devices, errors in charting still occur. - Radiology Data Radiology results: report reviewed (No evidence of acute fracture), image reviewed Disposition Clinical Impression: Sprain of anterior talofibular ligament of left ankle Disposition: HOME SELF-CARE Condition: Good Instructions (If sedation given, give patient instructions): Ankle Sprain (ED) Additional Instructions: Follow-up with your regular physician as directed. Return to the ER immediately if any symptoms worsen, new symptoms arise, or any other problems develop. Is patient prescribed a controlled substance at d/c from ED?: No Referrals: Alejandro Sood MD [STAFF PHYSICIAN] - 08/17/21 Time of Disposition: 02:28
== END 2021-08-10 02:45 | disposition home or self-care (01) ==
LOC: EC 23:23
DX: S93.492A Sprain of other ligament of left ankle, initial encounter (principal); I25.2 Old myocardial infarction; Z87.891 Personal history of nicotine dependence; Z88.1 Allergy status to other antibiotic agents; Z88.6 Allergy status to analgesic agent; W10.8XXA Fall (on) (from) other stairs and steps, initial encounter
CPT/HCPCS: 29505; 99283

== ENCOUNTER 2022-01-06 20:36 | Inpatient (IN) | payer OTHER ==
[2022-01-06] MEDS ORDERED: ASPIRIN 81 MG PO STA (21:04)
[2022-01-06] MEDS ORDERED: NITROGLYCERIN SL TABS 0.4 MG TAB SUBLINGUAL PRN (21:11)
--- NOTE | 2022-01-06 21:16 | ED ---
Chest Pain HPI - General Chief Complaint: Chest Pain Stated Complaint: chest pains Time Seen by Provider: 01/06/22 21:03 Source: patient, RN notes reviewed, old records reviewed Mode of arrival: ambulatory Limitations: no limitations - History of Present Illness Initial Comments: 51-year-old female presents to the emergency room with complaints of substernal chest pain at since this afternoon when she was sitting. She states that she did get diaphoretic and the pain lasted approximately 10 - 15 minutes. She states this is similar to when she had heart attack in the past. She does have a history of cardiac stent placed in 2018. 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 She is also complaining of increased swelling in her feet and bynum ds with some shortness of breath. She denies any fevers, no nausea vomiting or diarrhea. Nonsmoker. MD Complaint: chest pain -: hour(s) (6) Onset: during rest Pain Location: substernal Pain Radiation: none Severity scale (1-10): 8 Quality: similar to prior ND, other (pressure) Consistency: intermittent Improves With: nothing Worsens With: nothing Anginal Symptoms: diaphoresis Other Symptoms: leg swelling Treatments Prior to Arrival: none - Related Data On Oral Contraceptives: No Previous Rx's Medication Instructions Recorded Aspirin 81 mg PO DAILY chew 02/13/19 Sulfamethox-Tmp 800-160Mg [Bactrim 1 tab PO Q12HR #28 tab 02/22/21 DS 800-160 mg] Acetaminophen [Tylenol] 500 mg PO Q4-6H PRN #24 tab 08/10/21 Ibuprofen [Motrin] 600 mg PO Q8HR PRN #30 tab 08/10/21 Allergies Allergy/AdvReac Type Severity Reaction Status Date / Time cephalexin [From Keflex] Allergy Rash/Hives Verified 01/06/22 20:47 isosorbide [From Imdur] Allergy Anaphylaxis Verified 01/06/22 20:47 Review of Systems ROS Statement: Those systems with pertinent positive or pertinent negative responses have been documented in the HPI. ROS Other: All systems not noted in ROS Statement are negative. EKG Findings - EKG Results: EKG: sinus rhythm (Sinus rhythm with ventricular rate 61, TN interval 0.164, QRS 0.84, QTC 0.382) Past Medical History Past Medical History: Coronary Artery Disease (CAD), Myocardial Infarction ([place]) Additional Past Medical History / Comment(s): pt states she had a blood clot in left ventricle and was on coumadin for a period of time and now is off coumadin. Last Myocardial Infarction Date:: April 2017 History of Any Multi-Drug Resistant Organisms: None Reported Past Surgical History: Section, Heart Catheterization With Stent Past Anesthesia/Blood Transfusion Reactions: No Reported Reaction Additional Past Anesthesia/Blood Transfusion Reaction / Comment(s): pt states she has never had a blood transfusion. Date of Last Stent Placement:: Apr 2017 Past Psychological History: No Psychological Hx Reported Smoking Status: Former smoker Past Alcohol Use History: None Reported Past Drug Use History: None Reported - Past Family History Mother Family Medical History: No Reported History Additional Family Medical History / Comment(s): pt does not know. pt is adopted. Father Family Medical History: No Reported History Additional Family Medical History / Comment(s): pt does not know. pt is adopted. General Exam Limitations: no limitations General appearance: alert, in no apparent distress Head exam: Present: atraumatic Eye exam: Present: normal appearance. Absent: scleral icterus, conjunctival injection, periorbital swelling, periorbital tenderness ENT exam: Present: normal exam Neck exam: Present: full ROM. Absent: tenderness, meningismus Respiratory exam: Present: normal lung sounds bilaterally. Absent: respiratory distress, wheezes, rales, rhonchi, stridor, chest wall tenderness, accessory muscle use, decreased breath sounds Cardiovascular Exam: Present: regular rate, normal rhythm GI/Abdominal exam: Present: soft. Absent: distended, tenderness, rigid Extremities exam: Present: full ROM, normal capillary refill, pedal edema (Nonpitting). Absent: tenderness Back exam: Present: normal inspection. Absent: tenderness, CVA tenderness (R), CVA tenderness (L), rash noted Neurological exam: Present: alert, oriented X3 Psychiatric exam: Present: normal affect, normal mood Skin exam: Present: warm, dry, intact, normal color. Absent: cyanosis, diaphoretic, erythema, pallor Course Vital Signs 01/06/22 01/06/22 01/06/22 20:43 22:00 23:23 Temperature 97.9 F Pulse Rate 72 58 L 72 Respiratory 18 16 16 Rate Blood Pressure 176/89 148/87 143/86 O2 Sat by Pulse 98 100 99 Oximetry 01/07/22 00:43 Temperature Pulse Rate 65 Respiratory 16 Rate Blood Pressure 149/76 O2 Sat by Pulse 100 Oximetry Chest Pain MDM - MDM Patient presents with midsternal chest pain at rest lasting 15 minutes with diaphoresis. Patient's last stress test was in 2018 which was negative. She did have a thoracic aortic CT done January 2021 and was negative for aneurysm or dissection. Chest x-ray shows no acute cardiopulmonary disease. EKG shows sinus rhythm with no acute ST elevation. Troponin is negative 0.012 BNP 455. Due to patient's cardiac history she will be placed in observation with cardiology consult and echocardiogram. Patient is agreeable to this plan of care. Disposition Clinical Impression: Chest pain at rest Disposition: ADMITTED IP TO THIS HOSP Condition: Good Decision Date: 01/06/22 Decision Time: 23:10
[2022-01-06 22:13] LABS: ALT 18 U/L (4-34); African American GFR (CKD) >90 (>60 ml/min/1.73 sqM); Anion Gap 10 mmol/L; Blood Urea Nitrogen 19 mg/dL (7-17); Calcium 8.4 mg/dL (8.4-10.2); Carbon Dioxide 24 mmol/L (22-30); Chloride 104 mmol/L (98-107); Glucose 91 mg/dL (74-99); Non-African American GFR(CKD) >90 (>60 ml/min/1.73 sqM); Sodium 138 mmol/L (137-145); Total Bilirubin 0.6 mg/dL (0.2-1.3)
--- NOTE | 2022-01-06 22:16 | XR ---
EXAMINATION TYPE: XR chest 2V DATE OF EXAM: 01/06/2022 COMPARISON: NONE HISTORY: Chest pain TECHNIQUE: 2 views FINDINGS: Heart and mediastinum are normal. Lungs are clear. Diaphragm is normal. Bony thorax is inta ct. IMPRESSION: Normal chest.
[2022-01-06 22:20] LABS: AST 31 U/L (14-36); Albumin 3.9 g/dL (3.5-5.0); Alkaline Phosphatase 38 U/L (38-126); Potassium 4.7 mmol/L (3.5-5.1); Total Protein 6.5 g/dL (6.3-8.2)
[2022-01-06 22:21] LABS: Magnesium 1.9 mg/dL (1.6-2.3)
[2022-01-06 22:24] LABS: INR 0.9 (<1.2); Partial Thromboplastin Time 24.3 sec (22.0-30.0); Prothrombin Time 9.9 sec (9.0-12.0)
[2022-01-06 22:31] LABS: Basophils # (A) 0.1 k/uL (0-0.2); Basophils % (A) 1 %; Eosinophils # (A) 0.6 k/uL (0-0.7); Eosinophils % (A) 5 %; HCT 39.5 % (34.0-46.0); HGB 12.7 gm/dL (11.4-16.0); Lymphocytes # (A) 4.3 k/uL (1.0-4.8); Lymphocytes % (A) 42 %; MCH 29.4 pg (25.0-35.0); MCV 91.7 fL (80.0-100.0); Mean Platelet Volume 7.8; Monocytes # (A) 1.1 k/uL (0-1.0); Monocytes % (A) 10 %; Neutrophils # (A) 3.9 k/uL (1.3-7.7); Neutrophils % (A) 38 %; Platelet Count 271 k/uL (150-450); RBC 4.31 m/uL (3.80-5.40); RDW 13.6 % (11.5-15.5); WBC 10.4 k/uL (3.8-10.6)
[2022-01-06] MEDS ORDERED: ACETAMINOPHEN TAB 325 MG TAB PO PRN (23:13)
[2022-01-06] MEDS ORDERED: NALOXONE 0.4 MG/ML 1 ML VIAL IV PRN (23:13)
[2022-01-07] MEDS ORDERED: HEPARIN SODIUM 1,000 UN/ML (10ML VL) IV ONE (02:45)
[2022-01-07 04:31] LABS: Partial Thromboplastin Time 24.6 sec (22.0-30.0); Prothrombin Time 10.4 sec (9.0-12.0)
[2022-01-07] MEDS: HEPARIN SOD,PORK IN 0.45% NACL 25,000 UNIT in 0.45% NACL 1 250ML.BAG IV SCH (06:04)
--- NOTE | 2022-01-07 08:33 | P.HPIM ---
History of Present Illness H&P Date: 01/07/22 History of Presenting Illness: Patient is a 51-year-old female with a past medical history of CAD with stent to LAD and history of reported restenosis of stent with need for replacement of stent, ischemic cardiomyopathy with previously known EF of 30-35%, hypertension, and history of ventricular thrombus. Patient reports she has been off of her medications as she lost her insurance and: No longer afford medication. Patient has states she has been taking a baby aspirin daily while she is trying to get insurance through Medicaid. She presented to the emergency department with the chief complaint of chest pain. Patient reports while lying on her couch at home she began having pain to her left anterior chest in which she describes as a heaviness and squeezing sensation. Patient reports pain felt as though someone was sitting on her chest and squeezing her heart. Patient reports in addition to this she has noticed some increased lower extremity edema and exertional shortness of breath. She denies having any dizziness, lightheadedness, palpitations, abdominal pain, nausea, vomiting, or experiencing any numbness/tingling/weakness in her extremities. She underwent full evaluation in the emergency department CBC, coags, and CMP were unremarkable. Troponin neg ative at less than 0.012. EKG showing sinus rhythm at 61 bpm with no noted T wave or ST abnormality showing no signs of acute ischemia. Chest x-ray negative for acute cardiopulmonary process. Patient was given aspirin 324 mg 1 dose and started on heparin infusion for treatment of unstable angina. She was admitted under our services with consultation to cardiology. Review of systems: Pertinent positives and negatives as discussed in HPI, a complete review of systems was performed and all other systems are negative. Physical exam: Vital signs reviewed and stable. General: Nontoxic, no distress and appears stated age. Derm: Skin warm and dry, normal coloration for ethnicity. Head: Atraumatic, normocephalic and symmetric. Eyes: EOMs intact, no lid lag, and anicteric sclera Mouth: no lip lesions, mucus membranes moist Cardiovascular: regular rate and rhythm with normal S1S2, no murmur, positive posterior tibial pulses bilaterally, and cap refill < 2 seconds. Lungs: Respirations even, regular, and unlabored on room air. Lungs CTA bilaterally, no rhonchi, no rales, no wheezing, and no accessory muscle usage. Abdominal: soft, nontender to palpation, no guarding, no appreciable organomegaly Ext: ROM intact. No gross muscle atrophy, bilateral lower extremity edema, no contractures Neuro: Speech clear, face symmetrical and CN II-XII grossly intact with no noted focal neuro deficits Psych: Alert and oriented to person, place, time, and situation. Appropriate and pleasant affect. Assessment and Plan of Care: Chest pain, rule out acute coronary event Acute on chronic systolic heart failure with exertional dyspnea and bilateral lower extremity edema History of CAD with stent History of ischemic cardiomyopathy with previously known EF of 30-35% Hypertension History of ventricular thrombus -Cardiology consult, appreciate further recommendations -Continue heparin infusion -Telemetry monitoring -Trend troponins -Lasix 40 mg IVP daily -Cardiac diet, NPO at midnight -Aspirin, atorvastatin, and metoprolol -Lipid profile with a.m. labs. -Echocardiogram Medication noncompliance -Social work consulted for assistance with insurance/medications upon discharge The patient is admitted with an anticipated less than 2 midnight stay for evaluation of chest pain, rule out unstable angina CODE STATUS: Full code DVT prophylaxis: Heparin Discussed with: Patient and RN Anticipated discharge date: 1-[address]: Home A total of 44 minutes was spent on the care of this complex patient more than 50% of the time was spent in counseling and care coordination. Past Medical History Past Medical History: Coronary Artery Disease (CAD), Myocardial Infarction (ME) Additional Past Medical History / Comment(s): pt states she had a blood clot in left ventricle and was on coumadin for a period of time and now is off coumadin. Last Myocardial Infarction Date:: April 2017 History of Any Multi-Drug Resistant Organisms: None Reported Past Surgical History: Section, Heart Catheterization With Stent Past Anesthesia/Blood Transfusion Reactions: No Reported Reaction Additional Past Anesthesia/Blood Transfusion Reaction / Comment(s): pt states she has never had a blood transfusion. Date of Last Stent Placement:: Apr 2017 Past Psychological History: No Psychological Hx Reported Smoking Status: Former smoker Past Alcohol Use History: None Reported Past Drug Use History: None Reported - Past Family History Mother Family Medical History: No Reported History Additional Family Medical History / Comment(s): pt does not know. pt is adopted. Father Family Medical History: No Reported History Additional Family Medical History / Comment(s): pt does not know. pt is adopted. Medications and Allergies Home Medications Medication Instructions Recorded Confirmed Type Aspirin 81 mg PO DAILY chew 02/13/19 01/07/22 Rx Allergies Allergy/AdvReac Type Severity Reaction Status Date / Time cephalexin [From Keflex] Allergy Rash/Hives Verified 01/07/22 13:07 isosorbide [From Imdur] Allergy Anaphylaxis Verified 01/07/22 13:07 Physical Exam Vitals: Vital Signs Temp Pulse Pulse Resp BP BP Pulse Ox 01/07/22 07:30 98.2 F 66 14 155/79 96 01/07/22 07:21 20 01/07/22 04:00 97.9 F 71 20 165/68 96 01/07/22 00:43 65 16 149/76 100 01/06/22 23:23 72 16 143/86 99 01/06/22 22:00 58 L 16 148/87 100 01/06/22 20:43 97.9 F 72 18 176/89 98 Intake and Output 01/06/22 01/07/22 01/07/22 22:59 06:59 14:59 Other: Weight 90.718 kg 90.718 kg Results CBC & Chem 7: 01/06/22 21:30 01/06/22 21:30 Labs: Abnormal Lab Results - Last 24 Hours (Table) 01/06/22 01/06/22 Range/Units 21:30 21:30 Monocytes # 1.1 H (0-1.0) k/uL BUN 19 H (7-17) mg/dL Thrombosis Risk Factor Assmnt - Choose All That Apply Each Factor Represents 1 point: Age 41-60 years, Obesity (BMI >25) Other Risk Factors: No Thrombosis Risk Factor Assessment Total Risk Factor Score: 2 Thrombosis Risk Factor Assessment Level: Low Risk
[2022-01-07] MEDS ORDERED: NALOXONE 0.4 MG/ML 10 ML VIAL IVP PRN (08:36)
--- NOTE | 2022-01-07 10:32 | P.CRDCN ---
History of Present Illness History of present illness: HISTORY OF PRESENTING ILLNESS Patient's pleasant 51-year-old female with a history of previous tobacco abuse since quit, prior ischemic cardiomyopathy with EF 30-35%, CAD with previous ID in 2012 with stenting of the LAD and repeat stenting of LAD in 2015 in 2018 as well as left ventricular thrombus for which she was briefly treated with Coumadin. Unfortunately she had lost her insurance and has not been following up and has only been able to afford a baby aspirin. She has not been taking any medications. She has noted recently having chest heaviness and pain which lasted for a few hours. Additionally she was feeling short of breath with minimal exertion and had been having increased lower extremity edema. She was seen in emergency department and pain eased up on its own and patient was given 4 baby aspirin and started on a heparin drip. She denies any recurrent chest pain however is still having dyspnea with walking in the bathroom. Blood work shows white blood cell count 10.4, hemoglobin 12.7, BUN 19, creatinine 0.6, troponin negative 2, proBNP 455. She denies any orthopnea. Her trace lower extremity edema has somewhat improved. REVIEW OF SYSTEMS At the time of my exam: CONSTITUTIONAL: Denies fever or chills. CARDIOVASCULAR: +chest pain, +shortness of breath, no orthopnea, PND or palpitations. RESPIRATORY: Denies cough. GASTROINTESTINAL: Denies abdominal pain, diarrhea, constipation, nausea or vomiting. MUSCULOSKELETAL: Denies myalgias. NEUROLOGIC: Denies numbness, tingling or weakness. ENDOCRINE: Denies fatigue, weight change, polydipsia or polyurina. GENITOURINARY: Denies burning, hematuria or urgency with micturation. HEMATOLOGIC: Denies history of anemia or bleeding. PHYSICAL EXAMINATION Vital signs reviewed. CONSTITUTIONAL: No apparent distress. HEENT: Head is normocephalic. Pupils are equal, round. Sclerae anicteric. Mucous membranes of the mouth are moist. No JVD. No carotid bruit. CHEST EXAMINATION: Lungs are clear to auscultation. No chest wall tenderness is noted on palpation or with deep breathing. HEART EXAMINATION: Regular rate and rhythm. S1, S2 heard. No murmurs, gallops or rub. ABDOMEN: Soft, nontender. Positive bowel sounds. EXTREMITIES: 2+ peripheral pulses, no lower extremity edema and no calf tenderness. NEUROLOGIC EXAMINATION: Patient is awake, alert and oriented x3. ASSESSMENT 1. Atypical chest pain somewhat different than her prior angina, troponin negative 2. Rule out unstable angina 2. Acute on chronic systolic heart failure 3. Dyspnea on exertion likely related to heart failure 4. Prior ischemic cardiomyopathy EF 30-35% 5. Previous history of LV thrombus status post anticoagulation 6. Medical noncompliance, unable to afford medications and follow up 7. Previous tobacco abuse since quit 8. Lower extremity edema likely main component of heart failure +/- venous insufficiency 9. CAD with prior history of multiple stents to the mid LAD PLAN Patient with chest pain which is somewhat different than her prior angina and may be related to heart failure however rule out unstable angina. Additionally having heart failure symptoms with increased dyspnea on exertion and increased lower extremity edema. ProBNP not overly elevated however does appear to be mildly volume overloaded. Place patient on heart failure regimen, IV diuretics however likely will only need 1 or 2 days. Low-salt diet. Check 2-D echo. Check Lexiscan stress test and further recommendations after testing. Past Medical History Past Medical History: Coronary Artery Disease (CAD), Myocardial Infarction (ID) Additional Past Medical History / Comment(s): pt states she had a blood clot in left ventricle and was on coumadin for a period of time and now is off coumadin. Last Myocardial Infarction Date:: April 2017 History of Any Multi-Drug Resistant Organisms: None Reported Past Surgical History: Section, Heart Catheterization With Stent Past Anesthesia/Blood Transfusion Reactions: No Reported Reaction Additional Past Anesthesia/Blood Transfusion Reaction / Comment(s): pt states she has never had a blood transfusion. Date of Last Stent Placement:: Apr 2017 Past Psychological History: No Psychological Hx Reported Smoking Status: Former smoker Past Alcohol Use History: None Reported Past Drug Use History: None Reported - Past Family History Mother Family Medical History: No Reported History Additional Family Medical History / Comment(s): pt does not know. pt is adopted. Father Family Medical History: No Reported History Additional Family Medical History / Comment(s): pt does not know. pt is adopted. Medications and Allergies Home Medications Medication Instructions Recorded Confirmed Type Aspirin 81 mg PO DAILY chew 02/13/19 02/22/21 Rx Sulfamethox-Tmp 800-160Mg [Bactrim 1 tab PO Q12HR #28 tab 02/22/21 Rx DS 800-160 mg] Acetaminophen [Tylenol] 500 mg PO Q4-6H PRN #24 tab 08/10/21 Rx Ibuprofen [Motrin] 600 mg PO Q8HR PRN #30 tab 08/10/21 Rx Allergies Allergy/AdvReac Type Severity Reaction Status Date / Time cephalexin [From Keflex] Allergy Rash/Hives Verified 01/06/22 20:47 isosorbide [From Imdur] Allergy Anaphylaxis Verified 01/06/22 20:47 Physical Exam Vitals: Vital Signs Temp Pulse Pulse Resp BP BP Pulse Ox 01/07/22 07:30 98.2 F 66 14 155/79 96 01/07/22 07:21 20 01/07/22 04:00 97.9 F 71 20 165/68 96 01/07/22 00:43 65 16 149/76 100 01/06/22 23:23 72 16 143/86 99 01/06/22 22:00 58 L 16 148/87 100 01/06/22 20:43 97.9 F 72 18 176/89 98 Intake and Output 01/06/22 01/07/22 01/07/22 22:59 06:59 14:59 Other: Weight 90.718 kg 90.718 kg Results 01/06/22 21:30 01/06/22 21:30 Cardiac Enzymes 01/06/22 01/06/22 01/07/22 Range/Units 21:30 21:30 00:35 AST 31 (14-36) U/L Troponin I <0.012 <0.012 (0.000-0.034) ng/mL Coagulation 01/06/22 01/07/22 Range/Units 21:30 04:07 PT 9.9 10.4 (9.0-12.0) sec APTT 24.3 24.6 (22.0-30.0) sec CBC 01/06/22 Range/Units 21:30 WBC 10.4 (3.8-10.6) k/uL RBC 4.31 (3.80-5.40) m/uL Hgb 12.7 (11.4-16.0) gm/dL Hct 39.5 (34.0-46.0) % Plt Count 271 (150-450) k/uL Comprehensive Metabolic Panel 01/06/22 Range/Units 21:30 Sodium 138 (137-145) mmol/L Potassium 4.7 (3.5-5.1) mmol/L Chloride 104 (98-107) mmol/L Carbon Dioxide 24 (22-30) mmol/L BUN 19 H (7-17) mg/dL Creatinine 0.62 (0.52-1.04) mg/dL Glucose 91 (74-99) mg/dL Calcium 8.4 (8.4-10.2) mg/dL AST 31 (14-36) U/L ALT 18 (4-34) U/L Alkaline Phosphatase 38 (38-126) U/L Total Protein 6.5 (6.3-8.2) g/dL Albumin 3.9 (3.5-5.0) g/dL Current Medications Generic Name Dose Route Start Last Admin Trade Name Freq PRN Reason Stop Dose Admin Acetaminophen 650 mg 01/06/22 23:13 Acetaminophen Tab 325 Mg Tab PO Q6HR PRN Mild Pain or Fever > 100.5 Aspirin 81 mg 01/07/22 09:00 Aspirin 81 Mg PO DAILY [facility] Atorvastatin Calcium 80 mg 01/07/22 09:00 Atorvastatin 80 Mg Tab PO DAILY [facility] Heparin Sodium (Porcine) 0 unit 01/07/22 02:45 Heparin Sodium 1,000 Un/Ml (10ml Vl) IV PER PROTOCOL PRN Low PTT Protocol Heparin Sodium/Sodium Chloride 250 mls @ 10 mls/hr 01/07/22 02:45 01/07/22 06:04 25,000 unit/ Sodium Chloride IV 11.0232 units/kg/hr .Q24H JASMIN 10 mls/hr Administration Protocol 11.0232 UNITS/KG/HR Naloxone HCl 0.2 mg 01/06/22 23:13 Naloxone 0.4 Mg/Ml 1 Ml Vial IV Q2M PRN Opioid Reversal Nitroglycerin 0.4 mg 01/06/22 21:11 Nitroglycerin Sl Tabs 0.4 Mg Tab SUBLINGUAL Q5M PRN Chest Pain Intake and Output 01/06/22 01/07/22 01/07/22 22:59 06:59 14:59 Other: Weight 90.718 kg 90.718 kg Patient Weight 01/08/22 06:59 Weight 90.718 kg 01/06/22 21:30 01/06/22 21:30
[2022-01-07] MEDS ORDERED: FUROSEMIDE 10 MG/ML 4 ML VIAL IV SCH (10:45)
[2022-01-07] MEDS: ASPIRIN 81 MG PO SCH (11:06)
[2022-01-07] MEDS: ATORVASTATIN 80 MG TAB PO SCH (11:07)
[2022-01-07] MEDS: METOPROLOL SUCCINATE (ER) 25 MG TAB.ER.24H PO SCH (11:07)
[2022-01-07] MEDS: LOSARTAN 25 MG TAB PO SCH (11:07)
[2022-01-07] MEDS: HEPARIN SODIUM 1,000 UN/ML (10ML VL) IV PRN (12:01)
[2022-01-07 16:15] LABS: LDL Cholesterol,Calculated 99.7 mg/dL (0.0-131.0)
[2022-01-08] MEDS: HEPARIN SODIUM 1,000 UN/ML (10ML VL) IV PRN (00:14)
[2022-01-08] MEDS: HEPARIN SOD,PORK IN 0.45% NACL 25,000 UNIT in 0.45% NACL 1 250ML.BAG IV SCH (04:09)
[2022-01-08 05:27] LABS: Partial Thromboplastin Time 59.6 sec (22.0-30.0); Prothrombin Time 10.4 sec (9.0-12.0)
[2022-01-08] MEDS ORDERED: CAFFEINE CITRATE 60 MG/3 ML VIAL IV PRN (07:48)
[2022-01-08] MEDS ORDERED: AMINOPHYLLINE 500 MG/20 ML VIAL IV PRN (07:48)
[2022-01-08] MEDS ORDERED: REGADENOSON 0.4 MG/5 ML SYRINGE IV PRN (07:48)
[2022-01-08 09:37] LABS: HCT 38.6 % (37.2-46.3); HGB 12.1 g/dL (12.0-15.0); MCH 29.4 pg (27.0-32.0); MCHC 31.3 g/dL (32.0-37.0); MCV 93.7 fL (80.0-97.0); Mean Platelet Volume 10.8 fL (9.5-12.2); NRBC Per 100 WBC 0 /100 WBCS (0.0-0.0); Platelet Count 272 X 10*3/uL (140-440); RBC 4.12 X 10*6/uL (4.10-5.20); WBC 11.52 X 10*3/uL (4.50-10.00)
--- NOTE | 2022-01-08 09:37 | CA ---
Transthoracic Echo Report Name: Era Aggarwal Age: 51 Gender: F : 1970 Exam Date: 01/08/2022 07:38 Exam Location: [place] Echo Ht (in): 64 Wt (lb): 200 Ordering Physician: Neal Bolaños Attending/Referring Phys: Financial Planner Charlotte Weeks RDCS Procedure CPT: Indications: Chest Pain Cardiac Hx: Technical Quality: Good Contrast 1: Total Dose (mL): Contrast 2: Total Dose (mL): MEASUREMENTS (Male / Female) Normal Values 2D ECHO LV Diastolic Diameter PLAX 5.7 cm 4.2 - 5.9 / 3.9 - 5.3 cm LV Systolic Diameter PLAX 4.3 cm IVS Diastolic Thickness 1.1 cm 0.6 - 1.0 / 0.6 - 0.9 cm LVPW Diastolic Thickness 1.1 cm 0.6 - 1.0 / 0.6 - 0.9 cm LV Relative Wall Thickness 0.4 RV Internal Dim ED PLAX 3.3 cm LA Systolic Diameter LX 4.2 cm 3.0 - 4.0 / 2.7 - 3.8 cm LA Volume 64.3 cm??? 18 - 58 / 22 - 52 cm??? M-MODE Aortic Root Diameter MM 3.0 cm MV E Point Septal Separation 1.3 cm AV Cusp Separation MM 2.1 cm DOPPLER AV Peak Velocity 150.4 cm/s AV Peak Gradient 9.1 mmHg MV Area PHT 3.0 cm??? Mitral E Point Velocity 98.9 cm/s Mitral A Point Velocity 92.5 cm/s Mitral E to A Ratio 1.1 MV Deceleration Time 255.2 ms MV E' Velocity 6.4 cm/s Mitral E to MV E' Ratio 15.4 FINDINGS Left Ventricle Mildly increased septal wall thickness. Mildly increased posterior wall thickness. Mildly increased left ventricular diastolic diameter. Left ventricular ejection fraction is estimated at 40-45 %. Apical septum hypokinesis. Apical inferior hypokinesis. Right Ventricle Mild right ventricular dilatation. Unable to estimate the right ventricular systolic pressure no TR Right Atrium Normal right atrial size. Left Atrium Mildly increased left atrial diameter. Moderately increased left atrial volume. Mildly increased left atrial area. No evidence for an atrial septal defect. Mitral Valve Structurally normal mitral valve. No mitral stenosis, regurgitation or prolapse. Aortic Valve Trileaflet aortic valve. No aortic valve stenosis or regurgitation. Tricuspid Valve Structurally normal tricuspid valve. Pulmonic Valve Trace to mild pulmonic regurgitation. Pericardium Normal pericardium. No pericardial effusion. Aorta Normal size aortic root and proximal ascending aorta. CONCLUSIONS Reduced LV systolic function ejection fraction 44% with an apical aneurysm Previewed by: Dr. Ab Mckeon MD (Electronically Signed) Final Date: 08 January 2022 09:36
--- NOTE | 2022-01-08 09:50 | P.PN ---
Subjective Progress Note Date: 01/08/22 HISTORY OF PRESENT ILLNESS: Patient's pleasant 51-year-old female with a history of previous tobacco abuse since quit, prior ischemic cardiomyopathy with EF 30-35%, CAD with previous ME in 2011 with stenting of the LAD and repeat stenting of LAD in 2015 in 2018 as well as left ventricular thrombus for which she was briefly treated with Coumadin. Unfortunately she had lost her insurance and has not been following up and has only been able to afford a baby aspirin. She has not been taking any medications. She has noted recently having chest heaviness and pain which lasted for a few hours. Additionally she was feeling short of breath with minimal exertion and had been having increased lower extremity edema. She was seen in emergency department and pain eased up on its own and patient was given 4 baby aspirin and started on a heparin drip. She denies any recurrent chest pain however is still having dyspnea with walking in the bathroom. Blood work shows white blood cell count 10.4, hemoglobin 12.7, BUN 19, creatinine 0.6, troponin negative 2, proBNP 455. She denies any orthopnea. Her trace lower extremity edema has somewhat improved. 01/08/2022 Patient examined this morning at the bedside. Patient denies any further episodes of chest pain or pressure. She denies any shortness of breath. She remains on IV heparin and IV Lasix. Vital signs are stable. Echocardiogram completed revealed ejection fraction 40-45%, apical septal hypokinesis, apical inferior hypokinesis. PHYSICAL EXAM: VITAL SIGNS: Reviewed. GENERAL: Well-developed in no acute distress. NECK: Supple. No JVD or thyromegaly LUNGS: Respirations even and unlabored. Lungs essentially clear to auscultation bilaterally. HEART: Regular rate and rhythm. S1 and S2 heard. EXTREMITIES: Normal range of motion. No clubbing or cyanosis. Peripheral pulses intact. No lower extremity edema ASSESSMENT: 1. Atypical chest pain somewhat different than her prior angina, troponin negative 3. 2. Acute on chronic systolic heart failure 3. Dyspnea on exertion likely related to heart failure 4. Prior ischemic cardiomyopathy EF 30-35% 5. Previous history of LV thrombus status post anticoagulation 6. Medical noncompliance, unable to afford medications and follow up 7. Previous tobacco abuse since quit 8. Lower extremity edema likely main component of heart failure +/- venous insufficiency 9. CAD with prior history of multiple stents to the mid LAD PLAN: Continue current cardiac medications Discontinue IV Lasix. Begin oral Lasix 40 mg daily Discontinue IV heparin Patient to undergo Lexiscan stress test today to assess for ischemia If negative, the patient may be discharged home from a cardiac standpoint Nurse practitioner note has been reviewed by physician. Signing provider agrees with the documented findings, assessment, and plan of care. Objective - Vital Signs Vital signs: Vital Signs Temp 98 F 01/08/22 07:00 Pulse 49 L 01/08/22 07:00 Resp 15 01/08/22 07:00 BP 147/84 01/08/22 07:00 Pulse Ox 96 01/08/22 07:00 FiO2 Intake & Output 01/07/22 01/08/22 01/08/22 18:59 06:59 18:59 Intake Total 417 224.276 Balance 417 224.276 Weight 90.718 kg Intake: Intake, IV Titration 59 224.276 Amount Heparin Sod,Pork in 0.45% 59 224.276 NaCl 25,000 unit In 0.45 % NaCl 1 250ml.bag @ 11. 0232 UNITS/KG/HR 10 mls/ hr IV .Q24H JASMIN Rx#: [id number] Oral 358 Other: # Voids 3 2 - Labs CBC & Chem 7: 01/08/22 04:30 01/06/22 21:30 Labs: Abnormal Lab Results - Last 24 Hours (Table) 01/07/22 01/07/22 01/07/22 Range/Units 10:40 10:40 21:40 WBC (4.50-10.00) X 10*3/uL MCHC (32.0-37.0) g/dL APTT 34.0 H 30.7 H (22.0-30.0) sec Triglycerides 198.00 H (0.00-149.00) mg/dL HDL Cholesterol 38.70 L (40.00-60.00) mg/dL 01/08/22 01/08/22 Range/Units 04:30 04:30 WBC 11.52 H (4.50-10.00) X 10*3/uL MCHC 31.3 L (32.0-37.0) g/dL APTT 59.6 H (22.0-30.0) sec Triglycerides (0.00-149.00) mg/dL HDL Cholesterol (40.00-60.00) mg/dL
[2022-01-08 10:15] LABS: Basophils # (A) 0.08 X 10*3/uL (0.00-0.10); Basophils % (A) 0.7 %; Eosinophils # (A) 0.49 X 10*3/uL (0.04-0.35); Eosinophils % (A) 4.3 %; Immature Grans, Automated 0.2 %; Lymphocytes # (A) 4.66 X 10*3/uL (0.90-5.00); Lymphocytes % (A) 40.5 %; Monocytes # (A) 0.81 X 10*3/uL (0.20-1.00); Neutrophils # (A) 5.46 X 10*3/uL (1.80-7.70); Neutrophils % (A) 47.3 %
[2022-01-08 10:16] LABS: RBC Morphology NORMAL
[2022-01-08] MEDS: ATORVASTATIN 80 MG TAB PO SCH (11:04)
[2022-01-08] MEDS: LOSARTAN 25 MG TAB PO SCH (11:04)
[2022-01-08] MEDS: METOPROLOL SUCCINATE (ER) 25 MG TAB.ER.24H PO SCH (11:05)
[2022-01-08] MEDS: FUROSEMIDE 40 MG TAB PO SCH (11:05)
[2022-01-08] MEDS: ASPIRIN 81 MG PO SCH (11:05)
--- NOTE | 2022-01-08 12:42 | NM ---
EXAMINATION TYPE: NM stress lexiscan cardiolite DATE OF EXAM: 01/08/2022 COMPARISON: NONE HISTORY: carl pain TECHNIQUE: After the intravenous administration of 10.5 mCi Tc 99m Sestamibi - Cardiolite resting SP ECT images acquired 45 minutes post injection. The patient received 0.4mg Lexiscan, 26.0 mCi Tc 99m Sestamibi - Stress images obtained [address] injection FINDINGS: Review of stress and rest SPECT images large area of fixed perfusion defect involving the apex and in ferior wall and lateral wall of the myocardium. There is corresponding wall motion abnormality. There appears to be areas of stress-induced reversible ischemia involving the apex and lateral wall. With an estimated left ventricular ejection fraction of 45 %. IMPRESSION: 1. Large area of remote infarction with suspected areas of stress-induced. Reversible ischemia involv ing the apex and lateral myocardium. Correlate clinically. 2. Ejection fraction of only 45%
[2022-01-08] MEDS ORDERED: ALPRAZolam 0.5 MG TAB PO PRN (13:03)
[2022-01-08] MEDS ORDERED: ALPRAZolam 0.25 MG TAB PO PRN (13:03)
[2022-01-08] MEDS ORDERED: NITROGLYCERIN SL TABS 0.4 MG TAB SUBLINGUAL PRN (13:03)
--- NOTE | 2022-01-08 15:43 | CA ---
Lexiscan Nuclear Stress Test Report Name: Era Aggarwal Exam Date: 01/08/2022 09:54 Exam Location: [place] Stress Ht (in): 64 Wt (lb): 200 BSA: 1.96 Ordering Phys: Sophie Ruose Referring Phys: CELESTINE TURNER,, Technologist: Raul Briceno Age: 51 Gender: F : 1970 Procedure CPT: Indications: Reflex order-Stress test ICD-10 Codes: Patient History: Medications: SEE CHART Meds past 24 hrs: Pretest Chest Pain: STRESS TEST Lexiscan Protocol Exercise Duration (min:sec): 02:[address] Depressions (mm): Angina Score: Ho Score: Resting HR (bpm): 62 Peak HR (bpm): 88 Resting BP (mmHg): 140 / 78 Peak BP (mmHg): 149 / 86 MPHR: 169 Target HR: 144 % MPHR: 52 METS: 1.0 Total Dose: Peak Dose: Atropine: Double Product: 22400 BP Response: Stress Termination: PROTOCOL COMPLETE Stress Symptoms: NO SYMPTOMS Stress Summary: ECG ANALYSIS Resting ECG: Stress ECG: CONCLUSIONS Baseline heart rate 62 beats a minute, Baseline blood pressure 140/78 mmHg Baseline EKG shows normal sinus rhythm with occasional PVCs Patient received Lexiscan infusion per protocol No ECG changes suggestive of ischemia No sustained or nonsustained arrhythmias Dr. Ab Mckeon MD (Electronically Signed) Final Date: 08 January 2022 15:43
--- NOTE | 2022-01-08 15:49 | P.PN ---
Subjective Progress Note Date: 01/08/22 Hospital course: Patient is a 51-year-old female with a past medical history of CAD with stent to LAD and history of reported restenosis of stent with need for replacement of stent, ischemic cardiomyopathy with previously known EF of 30-35%, hypertension, and history of ventricular thrombus. Patient reports she has been off of her medications as she lost her insurance and: No longer afford medication. Patient has states she has been taking a baby aspirin daily while she is trying to get insurance through Medicaid. She presented to the emergency department with the chief complaint of chest pain. Patient reports while lying on her couch at home she began having pain to her left anterior chest in which she describes as a heaviness and squeezing sensation. Patient reports pain felt as though someone was sitting on her chest and squeezing her heart. Patient reports in addition to this she has noticed some increased lower extremity edema and exertional shortness of breath. She denies having any dizziness, lightheadedness, palpitations, abdominal pain, nausea, vomiting, or experiencing any numbness/tingling/weakness in her extremities. She underwent full evaluation in the emergency department CBC, coags, and CMP were unremarkable. Troponin negative at less than 0.012. EKG showing sinus rhythm at 61 bpm with no noted T wave or ST abnormality showing no signs of acute ischemia. Chest x-ray negative for acute cardiopulmonary process. Patient was given aspirin 324 mg 1 dose and started on heparin infusion for treatment of unstable angina. She was admitted under our services with consultation to cardiology. Troponins were trended and negative at less than 0.0123 draws. Lipid profile revealing elevated triglycerides of 198 and a low HDL of 38.70. 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 She then underwent a Lexiscan stress test revealing a large area of remote infarction with suspected areas of stress-induced reversible ischemia involving the apex and lateral myocardium. Patient transferred from observation to inpatient at this time with plans to undergo a cardiac cath tomorrow morning. Physical exam: Patient seen and fully evaluated at bedside. Patient tearful and upset regarding need to stay in hospital an additional night to undergo cardiac cath tomorrow. Patient states that she does not like hospitals and does not want to be here. Patient educated on the importance of staying in the hospital and undergoing recommended cardiac catheterization tomorrow morning. At this time patient agreeable to stay. Patient to continue current medication regimen with aspirin, atorvastatin, Lasix, losartan, metoprolol, and when necessary nitro. Vital signs reviewed and stable. General: Nontoxic, no distress and appears stated age. Derm: Skin warm and dry, normal coloration for ethnicity. Head: Atraumatic, normocephalic and symmetric. Eyes: EOMs intact, no lid lag, and anicteric sclera Mouth: no lip lesions, mucus membranes moist Cardiovascular: regular rate and rhythm with normal S1S2, no murmur, positive posterior tibial pulses bilaterally, and cap refill < 2 seconds. Lungs: Respirations even, regular, and unlabored on room air. Lungs CTA bilaterally, no rhonchi, no rales, no wheezing, and no accessory muscle usage. Abdominal: soft, nontender to palpation, no guarding, no appreciable organomegaly Ext: ROM intact. No gross muscle atrophy, bilateral lower extremity edema, no contractures Neuro: Speech clear, face symmetrical and CN II-XII grossly intact with no noted focal neuro deficits Psych: Alert and oriented to person, place, time, and situation. Appropriate and pleasant affect. Assessment and Plan of Care: Chest pain, rule out acute coronary event Acute on chronic systolic heart failure with exertional dyspnea and bilateral lower extremity edema History of CAD with stent History of ischemic cardiomyopathy with previously known EF of 30-35% Hypertension History of ventricular thrombus -Cardiology following, plans to take patient for cardiac cath tomorrow morning. -Continue heparin infusion -Telemetry monitoring -Trend troponins -Lasix 40 mg IVP daily -Cardiac diet, NPO at midnight -Aspirin, atorvastatin, and metoprolol -Lipid profile with a.m. labs. 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 -Lexiscan stress test revealing a large area of remote infarction with suspected areas of stress-induced reversible ischemia involving the apex and lateral myocardium. Medication noncompliance -Social work consulted for assistance with insurance/medications upon discharge The patient is admitted with an anticipated less than 2 midnight stay for evaluation of chest pain, rule out unstable angina CODE STATUS: Full code DVT prophylaxis: Heparin Discussed with: Patient and RN Anticipated discharge date: 1-[address]: Home A total of 39 minutes was spent on the care of this complex patient more than 5 0% of the time was spent in counseling and care coordination. Objective - Vital Signs Vital signs: Vital Signs Temp 98 F 01/08/22 07:00 Pulse 49 L 01/08/22 07:00 Resp 15 01/08/22 07:00 BP 147/84 01/08/22 07:00 Pulse Ox 96 01/08/22 07:00 FiO2 Intake & Output 01/07/22 01/08/22 01/08/22 18:59 06:59 18:59 Intake Total 417 224.276 Balance 417 224.276 Weight 90.718 kg Intake: Intake, IV Titration 59 224.276 Amount Heparin Sod,Pork in 0.45% 59 224.276 NaCl 25,000 unit In 0.45 % NaCl 1 250ml.bag @ 11. 0232 UNITS/KG/HR 10 mls/ hr IV .Q24H JASMIN Rx#: [id number] Oral 358 Other: # Voids 3 2 - Labs CBC & Chem 7: 01/08/22 04:30 01/06/22 21:30 Labs: Abnormal Lab Results - Last 24 Hours (Table) 01/07/22 01/07/22 01/07/22 Range/Units 10:40 10:40 21:40 APTT 34.0 H 30.7 H (22.0-30.0) sec Triglycerides 198.00 H (0.00-149.00) mg/dL HDL Cholesterol 38.70 L (40.00-60.00) mg/dL 01/08/22 Range/Units 04:30 APTT 59.6 H (22.0-30.0) sec Triglycerides (0.00-149.00) mg/dL HDL Cholesterol (40.00-60.00) mg/dL
[2022-01-08] MEDS: SODIUM CHLORIDE 0.9% 1,000 ML in EMPTY BAG 1 BAG IV SCH (23:21)
[2022-01-09] MEDS ORDERED: ATORVASTATIN 80 MG TAB PO ONE (05:00)
[2022-01-09] MEDS ORDERED: ASPIRIN 325 MG TAB PO ONE (05:00)
[2022-01-09 05:01] LABS: Glucose,Whole Blood 113 mg/dL (70-110)
[2022-01-09] MEDS ORDERED: HEPARIN SODIUM,PORCINE 2,500 UNIT in SODIUM CHLORIDE 0.9% 250 ML IRRIGATION PRN (07:00)
[2022-01-09] MEDS ORDERED: HEPARIN SODIUM,PORCINE 10,000 UNIT in SODIUM CHLORIDE 0.9% 1,000 ML IRRIGATION PRN (07:00)
[2022-01-09] MEDS: ASPIRIN 81 MG PO SCH (08:49)
[2022-01-09] MEDS: METOPROLOL SUCCINATE (ER) 25 MG TAB.ER.24H PO SCH (08:49)
[2022-01-09] MEDS: ATORVASTATIN 80 MG TAB PO SCH (08:49)
[2022-01-09] MEDS: LOSARTAN 25 MG TAB PO SCH (08:49)
[2022-01-09] MEDS: FUROSEMIDE 40 MG TAB PO SCH (08:49)
[2022-01-09] MEDS ORDERED: VERAPAMIL 2.5 MG/ML 2 ML AMP ONE (11:56)
[2022-01-09] MEDS ORDERED: HEPARIN SODIUM 1,000 UN/ML (10ML VL) ONE (11:57)
[2022-01-09] MEDS ORDERED: fentaNYL (PF) 50 MCG/ML 2 ML AMP ONE (11:57)
[2022-01-09] MEDS ORDERED: fentaNYL (PF) 50 MCG/ML 2 ML AMP IV ONE (12:18)
[2022-01-09] MEDS ORDERED: SODIUM CHLORIDE 0.9% 1,000 ML IV ONE (12:18)
[2022-01-09] MEDS ORDERED: MIDAZOLAM 2 MG/2 ML VIAL IV ONE (12:18)
[2022-01-09] MEDS ORDERED: LIDOCAINE 1% INJ 10MG/ML (30 ML VIAL-PF) IV ONE (12:21)
[2022-01-09] MEDS ORDERED: VERAPAMIL 2.5 MG/ML 2 ML AMP INTRAARTER ONE (12:24)
[2022-01-09] MEDS ORDERED: HEPARIN SODIUM 1,000 UN/ML (10ML VL) IVP ONE (12:25)
[2022-01-09] MEDS ORDERED: IOPAMIDOL-370 125ML BTL INJ ONE (12:29)
--- NOTE | 2022-01-09 12:32 | P.CARDCATH ---
Description of Procedure: PROCEDURES PERFORMED: Left heart catheterization, bilateral coronary angiography INDICATION: Abnormal stress test, history of CAD CONSENT:I have discussed the risks, benefits and alternative therapies for the above-mentioned procedure and for both sedation/analgesia as well as necessary blood product administration, if indicated, as they pertain to this patient. The patient has indicated understanding and acceptance of the risks and procedures discussed. PROCEDURE: After the risks, benefits and alternatives of the above mentioned procedure explained in detail with the patient, informed consent was obtained. Patient was taken to the catheterization lab and prepped and draped in usual fashion. 1% lidocaine was used to anesthetize the right radial artery. A 6- Libyan sheath was placed in the right radial artery using modified Seldinger technique. Left coronary angiography was performed with a 5-Libyan JL 3.5 catheter and right coronary angiography was performed with a 5-Libyan JR5 catheter in various views. A 5-Libyan FR5 catheter was inserted into the left ventricle and pressure measurements were obtained. The right radial sheath was removed and a TR band was placed with hemostasis achieved. The patient tolerated the procedure well. Patient was transported back to the post catheterization holding area in stable condition. Conscious Sedation: Patient was monitored under the direct supervision of vision of myself for conscious sedation using Versed and fentanyl for a total duration of 10 minutes HEMODYNAMICS: Aorta: 142/78 LV: 141/4, LVDP 13 SELECTIVE CORONARY ARTERIOGRAPHY: LEFT MAIN: The left main is a large caliber vessel which bifurcates into the LAD and circumflex. There is no significant stenosis. LEFT ANTERIOR DESCENDING CORONARY ARTERY: LAD is a large caliber vessel which wraps around to the apex. There is a mid LAD stent which is patent with mild 20% in-stent stenosis. Otherwise the LAD appears normal LEFT CIRCUMFLEX CORONARY ARTERY: Left circumflex is a moderate caliber vessel without significant stenosis. RIGHT CORONARY ARTERY: The right coronary artery is a large caliber vessel which gives off a PDA and PLV branch and is the dominant vessel. There is no significant stenosis. FINAL IMPRESSION: 1. Relatively normal coronary arteries other than mid LAD stent with mild 20% in-stent stenosis. 2. Normal left sided filling pressures PLAN: 1. Aggressive risk factor modification per most recent ACC/AHA guidelines. 2. Follow-up in the office in 1-2 weeks.
[2022-01-09] MEDS: SODIUM CHLORIDE 0.9% 1,000 ML in EMPTY BAG 1 BAG IV SCH (12:46)
[2022-01-09 13:50] VITALS: RESP 15; TEMP 98.2
[2022-01-09 16:55] VITALS: BP 123/59; PULSE 80
--- NOTE | 2022-01-11 15:41 | P.DS ---
Providers Date of admission: 01/08/22 15:10 Expected date of discharge: 01/09/22 Attending physician: Laith Lugo Consults: 01/06/22 23:13 Consult Physician Routine Consulting Provider: Jonathan Branch Consult Reason/Comments: chest pain Do you want consulting provider notified?: Yes, Notify in am Primary care physician: Hector Ware Hospital Course: Final diagnosis Chest pain, ruled out ACS Palmer acute on chronic systolic heart failure with exertional dyspnea and bilateral lower extremity edema History of coronary artery disease with stenting History of ischemic cardiomyopathy with a previously known EF of 30-35% Hypertension History of ventricular thrombus Medication noncompliance DVT prophylaxis Full code Discharge disposition Patient is being discharged in a stable condition with guarded prognosis to home. Patient will follow-up with Dr. Ware in the outpatient setting upon discharge. Patient is to hold cardiology as scheduled. Patient is to continue current medications as described below. Total time taken is greater than 35 minutes. Hospital course This is a 51-year-old female who was recently admitted with chest pain and abnormal stress test underwent cardiac catheterization which was clear recommending medical management and outpatient follow-up with primary care provider along with cardiology. Patient has recently lost her insurance and unable to afford her medications and had not been taking her medications. She reports to feeling much better and anxious to go home. Currently no reports of chest pain, shortness of breath, or palpitations. Patient is afebrile. No reports of nausea or vomiting and patient is tolerating diet. Patient will be discharged home today. Physical exam: Gen: This is a 51-year-old female alert and oriented 3, well-developed, well- nourished, obese. HEENT: Head is atraumatic, normocephalic. Pupils equal, round. Sclerae is anicteric. NECK: Supple. No JVD. No lymphadenopathy. No thyromegaly. LUNGS: Clear to auscultation. No wheezes or rhonchi. No intercostal retractions. HEART: Regular rate and rhythm. No murmur. ABDOMEN: Soft. Bowel sounds are present. No masses. No tenderness. EXTREMITIES: No pedal edema. No calf tenderness. NEUROLOGICAL: Patient is awake, alert and oriented x3. Cranial nerves 2 through 12 are grossly intact. Please refer to medication reconciliation sheet for a list of medications. The impression and plan of care has been dictated by Saray Boudreaux, Nurse Practitioner as directed. MD Jeremi I have performed a history and examination and MDM of this patient, discussed the same with the dictator, and agree with the dictator's assessment and plan as written ,documented as a scribe. Based on total visit time, I have performed more than 50% of the visit. Patient Condition at Discharge: Good Plan - Discharge Summary Discharge Rx Participant: Yes New Discharge Prescriptions: New Losartan [Cozaar] 25 mg PO DAILY #30 tab Furosemide [Lasix] 40 mg PO DAILY #30 tab Metoprolol Succinate (ER) [Toprol XL] 25 mg PO DAILY #30 tab Atorvastatin [Lipitor] 80 mg PO DAILY #30 tab Nitroglycerin Sl Tabs [Nitrostat] 0.4 mg SUBLINGUAL Q5M PRN #30 tab PRN Reason: Chest Pain Continue Aspirin 81 mg PO DAILY chew Discharge Medication List Aspirin 81 mg PO DAILY chew 02/13/19 [Rx] Atorvastatin [Lipitor] 80 mg PO DAILY #30 tab 01/09/22 [Rx] Furosemide [Lasix] 40 mg PO DAILY #30 tab 01/09/22 [Rx] Losartan [Cozaar] 25 mg PO DAILY #30 tab 01/09/22 [Rx] Metoprolol Succinate (ER) [Toprol XL] 25 mg PO DAILY #30 tab 01/09/22 [Rx] Nitroglycerin Sl Tabs [Nitrostat] 0.4 mg SUBLINGUAL Q5M PRN #30 tab 01/09/22 [Rx] Follow up Appointment(s)/Referral(s): Hector Ware MD [Primary Care Provider] - 1-2 days Ryland Bhandari DO [STAFF PHYSICIAN] - 1 Week (Office will call with appointment time and date.) Patient Instructions/Handouts: *Surgery [facility] - After Heart Catheterization - Sanitation Manager Instructions Activity/Diet/Wound Care/Special Instructions: Activity limited until follow-up Follow-up with primary care provider on discharge Follow-up with cardiology outpatient as scheduled Continue taking medications as prescribed Continue heart healthy diet Discharge Disposition: HOME SELF-CARE
== END 2022-01-09 18:00 | disposition home or self-care (01) | DRG 286 ==
LOC: EC 20:36 → 6NMEDSUR 21:24 → OBSVTOIN 01-08 15:10
PROVIDERS: ADMIT Internal Medicine; ATTEND Internal Medicine
PROC: 4A023N7 Measurement of Cardiac Sampling and Pressure, Left Heart, Percutaneous Approach (ICD-10-PCS; principal; 2022-01-08)
PROC: B2111ZZ Fluoroscopy of Multiple Coronary Arteries using Low Osmolar Contrast (ICD-10-PCS; 2022-01-08)
DX: R07.89 Other chest pain (principal); I50.23 Acute on chronic systolic (congestive) heart failure; I11.0 Hypertensive heart disease with heart failure; I25.10 Atherosclerotic heart disease of native coronary artery without angina pectoris; E78.1 Pure hyperglyceridemia; Z87.891 Personal history of nicotine dependence; I37.1 Nonrheumatic pulmonary valve insufficiency; Z71.6 Tobacco abuse counseling; I25.2 Old myocardial infarction; I25.5 Ischemic cardiomyopathy; I87.2 Venous insufficiency (chronic) (peripheral); Z79.82 Long term (current) use of aspirin; Z91.14 Patient's other noncompliance with medication regimen; Z91.19 Patient's noncompliance with other medical treatment and regimen; Z95.5 Presence of coronary angioplasty implant and graft; Z88.1 Allergy status to other antibiotic agents; Z88.8 Allergy status to other drugs, medicaments and biological substances
CPT/HCPCS: 36415; 71046; 78452; 80053; 80061; 83735; 83880; 84484; 85025; 85610; 85730; 93005; 93017; 93306; 93458; 96365; 96374; 99285

== ENCOUNTER 2022-01-14 10:11 | Observation (INO) | payer OTHER ==
--- NOTE | 2022-01-14 11:14 | ED ---
General Adult HPI - General Chief complaint: Skin/Abscess/Foreign Body Stated complaint: rt arm pain Time Seen by Provider: 01/14/22 10:19 Source: patient, RN notes reviewed, old records reviewed Mode of arrival: ambulatory Limitations: no limitations - History of Present Illness Initial comments: 51-year-old female with right wrist pain. Patient is 5 days status post heart cath. She states she's had previous heart cath but this was in the groin. She states uncertain if the pain she is experiencing is normal. She does report pain in the right wrist to the mid forearm and some numbness into her fingers. She is able to move her fingers. His been no fever. No erythema. No palpable mass according to the patient. - Related Data Home Medications Medication Instructions Recorded Confirmed Nitroglycerin Sl Tabs [Nitrostat] 0.4 mg SL Q5M PRN 01/14/22 01/14/22 Previous Rx's Medication Instructions Recorded Aspirin 81 mg PO DAILY chew 02/13/19 Atorvastatin [Lipitor] 80 mg PO DAILY #30 tab 01/09/22 Furosemide [Lasix] 40 mg PO DAILY #30 tab 01/09/22 Losartan [Cozaar] 25 mg PO DAILY #30 tab 01/09/22 Metoprolol Succinate (ER) [Toprol 25 mg PO DAILY #30 tab 01/09/22 XL] Allergies Allergy/AdvReac Type Severity Reaction Status Date / Time cephalexin [From Keflex] Allergy Rash/Hives Verified 01/14/22 12:20 isosorbide [From Imdur] Allergy Anaphylaxis Verified 01/14/22 12:20 Review of Systems ROS Statement: Those systems with pertinent positive or pertinent negative responses have been documented in the HPI. ROS Other: All systems not noted in ROS Statement are negative. Past Medical History Past Medical History: Coronary Artery Disease (CAD), Myocardial Infarction (CT) Additional Past Medical History / Comment(s): pt states she had a blood clot in left ventricle and was on coumadin for a period of time and now is off coumadin. Last Myocardial Infarction Date:: April 2017 History of Any Multi-Drug Resistant Organisms: None Reported Past Surgical History: Section, Heart Catheterization With Stent Past Anesthesia/Blood Transfusion Reactions: No Reported Reaction Additional Past Anesthesia/Blood Transfusion Reaction / Comment(s): pt states she has never had a blood transfusion. Date of Last Stent Placement:: Apr 2017 Past Psychological History: No Psychological Hx Reported Smoking Status: Former smoker Past Alcohol Use History: None Reported Past Drug Use History: None Reported - Past Family History Mother Family Medical History: No Reported History Additional Family Medical History / Comment(s): pt does not know. pt is adopted. Father Family Medical History: No Reported History Additional Family Medical History / Comment(s): pt does not know. pt is adopted. General Exam Limitations: no limitations General appearance: alert, in no apparent distress Head exam: Present: atraumatic, normocephalic Eye exam: Present: normal appearance, PERRL Neck exam: Present: normal inspection. Absent: tenderness, meningismus Respiratory exam: Present: normal lung sounds bilaterally. Absent: respiratory distress, wheezes Cardiovascular Exam: Present: regular rate, normal rhythm Extremities exam: Present: other (There is a right radial puncture site, no bleeding, no hematoma, no erythema, no thrill no bruit, normal 2+ radial pulse and ulnar pulse, normal cap refill in all 5 digits.) Course Vital Signs 01/14/22 10:13 Temperature 98.1 F Pulse Rate 90 Respiratory 18 Rate Blood Pressure 127/84 O2 Sat by Pulse 98 Oximetry Medical Decision Making - Medical Decision Making 51-year-old female with right wrist pain status post heart cath. There is no focal sign of pseudoaneurysm, no hematoma, radial pulses, 2+ ulnar pulses and normal cap refill in all digits. She has normal movement of the digits with some numbness into the thumb, and third and fourth digit. There is no signs of infection. I did perform ultrasound which was negative for DVT but doesn't show thrombus or internal debris within the radial artery. I discussed case with Dr. Branch and Dr. Quesada. The patient will be admitted on heparin. Dr. Batista will accept admission, lab testing pending Disposition Clinical Impression: Status post cardiac catheterization, Radial artery thrombosis, right Disposition: ADMITTED IP TO THIS HOSP Condition: Stable Is patient prescribed a controlled substance at d/c from ED?: No Referrals: Hector Ware MD [Primary Care Provider] - 1-2 days Time of Disposition: 12:27 Decision to Admit Reason: Admit from EC
--- NOTE | 2022-01-14 11:48 | US ---
EXAMINATION TYPE: US venous doppler duplex UE RT DATE OF EXAM: 01/14/2022 COMPARISON: NONE CLINICAL HISTORY: 51-year-old female pain. Pt states right arm pain since heart cath on radial artery approach SIDE PERFORMED: Right FINDINGS: Right Arm: Negative for DVT. Sports Trainer notes: Incidental finding of possible right radial artery oc clusion from right wrist to origin at brachial artery at the antecubital fossa IMPRESSION: 1. Internal echoes are noted within the right radial artery from the wrist to the antecubital fossa. Doppler also shows no internal color flow. Unable to exclude thrombosis/occlusion of the renal artery . 2. No evidence for DVT within the right upper extremity.
[2022-01-14] MEDS ORDERED: HEPARIN SODIUM 1,000 UN/ML (10ML VL) IV PRN (12:04)
[2022-01-14] MEDS ORDERED: HEPARIN SOD,PORK IN 0.45% NACL 25,000 UNIT in 0.45% NACL 1 250ML.BAG IV SCH (12:15)
[2022-01-14] MEDS ORDERED: HYDROmorphone 0.5 MG/0.5 ML SYRINGE IVP STA (12:15)
[2022-01-14] MEDS ORDERED: HYDROmorphone 0.5 MG/0.5 ML SYRINGE IVP PRN (12:20)
[2022-01-14] MEDS ORDERED: NALOXONE 0.4 MG/ML 1 ML VIAL IV PRN (12:20)
[2022-01-14] MEDS ORDERED: ONDANSETRON 4 MG/2 ML VIAL IVP STA (12:24)
[2022-01-14 12:27] LABS: INR 0.9 (<1.2); Prothrombin Time 9.9 sec (9.0-12.0)
[2022-01-14 12:29] LABS: ALT 22 U/L (4-34); AST 22 U/L (14-36); African American GFR (CKD) >90 (>60 ml/min/1.73 sqM); Albumin 4.5 g/dL (3.5-5.0); Alkaline Phosphatase 59 U/L (38-126); Anion Gap 10 mmol/L; Blood Urea Nitrogen 25 mg/dL (7-17); Calcium 8.7 mg/dL (8.4-10.2); Carbon Dioxide 27 mmol/L (22-30); Chloride 100 mmol/L (98-107); Glucose 103 mg/dL (74-99); Non-African American GFR(CKD) >90 (>60 ml/min/1.73 sqM); Potassium 4.3 mmol/L (3.5-5.1); Sodium 137 mmol/L (137-145); Total Bilirubin 0.5 mg/dL (0.2-1.3); Total Protein 7.3 g/dL (6.3-8.2)
[2022-01-14] MEDS: SODIUM CHLORIDE 0.9% 1,000 ML IV SCH ×2 (12:30→23:55)
[2022-01-14 12:31] LABS: HGB 14.1 gm/dL (11.4-16.0); MCH 29.3 pg (25.0-35.0); MCV 91.6 fL (80.0-100.0); Mean Platelet Volume 7.7; Platelet Count 320 k/uL (150-450); RDW 13.5 % (11.5-15.5); WBC 11.2 k/uL (3.8-10.6)
[2022-01-14 12:57] LABS: Basophils # (M) 0.11 k/uL (0-0.2); Eosinophils # (M) 0.56 k/uL (0-0.7); Lymphocytes # (M) 3.81 k/uL (1.0-4.8); Monocytes # (M) 1.12 k/uL (0-1.0); Neutrophils % (M) 50 %; Nucleated Red Blood Cells 0 /100 WBC (0-0); Total Cells Counted 100
[2022-01-14] MEDS: HYDROcodone/APAP 5-325MG 1 EACH TAB PO PRN (15:05)
--- NOTE | 2022-01-14 16:13 | P.HPIM ---
History of Present Illness H&P Date: 01/14/22 Chief Complaint: right arm pain 51-year-old female with right wrist pain. Patient is 5 days status post heart cath. She states she's had previous heart cath but this was in the groin. She states uncertain if the pain she is experiencing is normal. She does report pain in the right wrist to the mid forearm and some numbness into her fingers. She is able to move her fingers. His been no fever. No erythema. No palpable mass according to the patient. There is no focal sign of pseudoaneurysm, no hematoma, radial pulses, 2+ ulnar pulses and normal cap refill in all digits. She has normal movement of the digits with some numbness into the thumb, and third and fourth digit. There is no signs of infection. Venous ultrasound which was negative for DVT but doesn't show thrombus or internal debris within the radial artery. patient was discussed with Dr. Branch and Dr. Quesada. The patient will be admitted on heparin. Review of Systems REVIEW OF SYSTEMS: CONSTITUTIONAL: No fever, no malaise, no fatigue. HEENT: No recent visual problems or hearing problems. Denied any sore throat. CARDIOVASCULAR: No chest pain, orthopnea, PND, no palpitations, no syncope. PULMONARY: No shortness of breath, no cough, no hemoptysis. GASTROINTESTINAL: No diarrhea, no nausea, no vomiting, no abdominal pain. NEUROLOGICAL: No headaches, no weakness, no numbness. HEMATOLOGICAL: Denies any bleeding or petechiae. GENITOURINARY: Denies any burning micturition, frequency, or urgency. MUSCULOSKELETAL/RHEUMATOLOGICAL: Denies any joint pain, swelling, or any muscle pain. ENDOCRINE: Denies any polyuria or polydipsia. The rest of the 14-point review of systems is negative. Past Medical History Past Medical History: Coronary Artery Disease (CAD), Myocardial Infarction ([place]) Additional Past Medical History / Comment(s): pt states she had a blood clot in left ventricle and was on coumadin for a period of time and now is off coumadin. Last Myocardial Infarction Date:: April 2017 History of Any Multi-Drug Resistant Organisms: None Reported Past Surgical History: Section, Heart Catheterization With Stent Past Anesthesia/Blood Transfusion Reactions: No Reported Reaction Additional Past Anesthesia/Blood Transfusion Reaction / Comment(s): pt states she has never had a blood transfusion. Date of Last Stent Placement:: Apr 2017 Past Psychological History: No Psychological Hx Reported Smoking Status: Former smoker Past Alcohol Use History: None Reported Past Drug Use History: None Reported - Past Family History Mother Family Medical History: No Reported History Additional Family Medical History / Comment(s): pt does not know. pt is adopted. Father Family Medical History: No Reported History Additional Family Medical History / Comment(s): pt does not know. pt is adopted. Medications and Allergies Home Medications Medication Instructions Recorded Confirmed Type Aspirin 81 mg PO DAILY chew 02/13/19 01/14/22 Rx Atorvastatin [Lipitor] 80 mg PO DAILY #30 tab 01/09/22 01/14/22 Rx Furosemide [Lasix] 40 mg PO DAILY #30 tab 01/09/22 01/14/22 Rx Losartan [Cozaar] 25 mg PO DAILY #30 tab 01/09/22 01/14/22 Rx Metoprolol Succinate (ER) [Toprol 25 mg PO DAILY #30 tab 01/09/22 01/14/22 Rx XL] Nitroglycerin Sl Tabs [Nitrostat] 0.4 mg SL Q5M PRN 01/14/22 01/14/22 History Allergies Allergy/AdvReac Type Severity Reaction Status Date / Time cephalexin [From Keflex] Allergy Rash/Hives Verified 01/14/22 12:20 isosorbide [From Imdur] Allergy Anaphylaxis Verified 01/14/22 12:20 Physical Exam Vitals: Vital Signs Temp Pulse Resp BP Pulse Ox 01/14/22 12:26 62 18 115/66 94 L 01/14/22 10:13 98.1 F 90 18 127/84 98 Intake and Output 01/13/22 01/14/22 01/14/22 22:59 06:59 14:59 Other: Weight 90.718 kg General appearance: alert, in no apparent distress Head exam: Present: atraumatic, normocephalic Eye exam: Present: normal appearance, PERRL Neck exam: Present: normal inspection. Absent: tenderness, meningismus Respiratory exam: Present: normal lung sounds bilaterally. Absent: respiratory distress, wheezes Cardiovascular Exam: Present: regular rate, normal rhythm Extremities exam: Present: other (There is a right radial puncture site, no bleeding, no hematoma, no erythema, no thrill no bruit, normal 2+ radial pulse and ulnar pulse, normal cap refill in all 5 digits. Results CBC & Chem 7: 01/14/22 12:11 01/14/22 12:11 Labs: Abnormal Lab Results - Last 24 Hours (Table) 01/14/22 01/14/22 Range/Units 12:11 12:11 WBC 11.2 H (3.8-10.6) k/uL BUN 25 H (7-17) mg/dL Glucose 103 H (74-99) mg/dL Assessment and Plan Assessment: 1. Right radial artery thrombosis - Patient is status post cardiac catheterization 5 days ago; patient does have ulnar and radial pulses with normal capillary refill in all digits - patient has been placed on IV heparin; vascular surgery will evaluate in the morning and make recommendations 2. Recent cardiac catheterization; patient was admitted to the hospital with chest pain and abnormal stress test and underwent cardiac catheterization which was unremarkable and patient was recommended medical management and outpatient follow-up - We will continue with aspirin,metoprolol, losartan and Lipitor - cardiology is consulted 3. Hyperlipidemia; patient remains on Lipitor 80 mg by mouth daily at bedtime 4. Hypertension; Cozaar 25 mg daily; metoprolol 25 mg daily DVT prophylaxis; IV heparin CODE STATUS; full code
[2022-01-15 01:06] LABS: Partial Thromboplastin Time 74.6 sec (22.0-30.0); Prothrombin Time 10.5 sec (9.0-12.0)
[2022-01-15] MEDS: HYDROcodone/APAP 5-325MG 1 EACH TAB PO PRN (03:47)
[2022-01-15 04:01] VITALS: RESP 18
[2022-01-15 07:51] LABS: HCT 38.6 % (34.0-46.0); HGB 12.4 gm/dL (11.4-16.0); MCH 30.2 pg (25.0-35.0); MCHC 32.1 g/dL (31.0-37.0); MCV 94.1 fL (80.0-100.0); Mean Platelet Volume 8.1; Platelet Count 295 k/uL (150-450); RDW 13.9 % (11.5-15.5); WBC 9.8 k/uL (3.8-10.6)
[2022-01-15 07:54] LABS: African American GFR (CKD) >90 (>60 ml/min/1.73 sqM); Anion Gap 8 mmol/L; Blood Urea Nitrogen 21 mg/dL (7-17); Carbon Dioxide 27 mmol/L (22-30); Chloride 103 mmol/L (98-107); Glucose 103 mg/dL (74-99); Non-African American GFR(CKD) >90 (>60 ml/min/1.73 sqM); Potassium 4.6 mmol/L (3.5-5.1); Sodium 138 mmol/L (137-145)
[2022-01-15 08:02] LABS: Band Neutrophils % 1 %; Lymphocytes # (M) 4.02 k/uL (1.0-4.8); Metamyelocytes % 1 %; Monocytes # (M) 0.69 k/uL (0-1.0); Neutrophils % (M) 48 %; Nucleated Red Blood Cells 0 /100 WBC (0-0); Total Cells Counted 100
[2022-01-15] MEDS ORDERED: ATORVASTATIN 80 MG TAB PO SCH (09:00)
[2022-01-15] MEDS ORDERED: LOSARTAN 25 MG TAB PO SCH (09:00)
[2022-01-15] MEDS ORDERED: FUROSEMIDE 40 MG TAB PO SCH (09:00)
[2022-01-15] MEDS ORDERED: ASPIRIN 81 MG PO SCH (09:00)
[2022-01-15] MEDS ORDERED: METOPROLOL SUCCINATE (ER) 25 MG TAB.ER.24H PO SCH (09:00)
--- NOTE | 2022-01-15 09:12 | P.GSCN ---
History of Present Illness Consult date: 01/15/22 Reason for Consult: Right radial artery thrombosis Requesting physician: Brayan Jackson History of present illness: The pleasant 51-year-old female who presented to the emergency department yesterday complains of right upper extremity pain. Patient states she had pain and numbness and tingling from her right wrist of towards her shoulder. She underwent cardiac catheterization on 01/09/2022 with access from the right radial artery. Patient states directly after she had no problems with bleeding, pain was manageable. She was discharged home and over the last couple days pain began to worsen and she began getting numbness and tingling in her fingers. She came to the emergency department for further evaluation. She had a venous duplex reporting negative deep vein thrombosis however incidental finding of possible right radial artery occlusion from right wrist to origin at brachial artery at the antecubital fossa. Patient states pain has improved it is now more so from the elbow down still with some numbness and tingling in her fingers. She has full range of motion is able to move her fingers and use her hand. She's been afebrile, no shortness of breath, no chest pain. Vascular surgery was consulted for possible right radial artery occlusion. Review of Systems A 14 point review systems was completed all pertinent positives and negatives as stated in the HPI. Past Medical History Past Medical History: Coronary Artery Disease (CAD), Myocardial Infarction ([place]) Additional Past Medical History / Comment(s): pt states she had a blood clot in left ventricle and was on coumadin for a period of time and now is off coumadin. Last Myocardial Infarction Date:: April 2017 History of Any Multi-Drug Resistant Organisms: None Reported Past Surgical History: Section, Heart Catheterization With Stent Past Anesthesia/Blood Transfusion Reactions: No Reported Reaction Additional Past Anesthesia/Blood Transfusion Reaction / Comm: pt states she has never had a blood transfusion. Date of Last Stent Placement:: Apr 2017 Past Psychological History: No Psychological Hx Reported Smoking Status: Former smoker Past Alcohol Use History: None Reported Past Drug Use History: None Reported - Past Family History Mother Family Medical History: No Reported History Additional Family Medical History / Comment(s): pt does not know. pt is adopted. Father Family Medical History: No Reported History Additional Family Medical History / Comment(s): pt does not know. pt is adopted. Medications and Allergies Home Medications Medication Instructions Recorded Confirmed Type Aspirin 81 mg PO DAILY chew 02/13/19 01/14/22 Rx Atorvastatin [Lipitor] 80 mg PO DAILY #30 tab 01/09/22 01/14/22 Rx Furosemide [Lasix] 40 mg PO DAILY #30 tab 01/09/22 01/14/22 Rx Losartan [Cozaar] 25 mg PO DAILY #30 tab 01/09/22 01/14/22 Rx Metoprolol Succinate (ER) [Toprol 25 mg PO DAILY #30 tab 01/09/22 01/14/22 Rx XL] Nitroglycerin Sl Tabs [Nitrostat] 0.4 mg SL Q5M PRN 01/14/22 01/14/22 History Allergies Allergy/AdvReac Type Severity Reaction Status Date / Time cephalexin [From Keflex] Allergy Rash/Hives Verified 01/14/22 12:20 isosorbide [From Imdur] Allergy Anaphylaxis Verified 01/14/22 12:20 Surgical - Exam Vital Signs Temp Pulse Resp BP Pulse Ox 98.1 F 90 18 127/84 98 01/14/22 10:13 01/14/22 10:13 01/14/22 10:13 01/14/22 10:13 01/14/22 10:13 General appearance: The patient is alert, oriented, appears in no acute distress. HET: Head is normocephalic and atraumatic. Neck: Supple. Heart: S1 S2. Regular rate and rhythm. Lungs: Clear to auscultation bilaterally. Abdomen: Soft, nontender, nondistended. Extremities: Normal skin color and turgor. Right upper extremity and hand warm to touch, good capillary refill. Full range of motion. Palpable faint radial and bounding ulnar pulse as well as positive brachial ulnar and radial Doppler signals with intact arch. Access site without any hematoma or bleeding. Tender to palpation. Neurological: No focal deficits. Strength and sensation are grossly intact. Results - Labs 01/15/22 06:55 01/15/22 06:55 Abnormal Lab Results - Last 24 Hours (Table) 01/14/22 01/14/22 01/14/22 Range/Units 12:11 12:11 17:59 WBC 11.2 H (3.8-10.6) k/uL Monocytes # (Manual) 1.12 H (0-1.0) k/uL Metamyelocytes # (Man) (0) k/uL APTT 31.5 H (22.0-30.0) sec BUN 25 H (7-17) mg/dL Glucose 103 H (74-99) mg/dL Calcium (8.4-10.2) mg/dL 01/15/22 01/15/22 01/15/22 Range/Units 00:36 06:55 06:55 WBC (3.8-10.6) k/uL Monocytes # (Manual) (0-1.0) k/uL Metamyelocytes # (Man) 0.10 H (0) k/uL APTT 74.6 H (22.0-30.0) sec BUN 21 H (7-17) mg/dL Glucose 103 H (74-99) mg/dL Calcium 8.0 L (8.4-10.2) mg/dL 01/15/22 Range/Units 06:55 WBC (3.8-10.6) k/uL Monocytes # (Manual) (0-1.0) k/uL Metamyelocytes # (Man) (0) k/uL APTT 48.1 H (22.0-30.0) sec BUN (7-17) mg/dL Glucose (74-99) mg/dL Calcium (8.4-10.2) mg/dL Diabetes panel 01/14/22 01/15/22 Range/Units 12:11 06:55 Sodium 137 138 (137-145) mmol/L Potassium 4.3 4.6 (3.5-5.1) mmol/L Chloride 100 103 (98-107) mmol/L Carbon Dioxide 27 27 (22-30) mmol/L BUN 25 H 21 H (7-17) mg/dL Creatinine 0.76 0.75 (0.52-1.04) mg/dL Glucose 103 H 103 H (74-99) mg/dL Calcium 8.7 8.0 L (8.4-10.2) mg/dL AST 22 (14-36) U/L ALT 22 (4-34) U/L Alkaline Phosphatase 59 (38-126) U/L Total Protein 7.3 (6.3-8.2) g/dL Albumin 4.5 (3.5-5.0) g/dL Calcium panel 01/14/22 01/15/22 Range/Units 12:11 06:55 Calcium 8.7 8.0 L (8.4-10.2) mg/dL Albumin 4.5 (3.5-5.0) g/dL Pituitary panel 01/14/22 01/15/22 Range/Units 12:11 06:55 Sodium 137 138 (137-145) mmol/L Potassium 4.3 4.6 (3.5-5.1) mmol/L Chloride 100 103 (98-107) mmol/L Carbon Dioxide 27 27 (22-30) mmol/L BUN 25 H 21 H (7-17) mg/dL Creatinine 0.76 0.75 (0.52-1.04) mg/dL Glucose 103 H 103 H (74-99) mg/dL Calcium 8.7 8.0 L (8.4-10.2) mg/dL Adrenal panel 01/14/22 01/15/22 Range/Units 12:11 06:55 Sodium 137 138 (137-145) mmol/L Potassium 4.3 4.6 (3.5-5.1) mmol/L Chloride 100 103 (98-107) mmol/L Carbon Dioxide 27 27 (22-30) mmol/L BUN 25 H 21 H (7-17) mg/dL Creatinine 0.76 0.75 (0.52-1.04) mg/dL Glucose 103 H 103 H (74-99) mg/dL Calcium 8.7 8.0 L (8.4-10.2) mg/dL Total Bilirubin 0.5 (0.2-1.3) mg/dL AST 22 (14-36) U/L ALT 22 (4-34) U/L Alkaline Phosphatase 59 (38-126) U/L Total Protein 7.3 (6.3-8.2) g/dL Albumin 4.5 (3.5-5.0) g/dL Assessment and Plan Assessment: 1. Possible right radial artery occlusion from right breast to origin at brachial artery at the antecubital fossa seen on venous duplex 2. Right upper extremity pain 3. Recent cardiac catheterization via axis of right radial artery Plan: 1. May discontinue heparin drip. Add Plavix. Continue aspirin 2. Continue medical management 3. No indication for any vascular surgical intervention. Patient is clear from vascular surgery for discharge. Follow-up with Dr. Bhandari tomorrow. Follow- up with vascular surgery in one week if no improvement in pain. Thank you for this consultation, we will sign off at this time. The impression and plan of care has been dictated as directed. I performed a history and examination of this patient, discussed the same with the dictator. I agree with the dictator's note ,documented as a scribe. Any additional findings or plans will be noted.
[2022-01-15] MEDS ORDERED: CLOPIDOGREL 75 MG TAB PO SCH (09:45)
--- NOTE | 2022-01-15 09:50 | P.CRDCN ---
History of Present Illness Consult date: 01/15/22 History of present illness: History of Present Illness: The patient is a 51-year-old female with a prior history of CAD, post stenting of the LAD history of cardiomyopathy who presented recently with symptoms of chest discomfort and negative troponins, she underwent cardiac catheterization by Dr. Bhandari mild in-stent restenosis. She presents back because of numbness in her right hand but no weakness. She has mild soreness in the forearm. She denies any chest pain, her breathing is stable, she denies any dizziness or palpitations. She has no PND, orthopnea or peripheral edema. She has stopped smoking at the time of her myocardial infarction. Her echocardiogram performed on the last admission showed an ejection fraction of 40-45% with evidence of apical aneurysm. Her coronary risk factors are hypertension and hyperlipidemia, she is nondiabetic. She had an ultrasound of the right arm that showed possible thrombus in the right radial artery. Medications: Cozaar 25 mg daily, Lipitor 80 mg daily, Toprol 25 mg daily, Lasix 40 mg daily, aspirin 81 mg daily Review of Systems: Respiratory: No history of asthma, bronchitis or recent cough. GI: No nausea or vomiting . No history of peptic ulcer disease. No recent GI bleed. : No hematuria or dysuria. Nervous System: No stroke or seizure. Physical Examination: 51-year-old female, obese, alert oriented no apparent distress,Blood pressure 120/60, Heart rate 60 Head: Normocephalic. Eyes: Sclerae nonicteric. Neck: Good carotid upstroke, no bruit, no jugular venous distention. Lungs: Clear to auscultation. Heart: Regular rate and rhythm, S1-S2, no S3, no rub. No murmur. Abdomen: Soft nontender, positive bowel sounds no organomegaly. Extremities: No edema, mild tenderness over the right radial axis, no discoloration or weakness, weak radial pulse. Labs: Hemoglobin 12.4, potassium 4.6, BUN 21, creatinine 0.75, ultrasound sound of the right upper extremity cannot exclude thrombosis or occlusion of the radial artery Impression: 1. Right hand discomfort, improved, possible right radial acute occlusion post cath 2. Status post cardiac catheterization and no significant in-stent restenosis 3. History of ischemic cardiomyopathy 4. History of hypertension Plan: 1. Right radial artery occlusion occurs in about 5% post cardiac catheterization, no intervention is needed the absence of any acute ischemic symptoms. A fair number of the radial artery recanalized spontaneously. 2. Stop IV heparin 3. Increase physical activity 4. If stable probably DC home today and follow-up with Dr. Bhandari tomorrow 5. Thank you for this consult we will follow with you Past Medical History Past Medical History: Coronary Artery Disease (CAD), Myocardial Infarction ([place]) Additional Past Medical History / Comment(s): pt states she had a blood clot in left ventricle and was on coumadin for a period of time and now is off coumadin. Last Myocardial Infarction Date:: April 2017 History of Any Multi-Drug Resistant Organisms: None Reported Past Surgical History: Section, Heart Catheterization With Stent Past Anesthesia/Blood Transfusion Reactions: No Reported Reaction Additional Past Anesthesia/Blood Transfusion Reaction / Comment(s): pt states she has never had a blood transfusion. Date of Last Stent Placement:: Apr 2017 Past Psychological History: No Psychological Hx Reported Smoking Status: Former smoker Past Alcohol Use History: None Reported Past Drug Use History: None Reported - Past Family History Mother Family Medical History: No Reported History Additional Family Medical History / Comment(s): pt does not know. pt is adopted. Father Family Medical History: No Reported History Additional Family Medical History / Comment(s): pt does not know. pt is adopted. Medications and Allergies Home Medications Medication Instructions Recorded Confirmed Type Aspirin 81 mg PO DAILY chew 02/13/19 01/14/22 Rx Atorvastatin [Lipitor] 80 mg PO DAILY #30 tab 01/09/22 01/14/22 Rx Furosemide [Lasix] 40 mg PO DAILY #30 tab 01/09/22 01/14/22 Rx Losartan [Cozaar] 25 mg PO DAILY #30 tab 01/09/22 01/14/22 Rx Metoprolol Succinate (ER) [Toprol 25 mg PO DAILY #30 tab 01/09/22 01/14/22 Rx XL] Nitroglycerin Sl Tabs [Nitrostat] 0.4 mg SL Q5M PRN 01/14/22 01/14/22 History Allergies Allergy/AdvReac Type Severity Reaction Status Date / Time cephalexin [From Keflex] Allergy Rash/Hives Verified 01/14/22 12:20 isosorbide [From Imdur] Allergy Anaphylaxis Verified 01/14/22 12:20 Physical Exam Vitals: Vital Signs Temp Pulse Pulse Pulse Resp BP BP 01/15/22 08:45 52 L 18 121/68 01/15/22 04:00 60 18 117/78 01/15/22 02:00 16 01/15/22 00:00 53 L 16 107/64 01/14/22 20:00 98 F 55 L 16 110/68 01/14/22 15:30 98 F 63 16 101/85 01/14/22 14:00 59 L 18 01/14/22 13:20 97.9 F 59 L 18 115/70 01/14/22 12:26 62 18 115/66 01/14/22 10:13 98.1 F 90 18 127/84 Pulse Ox 01/15/22 08:45 97 01/15/22 04:00 97 01/15/22 02:00 01/15/22 00:00 96 01/14/22 20:00 98 01/14/22 15:30 97 01/14/22 14:00 01/14/22 13:20 93 L 01/14/22 12:26 94 L 01/14/22 10:13 98 Intake and Output 01/14/22 01/15/22 01/15/22 22:59 06:59 14:59 Intake Total 267.167 82.899 Balance 267.167 82.899 Intake: Intake, IV Titration 67.167 82.899 Amount Heparin Sod,Pork in 0.45% 67.167 82.899 NaCl 25,000 unit In 0.45 % NaCl 1 250ml.bag @ 11. 023 UNITS/KG/HR 10 mls/hr IV .Q24H [facility] Rx#: [id number] Oral 200 Other: # Voids 1 1 Results 01/15/22 06:55 01/15/22 06:55 Cardiac Enzymes 01/14/22 Range/Units 12:11 AST 22 (14-36) U/L Coagulation 01/14/22 01/14/22 01/15/22 Range/Units 12:11 17:59 00:36 PT 9.9 10.5 (9.0-12.0) sec APTT 24.0 31.5 H 74.6 H (22.0-30.0) sec 01/15/22 Range/Units 06:55 PT (9.0-12.0) sec APTT 48.1 H (22.0-30.0) sec CBC 01/14/22 01/15/22 Range/Units 12:11 06:55 WBC 11.2 H 9.8 (3.8-10.6) k/uL RBC 4.80 4.10 (3.80-5.40) m/uL Hgb 14.1 12.4 (11.4-16.0) gm/dL Hct 44.0 38.6 (34.0-46.0) % Plt Count 320 295 (150-450) k/uL Comprehensive Metabolic Panel 01/14/22 01/15/22 Range/Units 12:11 06:55 Sodium 137 138 (137-145) mmol/L Potassium 4.3 4.6 (3.5-5.1) mmol/L Chloride 100 103 (98-107) mmol/L Carbon Dioxide 27 27 (22-30) mmol/L BUN 25 H 21 H (7-17) mg/dL Creatinine 0.76 0.75 (0.52-1.04) mg/dL Glucose 103 H 103 H (74-99) mg/dL Calcium 8.7 8.0 L (8.4-10.2) mg/dL AST 22 (14-36) U/L ALT 22 (4-34) U/L Alkaline Phosphatase 59 (38-126) U/L Total Protein 7.3 (6.3-8.2) g/dL Albumin 4.5 (3.5-5.0) g/dL Current Medications Generic Name Dose Route Start Last Admin Trade Name Freq PRN Reason Stop Dose Admin Hydrocodone Bitart/Acetaminophen 1 each 01/14/22 14:42 01/15/22 03:47 Hydrocodone/Apap 5-325mg 1 Each Tab PO 1 each Q6HR PRN Administration Pain Aspirin 81 mg 01/15/22 09:00 01/15/22 08:48 Aspirin 81 Mg PO 81 mg DAILY JASMIN Administration Atorvastatin Calcium 80 mg 01/15/22 09:00 01/15/22 08:48 Atorvastatin 80 Mg Tab PO 80 mg DAILY JSAMIN Administration Furosemide 40 mg 01/15/22 09:00 01/15/22 08:48 Furosemide 40 Mg Tab PO 40 mg DAILY JASMIN Administration Heparin Sodium (Porcine) 0 unit 01/14/22 12:04 09/18/22 19:05 Heparin Sodium 1,000 Un/Ml (10ml Vl) IV 4,000 unit PER PROTOCOL PRN Administration Low PTT Protocol Hydromorphone HCl 0.5 mg 01/14/22 12:20 Hydromorphone 0.5 Mg/0.5 Ml Syringe IVP Q3HR PRN Moderate Pain (Scale 4 to 6) Heparin Sodium/Sodium Chloride 250 mls @ 10 mls/hr 01/14/22 12:15 01/15/22 01:34 25,000 unit/ Sodium Chloride IV 12.023 units/kg/hr .Q24H JASMIN 10.907 mls/hr Titration Protocol 11.023 UNITS/KG/HR Sodium Chloride 1,000 mls @ 75 mls/hr 01/14/22 12:30 01/14/22 23:55 Saline 0.9% IV 75 mls/hr .[id number] JASMIN Administration Losartan Potassium 25 mg 01/15/22 09:00 01/15/22 08:48 Losartan 25 Mg Tab PO 25 mg DAILY JASMIN Administration Metoprolol Succinate 25 mg 01/15/22 09:00 01/15/22 08:48 Metoprolol Succinate (Er) 25 Mg Tab.Er.24h PO 25 mg DAILY JASMIN Administration Naloxone HCl 0.2 mg 01/14/22 12:20 Naloxone 0.4 Mg/Ml 1 Ml Vial IV Q2M PRN Opioid Reversal Intake and Output 01/14/22 01/15/22 01/15/22 22:59 06:59 14:59 Intake Total 267.167 82.899 Balance 267.167 82.899 Intake: Intake, IV Titration 67.167 82.899 Amount Heparin Sod,Pork in 0.45% 67.167 82.899 NaCl 25,000 unit In 0.45 % NaCl 1 250ml.bag @ 11. 023 UNITS/KG/HR 10 mls/hr IV .Q24H [facility] Rx#: [id number] Oral 200 Other: # Voids 1 1 01/15/22 06:55 01/15/22 06:55
[2022-01-15 11:30] VITALS: BP 105/66; PULSE 66; TEMP 98
--- NOTE | 2022-01-15 21:59 | P.DS ---
Providers Date of admission: 01/14/22 12:20 Attending physician: Peace Andrade Consults: 01/14/22 12:20 Consult Physician Routine Consulting Provider: Estela Quesada Consult Reason/Comments: Radial artery thrombosis Do you want consulting provider notified?: Already Contacted Consult Physician Routine Consulting Provider: Jonathan Branch Consult Reason/Comments: Radial artery thrombosis Do you want consulting provider notified?: Already Contacted Primary care physician: Hector Ware Hospital Course: Diagnoses: Right wrist pain, right arterial thrombosis suspected, patient treated for discharge by snowboarding instructor and vascular surgery Recent history of chest pain, with a recent history of cardiac cath about one week earlier showing relatively normal coronary arteries with mid LAD stent restenosis about 20% Hypertension Hyperlipidemia Hospital course: 51-year-old female with right wrist pain. Patient is 5 days status post heart cath. Presents with right wrist pain Venous Doppler: Internal echoes are noted within the right radial artery from the wrist to the antecubital fossa. Doppler also shows no internal color flow. Unable to exclude thrombosis/occlusion of the renal arteries. Patient developed by snowboarding instructor and vascular surgeon. Her anticoagulation was stopped. Patient continued on home dose of aspirin, Plavix added by vascular surgery team The patient has minimal numbness at the tip of the middle fingers, mild pain in the wrist area, currently 3/10 in severity, no loss of function, no weakness. She was cleared for discharge by snowboarding instructor and vascular surgery today with recommendation to follow up as an outpatient in 1 week and she agrees. Patient will be discharged on aspirin or Plavix Problems and management plan were discussed with the patient and he verbalized understanding and acceptance Patient was found stable and can be discharged home in guared prognosis however he needs follow-up as an outpatient. Patient was instructed to follow up with PCP within one week and patient agrees Patient was instructed to follow up with snowboarding instructor Dr. Branch in one week and vascular surgeon Dr. sam in one week and pt agrees to call and make her own appointment Physical exam Gen: patient is a AAOx3, no distress CVS: S1-S2, RRR, no murmur Lungs: B/L CTA, no wheezing Abdomen: soft, no distention, no tenderness, positive bowel sounds Extremity: no leg edema or induration Time spent more than 35 minutes Patient Condition at Discharge: Stable Plan - Discharge Summary Discharge Rx Participant: No New Discharge Prescriptions: New Clopidogrel [Plavix] 75 mg PO DAILY #30 tab Continue Losartan [Cozaar] 25 mg PO DAILY #30 tab Furosemide [Lasix] 40 mg PO DAILY #30 tab Metoprolol Succinate (ER) [Toprol XL] 25 mg PO DAILY #30 tab Nitroglycerin Sl Tabs [Nitrostat] 0.4 mg SL Q5M PRN PRN Reason: Chest Pain Atorvastatin [Lipitor] 80 mg PO DAILY #30 tab Aspirin 81 mg PO DAILY #30 tab Discharge Medication List Atorvastatin [Lipitor] 80 mg PO DAILY #30 tab 01/09/22 [Rx] Furosemide [Lasix] 40 mg PO DAILY #30 tab 01/09/22 [Rx] Losartan [Cozaar] 25 mg PO DAILY #30 tab 01/09/22 [Rx] Metoprolol Succinate (ER) [Toprol XL] 25 mg PO DAILY #30 tab 01/09/22 [Rx] Nitroglycerin Sl Tabs [Nitrostat] 0.4 mg SL Q5M PRN 01/14/22 [History] Aspirin 81 mg PO DAILY #30 tab 01/15/22 [Rx] Clopidogrel [Plavix] 75 mg PO DAILY #30 tab 01/15/22 [Rx] Follow up Appointment(s)/Referral(s): Hector Ware MD [Primary Care Provider] - 1-2 days Ryland Bhandari DO [STAFF PHYSICIAN] - 1-2 Days (keep current appointment for tomorrow) Rajeev Sam DO [STAFF PHYSICIAN] - 01/23/22 12:30 pm Activity/Diet/Wound Care/Special Instructions: Heart healthy diet Activity is restricted till you see your doctor Discharge Disposition: HOME SELF-CARE
[2022-01-16] MEDS ORDERED: FUROSEMIDE 20 MG TAB PO SCH (09:00)
== END 2022-01-15 14:28 | disposition home or self-care (01) ==
LOC: EC 10:11 → INTOOBSV 12:20 → 3SCARD 12:20 → UNDODISIN 01-15 14:28
PROVIDERS: ADMIT Hospitalist; ATTEND Hospitalist
DX: T82.847A Pain due to cardiac prosthetic devices, implants and grafts, initial encounter (principal); M25.531 Pain in right wrist; R20.0 Anesthesia of skin; T82.855A Stenosis of coronary artery stent, initial encounter; I25.5 Ischemic cardiomyopathy; I25.10 Atherosclerotic heart disease of native coronary artery without angina pectoris; E78.5 Hyperlipidemia, unspecified; I10 Essential (primary) hypertension; Y84.0 Cardiac catheterization as the cause of abnormal reaction of the patient, or of later complication, without mention of misadventure at the time of the procedure; I25.2 Old myocardial infarction; Z79.82 Long term (current) use of aspirin; Z79.899 Other long term (current) drug therapy; Z95.5 Presence of coronary angioplasty implant and graft; Z98.891 History of uterine scar from previous surgery; Z87.891 Personal history of nicotine dependence; Z88.1 Allergy status to other antibiotic agents; Z88.8 Allergy status to other drugs, medicaments and biological substances
CPT/HCPCS: 96376; 96366 ×2; 96365; 96375; 99285; 36415; 80053; 80048; 85025 ×2; 85610 ×2; 85730 ×2; 93971; G0378 ×2; J2405; J1644 ×2; J1170; 96374

== ENCOUNTER 2022-08-28 10:09 | Emergency (ER) | payer OTHER ==
--- NOTE | 2022-08-28 11:23 | ED ---
General Adult HPI - General Source: patient, RN notes reviewed Mode of arrival: ambulatory Limitations: no limitations <Caryn Angeles - Last Filed: 08/28/22 11:23> <Luciano Martinez - Last Filed: 08/28/22 14:43> - General Chief complaint: Extremity Injury, Lower Stated complaint: recheck Time Seen by Provider: 08/28/22 11:22 - History of Present Illness Initial comments: 51-year-old female with past medical history significant for CAD presents to the emergency department with chief complaint of left lower extremity swelling. She was referred here from urgent care to rule out DVT. Denies shortness of breath. (Caryn Angeles) Patient is a 51-year-old female presents emergency Department over concern for left ankle swelling. Originally presented to urgent care who sent her here for DVT rule out. Patient has chronic edema of the legs. Have a history of arthr itis of both legs. The last few weeks she has been having worsening pain in her left ankle. Seems swollen and difficult with any movement. No obvious trauma. Does have a history of a provoked blood clot previously secondary to surgery but none since. No other acute complaints at this time. Presents for further evaluation. No longer on blood thinners. Denies shortness of breath or chest pain. Originally seen as a quick note. (Luciano Martinez) - Related Data Home Medications Medication Instructions Recorded Confirmed Nitroglycerin Sl Tabs [Nitrostat] 0.4 mg SL Q5M PRN 01/14/22 01/14/22 Previous Rx's Medication Instructions Recorded Atorvastatin [Lipitor] 80 mg PO DAILY #30 tab 01/09/22 Furosemide [Lasix] 40 mg PO DAILY #30 tab 01/09/22 Losartan [Cozaar] 25 mg PO DAILY #30 tab 01/09/22 Metoprolol Succinate (ER) [Toprol 25 mg PO DAILY #30 tab 01/09/22 XL] Aspirin 81 mg PO DAILY #30 tab 01/15/22 Clopidogrel [Plavix] 75 mg PO DAILY #30 tab 01/15/22 Allergies Allergy/AdvReac Type Severity Reaction Status Date / Time cephalexin [From Keflex] Allergy Rash/Hives Verified 08/28/22 10:40 isosorbide [From Imdur] Allergy Anaphylaxis Verified 08/28/22 10:40 Review of Systems ROS Other: All systems not noted in ROS Statement are negative. <Caryn Angeles - Last Filed: 08/28/22 11:23> ROS Other: All systems not noted in ROS Statement are negative. <Luciano Martinez - Last Filed: 08/28/22 14:43> ROS Statement: Those systems with pertinent positive or pertinent negative responses have been documented in the HPI. Review of Systems: CONST: Denies fever EYES: Denies blurry vision ENT: Denies nasal congestion C/V: Denies Chest pain RESP: Denies shortness of breath GI: Denies abdominal pain : Denies dysuria SKIN: Denies rash. MSK: Endorses left ankle pain NEURO: Denies headache (Luciano Martinez) Past Medical History Past Medical History: Coronary Artery Disease (CAD), Myocardial Infarction (ND) Additional Past Medical History / Comment(s): pt states she had a blood clot in left ventricle and was on coumadin for a period of time and now is off coumadin. Last Myocardial Infarction Date:: April 2017 History of Any Multi-Drug Resistant Organisms: None Reported Past Surgical History: Section, Heart Catheterization With Stent Past Anesthesia/Blood Transfusion Reactions: No Reported Reaction Additional Past Anesthesia/Blood Transfusion Reaction / Comment(s): pt states she has never had a blood transfusion. Date of Last Stent Placement:: Apr 2017 Past Psychological History: No Psychological Hx Reported Smoking Status: Former smoker Past Alcohol Use History: None Reported Past Drug Use History: None Reported - Past Family History Mother Family Medical History: No Reported History Additional Family Medical History / Comment(s): pt does not know. pt is adopted. Father Family Medical History: No Reported History Additional Family Medical History / Comment(s): pt does not know. pt is adopted. <Caryn Angeles - Last Filed: 08/28/22 11:23> General Exam Limitations: no limitations <Caryn Angeles - Last Filed: 08/28/22 11:23> <Luciano Martinez - Last Filed: 08/28/22 14:43> - General Exam Comments Initial Comments: Visual Physical Exam Vital signs reviewed General: Well-appearing, nontoxic, no acute distress. Head: Normocephalic, atraumatic Eyes: PERRLA, EOMI ENT: Airway patent Chest: Nonlabored breathing Skin: No visual rash, normal skin tone Neuro: Alert and oriented 3 Musculoskeletal: No gross abnormalities (Caryn Angeles) General: Appears in no acute distress. HEAD: Normal with no signs of head trauma. EYES: EOMI. ENT: Hearing grossly intact. RESPIRATORY: No respiratory distress. Clear breath sounds bilaterally. No hypoxia. C/V: Regular rate and rhythm. S1 and S2 auscultated. Peripheral pulses 2+ and intact throughout. ABD: Abdomen is nondistended. EXT: Denies on the medial and lateral malleolus of the left ankle. No obvious deformities. Decreased range of motion secondary to pain. Neurovascularly intact throughout. SKIN: No rashes or lesions observed on exposed skin. NEURO: Alert and oriented. (Luciano Martinez) Course Vital Signs 08/28/22 08/28/22 10:37 13:46 Temperature 98.0 F 98 F Pulse Rate 82 62 Respiratory 20 16 Rate Blood Pressure 142/87 158/84 O2 Sat by Pulse 99 98 Oximetry Medical Decision Making <Luciano Martinez - Last Filed: 08/28/22 14:43> - Medical Decision Making Was pt. sent in by a medical professional or institution (, PA, [employer], urgent care, hospital, or care home...) When possible be specific @ -Evaluated at urgent care and sent here for DVT ultrasound and x-rays. Did you speak to anyone other than the patient for history (EMS, parent, family, police, friend...)? What history was obtained from this source @ -No Did you review nursing and triage notes (agree or disagree)? Why? @ -I reviewed and agree with nursing and triage notes Were old charts reviewed (outside hosp., previous admission, EMS record, old EKG, old radiological studies, urgent care reports/EKG's, care home records)? Report findings @ -No old charts were reviewed Differential Diagnosis (chest pain, altered mental status, abdominal pain women, abdominal pain men, vaginal bleeding, weakness, fever, dyspnea, syncope, headache, dizziness, GI bleed, back pain, seizure, CVA, palpatations, mental health, musculoskeletal)? @ -DVT, ankle sprain, ankle fracture, arthritis. This list is not always is. EKG interpreted by me (3pts min.). @ -None done X-rays interpreted by me (1pt min.). @ -Left ankle x-ray shows no obvious acute bony traumatic injury. CT interpreted by me (1pt min.). @ -None done U/S interpreted by me (1pt. min.). @ -Venous duplex for DVT of the left lower extremity negative per radiology. What testing was considered but not performed or refused? (CT, X-rays, U/S, labs)? Why? @ -None What meds were considered but not given or refused? Why? @ -I did offer oral analgesic medications which the patient declines. Did you discuss the management of the patient with other professionals (professionals i.e. , PA, [employer], lab, RT, psych nurse, transition social worker, farmer cash grain, teacher, chief analytics officer, renal case manager)? Give summary @ -No Was smoking cessation discussed for >3mins.? @ -No Was critical care preformed (if so, how long)? @ -No Were there social determinants of health that impacted care today? How? (Homelessness, low income, unemployed, alcoholism, drug addiction, transportation, low edu. Level, literacy, decrease access to med. care, half-way, rehab)? @ -No Was there de-escalation of care discussed even if they declined (Discuss DNR or withdrawal of care, Hospice)? DNR status @ -No What co-morbidities impacted this encounter? (DM, HTN, Smoking, COPD, CAD, Cancer, CVA, ARF, Chemo, Hep., AIDS, mental health diagnosis, sleep apnea, morbid obesity)? @ -None Was patient admitted / discharged? Hospital course, mention meds given and route, prescriptions, significant lab abnormalities, going to OR and other pertinent info. @ -Based on the patient's presentation and physical exam, was sent by urgent care for DVT evaluation. We will obtain left ankle x-ray as well as a left lower extremity venous duplex ultrasound. She defines analgesic medications at this time. No respiratory distress. No concern for PE. Vital signs within normal limits. Patient was in agreement this plan. Imaging unremarkable. I updated the patient and she expressed understanding. I will provide her with a work note, crutches, as well as an Louie bandage. She was in agreement with the plan. She will receive ortho follow up as well. Recommended rest, icing, elevation. I instructed the patient to follow up with their PCP in the next 1-3 days. I provided contact information for follow up with orthopedic. I explained that the patient should return to the emergency department if they experience any worsening symptoms. Strict return precautions were discussed with the patient. The patient expressed understanding of these instructions. I answered all questions that the patient had. The patient was discharged home in good condition with their prescriptions and follow up information. Undiagnosed new problem with uncertain prognosis? @ -No Drug Therapy requiring intensive monitoring for toxicity (Heparin, Nitro, Insulin, Cardizem)? @ -No Were any procedures done? @ -No (Luciano Martinez) Disposition <Caryn Angeles - Last Filed: 08/28/22 11:23> Is patient prescribed a controlled substance at d/c from ED?: No Time of Disposition: 13:05 <Luciano Martinez - Last Filed: 08/28/22 14:43> Clinical Impression: Ankle sprain Disposition: HOME SELF-CARE Instructions (If sedation given, give patient instructions): Ankle Sprain (ED) Referrals: None,Stated [Primary Care Provider] - 1-2 days Alejandro Sood MD [STAFF PHYSICIAN] - 1-2 days
--- NOTE | 2022-08-28 12:00 | XR ---
EXAMINATION TYPE: XR ankle complete LT DATE OF EXAM: 08/28/2022 11:55 AM INDICATION: Patient age:Female; 51 years old; Reason for study: ankle pain; COMPARISON: None TECHNIQUE: The left ankle is imaged in frontal, lateral and oblique projections. FINDINGS: There is no evidence of acute osseous pathology. The joint spaces are well-preserved without evidenc e of subluxation or dislocation. Kager's fat pad is intact. Mild soft tissue swelling around the ankl e. No radiopaque foreign bodies are identified. Calcaneal Achilles enthesophyte and plantar spurring are present. Mild degeneration of the joints of the foot. IMPRESSION: 1. No evidence of acute fracture. 2. Subcutaneous swelling around the ankle likely secondary to underlying soft tissue injury.
--- NOTE | 2022-08-28 12:53 | US ---
EXAMINATION TYPE: US venous doppler duplex LE LT DATE OF EXAM: 08/28/2022 12:20 PM COMPARISON: NONE CLINICAL INDICATION: Female, 51 years old with history of r/out DVT; pain SIDE PERFORMED: Left TECHNIQUE: The lower extremity deep venous system is examined utilizing real time linear array sonog anjelica with graded compression, doppler sonography and color-flow sonography. VESSELS IMAGED: Common Femoral Vein Deep Femoral Vein Greater Saphenous Vein * Femoral Vein Popliteal Vein Small Saphenous Vein * Proximal Calf Veins (* superficial vessels) Left Leg: Negative for DVT IMPRESSION: Grayscale, color doppler, spectral doppler imaging performed of the deep veins of the lo wer extremities. There is normal flow, compressibility, vascular waveforms.
[2022-08-28] MEDS ORDERED: ACET/COD 300 MG/30 MG STARTER PACK 6 TAB BTL PO STA (13:24)
[2022-08-28 13:48] VITALS: BP 158/84; PULSE 62; RESP 16; TEMP 98
== END 2022-08-28 14:11 | disposition home or self-care (01) ==
LOC: EC 10:09
DX: S93.402A Sprain of unspecified ligament of left ankle, initial encounter (principal); I25.10 Atherosclerotic heart disease of native coronary artery without angina pectoris; I25.2 Old myocardial infarction; Z87.891 Personal history of nicotine dependence; Z88.1 Allergy status to other antibiotic agents; Z88.8 Allergy status to other drugs, medicaments and biological substances; X58.XXXA Exposure to other specified factors, initial encounter
CPT/HCPCS: 99283

== ENCOUNTER 2022-11-24 01:03 | Emergency (ER) | payer OTHER ==
[2022-11-24 01:44] VITALS: TEMP 98.7
[2022-11-24] MEDS ORDERED: IBUPROFEN 600 MG STARTER PACK 4 TAB BTL PO STA (02:09)
[2022-11-24] MEDS ORDERED: ACET/COD 300 MG/30 MG STARTER PACK 6 TAB BTL PO STA (02:09)
[2022-11-24] MEDS ORDERED: SULFAMETHOX-TMP 800-160MG 1 EACH TAB PO STA (02:09)
--- NOTE | 2022-11-24 02:12 | ED ---
Skin/Abscess/FB HPI - General Chief complaint: Extremity Injury, Upper Stated complaint: Infected Cat Scratch, swollen right hand Time Seen by Provider: 11/24/22 01:48 Source: patient, RN notes reviewed Mode of arrival: ambulatory Limitations: no limitations - History of Present Illness Initial comments: This is a 52-year-old female who presents to the emergency department for a cat scratch. 2 days ago she was playing with her cat, when her cat accidentally scratched her right thumb. She was initially developing increasing redness and swelling to the area. On the way here, the wound started to drain both purulent and clear fluid, and she states that the swelling seems to have started to go down. However, she is still having pain to most of the hand. Tetanus vaccine is up-to-date. Denies any fevers. Denies any fevers, chills, sore throat, cough, dyspnea, chest pain, palpitations, abdominal pain, nausea, vomiting, diarrhea, back pain, or headaches. - Related Data Home Medications Medication Instructions Recorded Confirmed Nitroglycerin Sl Tabs [Nitrostat] 0.4 mg SL Q5M PRN 01/14/22 01/14/22 Previous Rx's Medication Instructions Recorded Atorvastatin [Lipitor] 80 mg PO DAILY #30 tab 01/09/22 Furosemide [Lasix] 40 mg PO DAILY #30 tab 01/09/22 Losartan [Cozaar] 25 mg PO DAILY #30 tab 01/09/22 Metoprolol Succinate (ER) [Toprol 25 mg PO DAILY #30 tab 01/09/22 XL] Aspirin 81 mg PO DAILY #30 tab 01/15/22 Clopidogrel [Plavix] 75 mg PO DAILY #30 tab 01/15/22 Sulfamethox-Tmp 800-160Mg [Bactrim 1 tab PO Q12HR 7 Days #14 tab 11/24/22 DS 800-160 mg] Allergies Allergy/AdvReac Type Severity Reaction Status Date / Time cephalexin [From Keflex] Allergy Rash/Hives Verified 11/24/22 01:38 isosorbide [From Imdur] Allergy Anaphylaxis Verified 11/24/22 01:38 Review of Systems ROS Statement: Those systems with pertinent positive or pertinent negative responses have been documented in the HPI. ROS Other: All systems not noted in ROS Statement are negative. Past Medical History Past Medical History: Coronary Artery Disease (CAD), Myocardial Infarction (CT) Additional Past Medical History / Comment(s): pt states she had a blood clot in left ventricle and was on coumadin for a period of time and now is off coumadin. Last Myocardial Infarction Date:: April 2017 History of Any Multi-Drug Resistant Organisms: None Reported Past Surgical History: Section, Heart Catheterization With Stent Past Anesthesia/Blood Transfusion Reactions: No Reported Reaction Additional Past Anesthesia/Blood Transfusion Reaction / Comment(s): pt states she has never had a blood transfusion. Date of Last Stent Placement:: Apr 2017 Past Psychological History: No Psychological Hx Reported Smoking Status: Former smoker Past Alcohol Use History: None Reported Past Drug Use History: None Reported - Past Family History Mother Family Medical History: No Reported History Additional Family Medical History / Comment(s): pt does not know. pt is adopted. Father Family Medical History: No Reported History Additional Family Medical History / Comment(s): pt does not know. pt is adopted. General Exam Limitations: no limitations General appearance: alert, in no apparent distress Head exam: Present: atraumatic, normocephalic, normal inspection Respiratory exam: Present: normal lung sounds bilaterally. Absent: respiratory distress, wheezes, rales, rhonchi, stridor Cardiovascular Exam: Present: regular rate, normal rhythm, normal heart sounds. Absent: systolic murmur, diastolic murmur, rubs, gallop, clicks Neurological exam: Present: alert, oriented X3, CN II-XII intact Psychiatric exam: Present: normal affect, normal mood Skin exam: Present: other (Puncture wound with surrounding erythema and tenderness to the inferior most aspect of the right thumb. No active drainage.) Course Vital Signs 11/24/22 11/24/22 01:38 02:23 Temperature 98.7 F Pulse Rate 72 64 Respiratory 16 18 Rate Blood Pressure 146/85 126/81 O2 Sat by Pulse 96 97 Oximetry Medical Decision Making - Medical Decision Making This is a 52-year-old female who presents to the emergency department for a cat scratch. Was pt. sent in by a medical professional or institution? @ -No Did you speak to anyone other than the patient for history? @ -No Did you review nursing and triage notes? @ -Yes, and I agree, it is accurate with regards to the patient's symptoms. Were old charts reviewed? @ -No Differential Diagnosis? @ -Not applicable EKG interpreted by me (3pts min.)? @ -Not obtained X-rays interpreted by me (1pt min.)? @ -Not obtained CT interpreted by me (1pt min.)? @ -Not obtained U/S interpreted by me (1pt. min.)? @ -Not obtained What testing was considered but not performed? (CT, X-rays, U/S, labs)? Why? @ -None What meds were considered but not given? Why? @ -None Did you discuss the management of the patient with other professionals? @ -No Did you reconcile home meds? @ -No Was smoking cessation discussed for >3mins.? @ -No Was critical care preformed (if so, how long)? @ -No Were there social determinants of health that impacted care today? How? (Homelessness, low income, unemployed, alcoholism, drug addiction, transportation, low edu. Level, literacy, decrease access to med. care, shelter, rehab)? @ -No Was there de-escalation of care discussed even if they declined? (Discuss DNR or withdrawal of care, Hospice)? @ -No What co-morbidities impacted this encounter? (DM, HTN, Smoking, COPD, CAD, Cancer, CVA, Hep., AIDS, mental health diagnosis, sleep apnea, morbid obesity)? @ -None Was patient admitted / discharged? @ -Discharged. Patient does appear to be starting to get an infection to the affected area. Advised that because it is draining, that is to her benefit, as it is helping to get rid of some of the infection. Patient has reactions to both penicillins and cephalosporins, and a prescription for Bactrim was thus provided. Dosing instructions reviewed. Initial dose administered in the emergency department. Otherwise advised she alternate with ibuprofen and Tylenol as needed for pain relief. Undiagnosed new problem with uncertain prognosis? @ -None Drug Therapy requiring intensive monitoring for toxicity (Heparin, Nitro, Insulin, Cardizem)? @ -None Were any procedures done? @ -None Diagnosis/symptom? @ -Cat scratch, cellulitis Acute, or Chronic, or Acute on Chronic? @ -Acute Uncomplicated (without systemic symptoms) or Complicated (systemic symptoms)? @ -Uncomplicated Side effects of treatment? @ -None Exacerbation, Progression, or Severe Exacerbation] @ -Not applicable Poses a threat to life or bodily function? @ -No Return precautions reviewed in depth, the patient is instructed to return to the emergency department with any new, worsening, or concerning symptoms. Patient verbalized understanding. This case was discussed in detail with the attending ED physician, Dr. Mcguire. Presentation, findings, and treatment plan discussed in detail as well. Disposition Clinical Impression: Cat scratch, Cellulitis Disposition: HOME SELF-CARE Instructions (If sedation given, give patient instructions): Cellulitis (ED) Additional Instructions: Return to the emergency department with any new, worsening, or concerning symptoms. Take the antibiotic as prescribed for 7 days. Alternate with ibuprofen and Tylenol as needed for pain relief. Follow up with your primary care provider in 1-2 days. Prescriptions: Sulfamethox-Tmp 800-160Mg [Bactrim DS 800-160 mg] 1 tab PO Q12HR 7 Days #14 tab Is patient prescribed a controlled substance at d/c from ED?: No Referrals: None,Stated [Primary Care Provider] - 1-2 days
[2022-11-24 02:25] VITALS: BP 126/81; PULSE 64; RESP 18
== END 2022-11-24 02:54 | disposition home or self-care (01) ==
LOC: EC 01:03
DX: L03.113 Cellulitis of right upper limb (principal); I25.10 Atherosclerotic heart disease of native coronary artery without angina pectoris; I25.2 Old myocardial infarction; Z87.891 Personal history of nicotine dependence; Z88.1 Allergy status to other antibiotic agents; W55.03XA Scratched by cat, initial encounter
CPT/HCPCS: 99283

== ENCOUNTER 2023-01-10 11:23 | Emergency (ER) | payer OTHER ==
[2023-01-10] MEDS ORDERED: DIPH,PERTUS(ACELL)TETVAC-LF 0.5 ML VIAL IM ONE (11:57)
--- NOTE | 2023-01-10 11:59 | ED ---
General Adult HPI - General Stated complaint: L Ringer Finger Lac Time Seen by Provider: 01/10/23 11:57 Source: patient, RN notes reviewed Mode of arrival: ambulatory Limitations: no limitations - History of Present Illness Initial comments: 52-year-old female presents emergency Department chief complaint laceration to her left hand finger. Patient states this happened yesterday with a new sharp knife. She is unsure when her last tetanus was. - Related Data Home Medications Medication Instructions Recorded Confirmed Nitroglycerin Sl Tabs [Nitrostat] 0.4 mg SL Q5M PRN 01/14/22 01/14/22 Previous Rx's Medication Instructions Recorded Atorvastatin [Lipitor] 80 mg PO DAILY #30 tab 01/09/22 Furosemide [Lasix] 40 mg PO DAILY #30 tab 01/09/22 Losartan [Cozaar] 25 mg PO DAILY #30 tab 01/09/22 Metoprolol Succinate (ER) [Toprol 25 mg PO DAILY #30 tab 01/09/22 XL] Aspirin 81 mg PO DAILY #30 tab 01/15/22 Clopidogrel [Plavix] 75 mg PO DAILY #30 tab 01/15/22 Sulfamethox-Tmp 800-160Mg [Bactrim 1 tab PO Q12HR 7 Days #14 tab 11/24/22 DS 800-160 mg] Allergies Allergy/AdvReac Type Severity Reaction Status Date / Time cephalexin [From Keflex] Allergy Rash/Hives Verified 01/10/23 12:24 isosorbide [From Imdur] Allergy Anaphylaxis Verified 01/10/23 12:24 Review of Systems ROS Statement: Those systems with pertinent positive or pertinent negative responses have been documented in the HPI. ROS Other: All systems not noted in ROS Statement are negative. Past Medical History Past Medical History: Coronary Artery Disease (CAD), Myocardial Infarction (AL) Additional Past Medical History / Comment(s): pt states she had a blood clot in left ventricle and was on coumadin for a period of time and now is off coumadin. Last Myocardial Infarction Date:: April 2017 History of Any Multi-Drug Resistant Organisms: None Reported Past Surgical History: Section, Heart Catheterization With Stent Past Anesthesia/Blood Transfusion Reactions: No Reported Reaction Additional Past Anesthesia/Blood Transfusion Reaction / Comment(s): pt states she has never had a blood transfusion. Date of Last Stent Placement:: Apr 2017 Past Psychological History: No Psychological Hx Reported Smoking Status: Former smoker Past Alcohol Use History: None Reported Past Drug Use History: None Reported - Past Family History Mother Family Medical History: No Reported History Additional Family Medical History / Comment(s): pt does not know. pt is adopted. Father Family Medical History: No Reported History Additional Family Medical History / Comment(s): pt does not know. pt is adopted. General Exam General appearance: alert, in no apparent distress Head exam: Present: atraumatic, normocephalic, normal inspection Respiratory exam: Present: normal lung sounds bilaterally. Absent: respiratory distress, wheezes, rales, rhonchi, stridor Cardiovascular Exam: Present: regular rate, normal rhythm, normal heart sounds. Absent: systolic murmur, diastolic murmur, rubs, gallop, clicks Extremities exam: Present: other (Left hand fourth digit distal to that there is a superficial laceration no active bleeding full range of motion) Course Vital Signs 01/10/23 12:21 Temperature 97.9 F Pulse Rate 65 Respiratory 18 Rate Blood Pressure 123/81 O2 Sat by Pulse 98 Oximetry Medical Decision Making - Medical Decision Making Was pt. sent in by a medical professional or institution (, PA, BUILDING MAINTENANCE TECHNICIAN, urgent care, hospital, or shelter...) When possible be specific @ -No Did you speak to anyone other than the patient for history (EMS, parent, family, police, friend...)? What history was obtained from this source @ -No Did you review nursing and triage notes (agree or disagree)? Why? @ -I reviewed and agree with nursing and triage notes Were old charts reviewed (outside hosp., previous admission, EMS record, old EKG, old radiological studies, urgent care reports/EKG's, shelter records)? Report findings @ -No old charts were reviewed Differential Diagnosis (chest pain, altered mental status, abdominal pain women, abdominal pain men, vaginal bleeding, weakness, fever, dyspnea, syncope, headache, dizziness, GI bleed, back pain, seizure, CVA, palpatations, mental health, musculoskeletal)? @ -Finger laceration, abrasion, skin avulsion EKG interpreted by me (3pts min.). @ -None X-rays interpreted by me (1pt min.). @ -None done CT interpreted by me (1pt min.). @ -None done U/S interpreted by me (1pt. min.). @ -None done What testing was considered but not performed or refused? (CT, X-rays, U/S, labs)? Why? @ -None What meds were considered but not given or refused? Why? @ -None Did you discuss the management of the patient with other professionals (professionals i.e. , PA, BUILDING MAINTENANCE TECHNICIAN, lab, RT, psych nurse, social and political studies professor, machine shop repair technician, teacher, consular officer, case worker)? Give summary @ -No Was smoking cessation discussed for >3mins.? @ -No Was critical care preformed (if so, how long)? @ -No Were there social determinants of health that impacted care today? How? (Homelessness, low income, unemployed, alcoholism, drug addiction, transportation, low edu. Level, literacy, decrease access to med. care, fci, rehab)? @ -No Was there de-escalation of care discussed even if they declined (Discuss DNR or withdrawal of care, Hospice)? DNR status @ -No What co-morbidities impacted this encounter? (DM, HTN, Smoking, COPD, CAD, Cancer, CVA, ARF, Chemo, Hep., AIDS, mental health diagnosis, sleep apnea, morbid obesity)? @ -None Was patient admitted / discharged? Hospital course, mention meds given and route, prescriptions, significant lab abnormalities, going to OR and other pertinent info. @ -Discharge patient tetanus is updated finger was wrapped with dressing discharged in stable condition, wound is over 24 hours does not require closure Undiagnosed new problem with uncertain prognosis? @ -No Drug Therapy requiring intensive monitoring for toxicity (Heparin, Nitro, Insulin, Cardizem)? @ -No Were any procedures done? @ -No Diagnosis/symptom? @ -Finger laceration Acute, or Chronic, or Acute on Chronic? @ -Acute Uncomplicated (without systemic symptoms) or Complicated (systemic symptoms)? @ -Uncomplicated Side effects of treatment? @ -No Exacerbation, Progression, or Severe Exacerbation? @ -No Poses a threat to life or bodily function? How? (Chest pain, [place], AL, pneumonia, PE, COPD, DKA, ARF, appy, cholecystitis, CVA, Diverticulitis, Homicidal, Suicidal, threat to staff... and all critical care pts) @ -No Disposition Clinical Impression: Laceration of finger, left Disposition: HOME SELF-CARE Condition: Stable Instructions (If sedation given, give patient instructions): Finger Laceration (ED) Additional Instructions: Please return to the Emergency Department if symptoms worsen or any other concerns. Is patient prescribed a controlled substance at d/c from ED?: No Referrals: None,Stated [Primary Care Provider] - 1-2 days Time of Disposition: 11:59
[2023-01-10 16:06] VITALS: BP 123/81; PULSE 65; RESP 18; TEMP 97.9
== END 2023-01-10 12:27 | disposition home or self-care (01) ==
LOC: EC 11:23
DX: S61.412A Laceration without foreign body of left hand, initial encounter (principal); I25.10 Atherosclerotic heart disease of native coronary artery without angina pectoris; I25.2 Old myocardial infarction; Z87.891 Personal history of nicotine dependence; Z88.1 Allergy status to other antibiotic agents; Z88.8 Allergy status to other drugs, medicaments and biological substances; Z23 Encounter for immunization; W26.0XXA Contact with knife, initial encounter
CPT/HCPCS: 90471; 90715; 99282

== ENCOUNTER → 2023-08-01 | Outpatient (CLI) | payer OTHER ==
[2023-08-01 21:39] LABS: HCT 44.5 % (37.2-46.3); HGB 14.7 g/dL (12.0-15.0); MCH 29.4 pg (27.0-32.0); Mean Platelet Volume 10.1 FL (9.5-12.2); NRBC Per 100 WBC 0 X 10*3/uL (0.00-0.01); Platelet Count 248 X 10*3/uL (140-440); RDW 13.9 % (11.5-14.5); WBC 10.45 X 10*3/uL (4.50-10.00)
[2023-08-01 21:46] LABS: ALT 33 U/L (8-44); AST 27 U/L (13-35); Albumin 3.9 g/dL (3.8-4.9); Albumin/Globulin Ratio 1.39 Ratio (1.60-3.17); Alkaline Phosphatase 90 U/L (41-126); BUN/Creat Ratio 13.88 Ratio (12.00-20.00); Blood Urea Nitrogen 11.1 mg/dL (9.0-27.0); Calcium 8.3 mg/dL (8.7-10.3); Carbon Dioxide 31.9 mmol/L (21.6-31.8); Chloride 93 mmol/L (96-109); Globulin 2.8 g/dL (1.6-3.3); Glucose 111 mg/dL (70-110); LDL Cholesterol,Calculated 30.3 mg/dL (0.0-131.0); Potassium 3.3 mmol/L (3.5-5.5); Sodium 139 mmol/L (135-145); Total Bilirubin 0.5 mg/dL (0.3-1.2); Total Protein 6.7 g/dL (6.2-8.2)
== END | disposition home or self-care (01) ==
LOC: LABWHC1 11:12
PROVIDERS: ATTEND Internal Medicine
DX: E78.2 Mixed hyperlipidemia (principal); R73.02 Impaired glucose tolerance (oral); R69 Illness, unspecified
CPT/HCPCS: 36415; 80053; 80061; 83036; 84443; 85027

== ENCOUNTER → 2024-05-14 | Outpatient (CLI) | payer OTHER ==
[2024-05-14 15:22] LABS: ALT 21 U/L (8-44); AST 18 U/L (13-35); Albumin 4.4 g/dL (3.8-4.9); Albumin/Globulin Ratio 1.57 Ratio (1.60-3.17); Alkaline Phosphatase 84 U/L (41-126); BUN/Creat Ratio 26.22 Ratio (12.00-20.00); Blood Urea Nitrogen 23.6 mg/dL (9.0-27.0); Calcium 8.8 mg/dL (8.7-10.3); Carbon Dioxide 24.8 mmol/L (21.6-31.8); Chloride 100 mmol/L (96-109); Globulin 2.8 g/dL (1.6-3.3); Glucose 99 mg/dL (70-110); Potassium 4.3 mmol/L (3.5-5.5); Sodium 139 mmol/L (135-145); Total Bilirubin 0.4 mg/dL (0.3-1.2); Total Protein 7.2 g/dL (6.2-8.2)
[2024-05-14 15:23] LABS: T4, Free (Free Thyroxine) 1.16 ng/dL (0.80-1.80)
== END | disposition home or self-care (01) ==
LOC: LABWHC1 09:50
PROVIDERS: ATTEND Psychiatry & Neurology Psychiatry
DX: Z79.899 Other long term (current) drug therapy (principal)
CPT/HCPCS: 36415; 80053; 82306; 84439; 84443; 85025

== ENCOUNTER → 2024-07-14 | Outpatient (CLI) | payer OTHER ==
--- NOTE | 2024-07-14 12:27 | XR ---
EXAMINATION TYPE: XR knee limited bilateral DATE OF EXAM: 07/14/2024 12:13 PM COMPARISON: None. CLINICAL INDICATION: Female, 53 years old with history of M25.562, M25.561, pain TECHNIQUE: XR knee limited bilateral XX views were obtained. FINDINGS: There is no acute fracture/dislocation. The tri-compartment joint spaces appear severely narrowed me dially. The overlying soft tissue appears unremarkable. IMPRESSION: No acute fracture or dislocation [facility], , 07/14/2024 12:24 PM
== END | disposition home or self-care (01) ==
LOC: RADXRMAIN 11:50
PROVIDERS: ATTEND Family Medicine
DX: M25.562 Pain in left knee (principal); M25.561 Pain in right knee

== ENCOUNTER → 2024-08-24 | Outpatient (CLI) | payer OTHER ==
[2024-08-24 18:50] LABS: Blood Urea Nitrogen 22.3 mg/dL (9.0-27.0); Calcium 8.7 mg/dL (8.7-10.3); Carbon Dioxide 22.7 mmol/L (21.6-31.8); Chloride 100 mmol/L (96-109); Glucose 148 mg/dL (70-110); Potassium 4.2 mmol/L (3.5-5.5); Sodium 136 mmol/L (135-145)
== END | disposition home or self-care (01) ==
LOC: LABWHC1 13:05
PROVIDERS: ATTEND Nurse Practitioner Acute Care
DX: R60.0 Localized edema (principal)
CPT/HCPCS: 36415; 80048